=== PATIENT | female | born 1965 | race Caucasian/White ===

== ENCOUNTER → 2020-09-12 14:27 | Outpatient (BNVA) | payer MEDICAID, SELFPAY | PROVIDERS: PCP Internal Medicine; Referring Provider Internal Medicine; Visit Provider Nurse Practitioner Family | DX: Z01.818 Encounter for other preprocedural examination (principal) | CPT/HCPCS: 99203 ==

== ENCOUNTER 2020-11-09 08:34 | Outpatient (REF) | payer MEDICAID, SELFPAY | END 2020-11-09 08:35 | disposition home or self-care (01) | LOC: HO.HOSX 08:34 | PROVIDERS: Visit Provider Orthopaedic Surgery | DX: Z13.89 Encounter for screening for other disorder (principal) ==

== ENCOUNTER 2020-11-12 13:37 | Outpatient (REF) | payer MEDICAID, SELFPAY ==
--- NOTE | 2020-11-12 13:46 | MM_ITS ---
EXAMINATION: MM SCREENING DIGITAL BREAST TOMOSYNTHESIS, BILATERAL CLINICAL INFORMATION: Screening. Asymptomatic. The lifetime risk of breast cancer based on the Tyrer-Cuzick Model is 8%. COMPARISON: Mammography: 06/07/2019, 05/19/2018, 05/06/2017 TECHNIQUE: Digital breast tomosynthesis is performed in both the craniocaudal and mediolateral oblique views along with computer-aided detection (CAD). Synthesized 2D images are generated from the tomosynthesis. FINDINGS: There are scattered areas of fibroglandular density (ACR BI-RADS breast composition Category b). Breast tissue composition borders on heterogeneously dense. Parenchymal pattern is similar to prior studies. Scattered asymmetric parenchymal densities upper left breast are stable to decreased. Neither breast shows interval mass or architectural abnormality or abnormal calcifications. Skin contours are smooth. No significant changes. MM/MM tomosynthesis screening BI IMPRESSION: No significant changes from prior studies. ASSESSMENT: BI-RADS 2: Benign RECOMMENDATION: Routine annual mammography screening. This patient's information was entered into a reminder system with a target due date for their next mammogram.
== END 2020-11-12 13:38 | disposition home or self-care (01) ==
LOC: HO.MAMMO 13:37
PROVIDERS: PCP Internal Medicine; Visit Provider Internal Medicine
DX: Z12.31 Encounter for screening mammogram for malignant neoplasm of breast (principal)
CPT/HCPCS: 77063; 77067

== ENCOUNTER 2020-11-29 07:37 | Day surgery (SDC) | payer MEDICAID, SELFPAY ==
[2020-11-21 16:03] VITALS: BMI 29.2
--- NOTE | 2020-11-27 14:15 | HO.ANESPROP2 ---
Documented by User: Zahra Baeza 11/27/20 14:16 HPI - Anesthesia Eval Consult details Narrative: 55yo F for Colonoscopy PMFSH Past Medical History Medical History Asthma Diabetes mellitus Encounter for screening for malignant neoplasm of colon Gouty arthritis of left great toe HTN (hypertension) Migraine headache Right knee pain Family History Family History Father No problems noted. Mother No problems noted. Surgical History Surgical History No significant past surgical history Social History Social History Are you a primary transitions rn care coordinator to a significant other at home: No Do you presently have visiting nurse or other home services: No Alcohol intake: never Smoking Status: Never smoker Second Hand Smoke Exposure: No Use of substances other than those prescribed or required for medical reasons: No Have you been hit, kicked, punched, or otherwise hurt by someone within the past year? If so, by whom?: No Advance Directives: No Advance Directives Information Provided: No Advance Directives on File: No Recently lost weight without trying: No Meds Allergies Allergy/AdvReac Type Severity Reaction Status Date / Time No Known Allergies Allergy Unverified 11/21/20 16:00 [No Known Allergies*] Home Medications Medication Instructions Recorded Confirmed Type cholecalciferol (vitamin D3) 25 25 mcg PO DAILY 09/12/20 11/21/20 History mcg (1,000 unit) capsule famotidine 20 mg tablet 20 mg PO BID 09/12/20 11/21/20 History losartan 50 mg tablet 50 mg PO DAILY 09/12/20 11/21/20 History metformin 500 mg tablet 500 mg PO BID 09/12/20 11/21/20 History naproxen 375 mg tablet 375 mg PO BID PRN 09/12/20 11/21/20 History simethicone 125 mg capsule 125 mg PO TID-QID PRN 09/12/20 11/21/20 History sumatriptan succinate 50 mg tablet See Rx Instructions PO .COMPLEX PRN 09/12/20 11/21/20 History tramadol 50 mg tablet 50 mg PO Q8H PRN 09/12/20 11/21/20 History Exam Exam Date and Time: November 27, 2020 1415 Height,Weight and Vital Signs: Height 5 ft 2 in Weight 72.575 kg Assessment and Plan Assessment Anesthesia Assessment: Chart Reviewed Documented by User: Jasmine Davis 11/29/20 08:21 [facility] Past Medical History Medical History Asthma Diabetes mellitus Encounter for screening for malignant neoplasm of colon Gouty arthritis of left great toe HTN (hypertension) Migraine headache Right knee pain Family History Family History Father No problems noted. Mother No problems noted. Surgical History Surgical History No significant past surgical history Social History Social History Are you a primary transitions rn care coordinator to a significant other at home: No Do you presently have visiting nurse or other home services: No Alcohol intake: never Smoking Status: Never smoker Second Hand Smoke Exposure: No Use of substances other than those prescribed or required for medical reasons: No Have you been hit, kicked, punched, or otherwise hurt by someone within the past year? If so, by whom?: No Advance Directives: No Advance Directives Information Provided: No Advance Directives on File: No Recently lost weight without trying: No Meds Allergies Allergy/AdvReac Type Severity Reaction Status Date / Time No Known Allergies Allergy Unverified 11/21/20 16:00 [No Known Allergies*] Home Medications Medication Instructions Recorded Confirmed Type cholecalciferol (vitamin D3) 25 25 mcg PO DAILY 09/12/20 11/21/20 History mcg (1,000 unit) capsule famotidine 20 mg tablet 20 mg PO BID 09/12/20 11/21/20 History losartan 50 mg tablet 50 mg PO DAILY 09/12/20 11/21/20 History metformin 500 mg tablet 500 mg PO BID 09/12/20 11/21/20 History naproxen 375 mg tablet 375 mg PO BID PRN 09/12/20 11/21/20 History simethicone 125 mg capsule 125 mg PO TID-QID PRN 09/12/20 11/21/20 History sumatriptan succinate 50 mg tablet See Rx Instructions PO .COMPLEX PRN 09/12/20 11/21/20 History tramadol 50 mg tablet 50 mg PO Q8H PRN 09/12/20 11/21/20 History Exam Airway Mallampati Class: II TM Dist: >3cm Neck ROM: Full Assessment and Plan Assessment Anesthesia Assessment: Anesthesia Plan Discussed and Chart Reviewed Final Anesthetic Review NPO: Yes ASA Class: II Final Preanesthetic Review: No Changes in Pt Med Stat, Meds/Allgs Chart Reviewed, Consent Obtained/Reviewed and Anes Risks/Benef Reviewed Patient Risk: Intermediate Procedure Risk: Low Assessment/Block/Sedation in SS: Assess/Block/Sedation-SS Anesthetic Plan Anesthetic Plan: MAC: Disposition: Standard PACU
[2020-11-29 08:01] VITALS: BP 138/80; PULSE 91; RESP 18; TEMP 36.1; O2SAT 97
--- NOTE | 2020-11-29 08:21 | MHC.SHP ---
Pre-Procedural Eval Section B Chief Complaint: Screening Details of Present Illness: colon cancer screening#1 Relevant Family History (Specify if Yes): No Relevant Social History: None Present Medications: see Short Stay Collaborative assessment Medical History: No relevant PMH (Asthma, Diabetes,Hypertension) History of Previous Operations: No relevant previous surgery Allergies: Allergies Allergy/AdvReac Type Severity Reaction Status Date / Time No Known Allergies Allergy Unverified 11/21/20 16:00 [No Known Allergies*] Review of Systems Sugical H&P ROS: Negative: Constitution, Cardiovascular, Respiratory, Gastrointestinal and Endocrine Exam Surgical H&P Exam: Normal: HEENT, Normal: Heart, Normal: Lungs, Normal: Extremities and Normal: Abdomen Plan Diagnosis/Plan: Unchanged I have reviewed the history and physical and performed a pertinent physical examination on my patient. No changes have occurred unless specified.yes
[2020-11-29 08:25] LABS: Glucose, Whole Blood 149 mg/dL (60-115)
[2020-11-29 09:15] VITALS: BP 92/51; PULSE 88; RESP 16; TEMP 36.1; O2SAT 97
--- NOTE | 2020-11-29 09:15 | PM.PROC ---
Brief Operative Note Date of procedure: 11/29/20 Pre-op diagnosis: Colon Cancer Screening Post-op diagnosis: other (Neg, 1+ internal hemorrhoids.) Procedure: Colonoscopy Anesthesia: MAC (REBA Lugo) Surgeon: Luis Zuluaga Estimated blood loss (mL): 0 Pathology: none sent Condition: stable Disposition: PACU
--- NOTE | 2020-11-29 09:22 | P.HPSUR_ITS ---
Pre-Procedural Eval Section B Chief Complaint: Screening Details of Present Illness: Colon Cancer Screening--hx polyps Relevant Family History (Specify if Yes): No Relevant Social History: None Present Medications: see Short Stay Collaborative assessment Medical History: Significant History (Diabetes) History of Previous Operations: Relevant previous surgery/procedure and date(s) (colonoscopies--hx TAs) Allergies: Allergies Allergy/AdvReac Type Severity Reaction Status Date / Time No Known Allergies Allergy Unverified 11/21/20 16:00 [No Known Allergies*] Review of Systems Sugical H&P ROS: Negative: Constitution, Cardiovascular, Respiratory and G astrointestinal and Yes, Specify: Endocrine (Diabetic) Exam Surgical H&P Exam: Normal: HEENT, Normal: Heart, Normal: Lungs and Normal: Abdomen Plan Diagnosis/Plan: Unchanged I have reviewed the history and physical and performed a pertinent physical examination on my patient. No changes have occurred unless specified.--Yes
[2020-11-29 09:30] VITALS: BP 112/64; PULSE 85; RESP 16; TEMP 36.1; O2SAT 99
--- NOTE | 2020-11-29 09:58 | HO.POSTANES ---
Post Anesthesia Evaluation Post Anesthesia Evaluation Vital Signs: Vital Signs Temp Pulse Resp BP Pulse Ox 11/29/20 09:30 97 F 85 16 112/64 99 11/29/20 09:15 97 F 88 16 92/51 L 97 11/29/20 08:01 97.0 F 91 18 138/80 97 Anesthesia: General (tiva) Mental Status: Awake Pain Control: Satisfactory Nausea/Vomiting: None Hydration: Adequate Anesthesia-Related Issues: No Anes. Related Issues
--- NOTE | 2020-11-29 09:59 | PM.PROC ---
Brief Operative Note Date of procedure: 11/29/20 Pre-op diagnosis: Hx of polyps, screening Post-op diagnosis: other (Polyps, [id number]) Procedure: Colonoscopy CSP and excisional polypectomy with cbf. Anesthesia: MAC (Romeo Lugo CRNA) Surgeon: Emilia Zuluaga Estimated blood loss (mL): 5 Pathology: other (Ascending colon polyp, dim polyp-Hepatic Flexure) Condition: stable Disposition: PACU
--- NOTE | 2020-11-29 11:17 | OP_ITS ---
SURGEON: Emilia Zuluaga MD PREOPERATIVE DIAGNOSIS: Colon cancer screening. POSTOPERATIVE DIAGNOSIS: Normal exam, 1+ internal hemorrhoids. PROCEDURE PERFORMED: Colonoscopy. ESTIMATED BLOOD LOSS: No blood loss. COMPLICATIONS: No complications. ANESTHESIA: Monitored. ANESTHESIOLOGIST: Kevyn Lugo CRNA. ASSISTANTS: No anesthesiology physician assistant. SPECIMENS: No specimens removed. The patient has no listed primary care. BEHAVIORAL HEALTH CONSULTANT: Dr. Zuluaga. CONDITION: Postprocedure, stable. DESCRIPTION OF PROCEDURE: Digital rectal exam revealed no specific lesion. Video colonoscope was introduced without difficulty. It was navigated into the rectosigmoid and sigmoid and up to descending to transverse colon. At this point, gentle extrinsic abdominal pressure was applied to facilitate movement through hepatic flexure, right colon, and into the cecum. Appendiceal orifice was seen. Ileocecal valve was well seen. No mucosal abnormalities were appreciated. Prep was good to excellent. Scope was slowly removed. Good rotational views. No additional lesions were seen. Anorectal verge was clear. There were 1+ internal hemorrhoids in the anal canal. PLAN AND CURRENT RECOMMENDATIONS: Repeat asymptomatic screening in this patient will continue to be at 10 years. GRAFT OR IMPLANTS: No grafts or implants. Emilia Zuluaga MD MEN/MODL / [id number] MTDD
== END 2020-11-29 10:11 | disposition home or self-care (01) ==
PROVIDERS: PCP Internal Medicine; Visit Provider Internal Medicine Gastroenterology
PROC: 0DJD8ZZ Inspection of Lower Intestinal Tract, Via Natural or Artificial Opening Endoscopic (ICD-10-PCS; CPT 45378; principal; 2020-11-29 09:10)
DX: Z12.11 Encounter for screening for malignant neoplasm of colon (principal); Z86.010 Personal history of colon polyps; K64.8 Other hemorrhoids; E11.9 Type 2 diabetes mellitus without complications; J45.909 Unspecified asthma, uncomplicated; Z79.84 Long term (current) use of oral hypoglycemic drugs; Z79.899 Other long term (current) drug therapy
CPT/HCPCS: 45378; 82947

== ENCOUNTER 2020-12-06 08:53 | Outpatient (REF) | payer MEDICAID, SELFPAY ==
--- NOTE | 2020-12-06 13:15 | XR_ITS ---
EXAMINATION: XR KNEE, LEFT XR KNEE, RIGHT XR KNEE STANDING, BILATERAL CLINICAL INFORMATION: Bilateral knee pain. COMPARISON: None TECHNIQUE: AP bilateral knees standing. Two views each knee. FINDINGS: AP BILATERAL KNEE: There is mild reduction in the medial and lateral compartment joint space of both knees without bony erosive changes, loose bodies or joint effusion. LEFT KNEE: Lateral and sunrise views reveal no fracture, bony erosive changes or loose bodies. No abnormal joint effusion. RIGHT KNEE: Mild reduction in the patellofemoral compartment with periarticular spurring. No bony erosive changes or loose bodies seen. XR/XR knee LT 2V IMPRESSION: Mild reduction in medial and lateral compartment joint space on upright view standing likely early degenerative changes. Mild degenerative changes also involving the right knee patellofemoral compartment with periarticular spurring.
--- NOTE | 2020-12-06 13:15 | XR_ITS ---
EXAMINATION: XR KNEE, LEFT XR KNEE, RIGHT XR KNEE STANDING, BILATERAL CLINICAL INFORMATION: Bilateral knee pain. COMPARISON: None TECHNIQUE: AP bilateral knees standing. Two views each knee. FINDINGS: AP BILATERAL KNEE: There is mild reduction in the medial and lateral compartment joint space of both knees without bony erosive changes, loose bodies or joint effusion. LEFT KNEE: Lateral and sunrise views reveal no fracture, bony erosive changes or loose bodies. No abnormal joint effusion. RIGHT KNEE: Mild reduction in the patellofemoral compartment with periarticular spurring. No bony erosive changes or loose bodies seen. XR/XR knee RT 2V IMPRESSION: Mild reduction in medial and lateral compartment joint space on upright view standing likely early degenerative changes. Mild degenerative changes also involving the right knee patellofemoral compartment with periarticular spurring.
--- NOTE | 2020-12-06 13:15 | XR_ITS ---
EXAMINATION: XR KNEE, LEFT XR KNEE, RIGHT XR KNEE STANDING, BILATERAL CLINICAL INFORMATION: Bilateral knee pain. COMPARISON: None TECHNIQUE: AP bilateral knees standing. Two views each knee. FINDINGS: AP BILATERAL KNEE: There is mild reduction in the medial and lateral compartment joint space of both knees without bony erosive changes, loose bodies or joint effusion. LEFT KNEE: Lateral and sunrise views reveal no fracture, bony erosive changes or loose bodies. No abnormal joint effusion. RIGHT KNEE: Mild reduction in the patellofemoral compartment with periarticular spurring. No bony erosive changes or loose bodies seen. XR/XR knee standing BI IMPRESSION: Mild reduction in medial and lateral compartment joint space on upright view standing likely early degenerative changes. Mild degenerative changes also involving the right knee patellofemoral compartment with periarticular spurring.
== END 2020-12-06 08:54 | disposition home or self-care (01) ==
LOC: HO.HOSX 08:53
PROVIDERS: Visit Provider Orthopaedic Surgery
DX: M17.11 Unilateral primary osteoarthritis, right knee (principal); E11.9 Type 2 diabetes mellitus without complications
CPT/HCPCS: 20610; 73560; 73565; 99202

== ENCOUNTER 2021-05-20 07:22 | Emergency (ER) | payer MEDICAID, SELFPAY ==
--- NOTE | ~2021-05-20 | XR_ITS ---
EXAMINATION: XR FOOT, LEFT CLINICAL INFORMATION: Swelling and redness and pain left second and third toes. Evaluate for fracture or osteomyelitis COMPARISON: Previous x-ray July 2019 TECHNIQUE: AP, lateral, and oblique views of the left foot. FINDINGS: Bone alignment is normal. No acute fracture or dislocation is seen. No x-ray evidence of osteomyelitis is. There is a well-corticated ossification inferior to the medial malleolus that is unchanged, likely related to old trauma. Joint spaces are normal. Soft tissues are normal. XR/XR foot LT min 3V IMPRESSION: No acute fracture or x-ray evidence of osteomyelitis.
[2021-05-20 07:53] VITALS: BP 146/76; PULSE 86; RESP 14; TEMP 36.9; O2SAT 97; BMI 25.8
--- NOTE | 2021-05-20 09:31 | ED.EXTPRO ---
HPI - Extremity Problem General Chief complaint: Extremity Problem Stated complaint: left foot pain and swelling Time Seen by Provider: 05/20/21 08:12 Source: patient Mode of arrival: ambulatory Limitations: language barrier ( [place]an speaking only) History of Present Illness HPI Narrative: 55-year-old female who presents emergency department for evaluation of pain and swelling of her left 3rd and 4th toes. The symptoms started on Thursday, 3 days prior to evaluation, while the patient was at work. She states the pain came on suddenly and has been constant since then, the pain is severe, aching sensation which is 10/10 at its worst. Patient denied any injury. She denied any fever, chills, fatigue, nausea, vomiting, chest pain or shortness of breath. Patient states this is her 3rd episode of this type of pain and her last episode occurred approximately 6 months prior. She states that she was seen in the emergency department for both episodes but does not know the diagnosis that she was given or the treatment she was given. She states that she has not had any blood work or x-rays. She does have history of diabetes mellitus. Related Data Home Medications Medication Instructions Recorded Confirmed cholecalciferol (vitamin D3) 25 25 mcg PO DAILY 09/12/20 11/21/20 mcg (1,000 unit) capsule famotidine 20 mg tablet 20 mg PO BID 09/12/20 11/21/20 losartan 50 mg tablet 50 mg PO DAILY 09/12/20 11/21/20 metformin 500 mg tablet 500 mg PO BID 09/12/20 11/21/20 naproxen 375 mg tablet 375 mg PO BID PRN 09/12/20 11/21/20 simethicone 125 mg capsule 125 mg PO TID-QID PRN 09/12/20 11/21/20 sumatriptan succinate 50 mg tablet See Rx Instructions PO .COMPLEX PRN 09/12/20 11/21/20 tramadol 50 mg tablet 50 mg PO Q8H PRN 09/12/20 11/21/20 Previous Rx's Medication Instructions Recorded cephalexin 500 mg PO QID 7 Days #28 cap 05/20/21 colchicine [Colcrys] See Rx Instructions .ROUTE 05/20/21 .COMPLEX #6 tab Allergies Allergy/AdvReac Type Severity Reaction Status Date / Time No Known Allergies Allergy Verified 12/06/20 14:14 [No Known Allergies*] Review of Systems Review of Systems: Yes all other systems are reviewed and are negative [facility] Past Medical History [facility] Narrative: Social history: She denies tobacco, alcohol and drug use. Medical History Asthma Diabetes mellitus Encounter for screening for malignant neoplasm of colon Gouty arthritis of left great toe HTN (hypertension) Migraine headache Right knee pain Surgical History Hx of colonoscopy No significant past surgical history Family History Family History Father No problems noted. Mother No problems noted. 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 Physical Exam Vital Signs: Vital Signs: Last Vital Signs Temp 98.4 F 05/20/21 07:53 Pulse 86 05/20/21 07:53 Resp 14 05/20/21 07:53 BP 146/76 H 05/20/21 07:53 Pulse Ox 97 05/20/21 07:53 Body Mass Index 25.8 Const: General: cooperative and healthy appearing Nutritional Appearance: average body habitus Orientation/consciousness: oriented to person and oriented to place Limitations: no limitations HENMT: Head: Yes normal to inspection, Yes normocephalic and Yes atraumatic Resp: Effort & Inspection: normal respiratory effort Neuro: General: oriented to person and oriented to place Extrem: Other: The patient has erythema of the 2nd toe of the left foot with swelling of this toe, erythema does extend to the 3rd toe and also to the the distal aspect of the 2nd and 3rd metatarsals, patient has excruciating tenderness with palpation over the MTP joints of the 2nd 3rd toe. Psych: Appearance: grossly normal Mental Status: mental status grossly normal Speech and movement: Normal speech and movement present Affect: normal affect Attitude: cooperative Course Course Course Narrative: 55-year-old female who presents emergency department for evaluation of sudden onset of pain to the 2nd and 3rd toes of her left foot x3 days. Her examination did reveal erythema over the 2nd and 3rd toes extending to the proximal 2nd and 3rd metatarsal areas, patient has significant tenderness with palpation over the MTP joints with soft tissue swelling of the 2nd toe. The differential includes was not limited to cellulitis, osteomyelitis and gout. I did order laboratory evaluation and x-rays of the left toes. Patient's pain was treated with ibuprofen 600 mg orally. MDM - Extremity (Nontraumatic) Lab Data Result diagrams: 05/20/21 10:10 05/20/21 10:10 Labs: Lab Results 05/20/21 05/20/21 Range/Units 10:10 10:10 WBC 6.4 (4.8-10.8) X10*3/uL RBC 3.85 L (4.20-5.50) X10*6/uL Hgb 11.8 L (12.0-16.0) g/dl Hct 36.3 L (37-47) % MCV 94.3 (80-98) fL MCH 30.6 (27.0-33.0) pg MCHC 32.5 (31.0-35.0) g/dl RDW 13.5 (11.0-16.0) % Plt Count 288 (160-400) X10*3/uL MPV 9.4 (9.4-12.3) fL Immature Gran % (Auto) 0.3 (0.0-0.4) % Neut % (Auto) 49.7 (45-73) % Lymph % (Auto) 42.7 H (20-40) % [place] % (Auto) 5.6 (2-11) % Eos % (Auto) 1.1 (0-4) % Baso % (Auto) 0.6 (0-2) % Lymph # (Auto) 2.8 (1.2-4.9) X10*3/uL [place] # (Auto) 0.4 (0.1-1.2) X10*3/uL Eos # (Auto) 0.1 (0.0-0.4) X10*3/uL Baso # (Auto) 0.0 (0.0-0.2) X10*3/uL Abs Immat Gran (auto) 0.02 (0.00-0.03) X10*3/uL Absolute Neuts (auto) 3.2 (2.0-8.3) X10*3/uL Absolute Nucleated RBC 0.000 (0.0-0.012) X10*3/uL Nucleated RBC % (auto) 0.0 (0.0-0.2) /100WBC Sodium 139 (135-145) mmol/L Potassium 3.8 (3.3-5.1) mmol/L Chloride 107 (96-108) mmol/L Carbon Dioxide 29 (22-29) mmol/L Anion Gap 7 L (12-20) BUN 17 H (9-16) mg/dL Creatinine 0.76 (0.5-1.4) mg/dL Estim Creat Clear Calc 87.3 Estimated GFR > 60 Random Glucose 155 H (60-115) mg/dL Uric Acid 3.1 (2.4-5.7) mg/dL Calcium 9.0 (8.4-10.2) mg/dL Total Bilirubin 0.6 (0.0-1.0) mg/dL AST 14 (5-31) U/L ALT 13 (0-31) U/L Alkaline Phosphatase 91 (39-117) U/L Total Protein 6.8 (6.5-8.0) g/dL Albumin 3.9 (3.5-5.0) g/dL Discharge Plan Discharge Clinical Impression: Gout Qualifiers: Gout site: toe Gout etiology: unspecified cause Chronicity: acute Laterality: left Qualified Code(s): M10.9 - Gout, unspecified Cellulitis Qualifiers: Site of cellulitis: extremity Site of cellulitis of extremity: toe Laterality: left Qualified Code(s): L03.032 - Cellulitis of left toe Patient Disposition: Home, Self-Care Instructions: Cellulitis (ED), Gout (ED) Additional Instructions: your blood work was normal. Your x-rays were unremarkable. Your symptoms are consistent with gout or cellulitis (infection the toes). The symptoms difficult to tell the difference between these 2 conditions therefore I am treating her for both. Take Keflex (cephalexin) 500 mg pills, 1 pill 4 times a day for 7 days, this is an antibiotic And which treated infection. Take Colcrys (colchicine) 0.6 mg pills, take 2 pills and then 1 hour later take 1 pill. This medication will last for 3 days.You can repeat this medication 3 days if you are still having symptoms. Follow-up with your doctor in 2 days. Please return to the emergency department if your symptoms get worse or if you develop any symptoms that are concerning to you. Prescriptions: New colchicine [Colcrys] 0.6 mg tablet See Rx Instructions .ROUTE .COMPLEX Qty: 6 RF: 0 cephalexin 500 mg capsule 500 mg PO QID 7 Days Qty: 28 RF: 0 No Action simethicone [Gas Relief (simethicone)] 125 mg capsule 125 mg PO TID-QID PRN (Reason: Heartburn) RF: 0 tramadol 50 mg tablet 50 mg PO Q8H PRN (Reason: Pain) RF: 0 famotidine 20 mg tablet 20 mg PO BID RF: 0 metformin 500 mg tablet 500 mg PO BID RF: 0 naproxen 375 mg tablet 375 mg PO BID PRN (Reason: Pain) RF: 0 Hold Instructions: Resume on 12/06/20. post polypectomy sumatriptan succinate [Imitrex] 50 mg tablet See Rx Instructions PO .COMPLEX PRN (Reason: Migraine Headache) RF: 0 losartan 50 mg tablet 50 mg PO DAILY RF: 0 cholecalciferol (vitamin D3) 25 mcg (1,000 unit) capsule 25 mcg PO DAILY RF: 0 Print Language: [place]
[2021-05-20] MEDS: Ibuprofen 600 MG TABLET PO (10:07)
[2021-05-20 10:13] LABS: MANUAL DIFF FLAG NO
[2021-05-20 10:15] LABS: Basophils Percent Auto 0.6 % (0-2); Eosinophils Absolute Auto 0.1 X10*3/uL (0.0-0.4); Eosinophils Percent Auto 1.1 % (0-4); Hematocrit 36.3 % (37-47); Hemoglobin 11.8 g/dl (12.0-16.0); Imm Gran Abs Auto 0.02 X10*3/uL (0.00-0.03); Imm Gran Pct Auto 0.3 % (0.0-0.4); Lymphocytes Absolute Auto 2.8 X10*3/uL (1.2-4.9); Lymphocytes Percent Auto 42.7 % (20-40); Mean Corpuscular HGB Conc 32.5 g/dl (31.0-35.0); Mean Corpuscular Hemoglobin 30.6 pg (27.0-33.0); Mean Corpuscular Volume 94.3 fL (80-98); Mean Platelet Volume 9.4 fL (9.4-12.3); Monocytes Absolute Auto 0.4 X10*3/uL (0.1-1.2); Monocytes Percent Auto 5.6 % (2-11); Neutrophils Absolute Auto 3.2 X10*3/uL (2.0-8.3); Neutrophils Percent Auto 49.7 % (45-73); Platelet Count 288 X10*3/uL (160-400); Red Blood Count 3.85 X10*6/uL (4.20-5.50); Red Cell Distribution Width 13.5 % (11.0-16.0); White Blood Count 6.4 X10*3/uL (4.8-10.8)
[2021-05-20 10:54] LABS: Alanine Aminotransferase 13 U/L (0-31); Albumin Level 3.9 g/dL (3.5-5.0); Alkaline Phosphatase 91 U/L (39-117); Anion Gap 7 (12-20); Aspartate Amino Transferase 14 U/L (5-31); Bilirubin Total 0.6 mg/dL (0.0-1.0); Blood Urea Nitrogen 17 mg/dL (9-16); Carbon Dioxide 29 mmol/L (22-29); Chloride 107 mmol/L (96-108); Creatinine Clr Calc Pharmacy 87.3; Estimated Glomerular Filt Rate > 60; Glucose Random 155 mg/dL (60-115); Potassium 3.8 mmol/L (3.3-5.1); Sodium 139 mmol/L (135-145); Total Protein 6.8 g/dL (6.5-8.0)
[2021-05-20 12:15] LABS: Uric Acid 3.1 mg/dL (2.4-5.7)
== END 2021-05-20 13:16 | disposition home or self-care (01) ==
PROVIDERS: Emergency Provider Emergency Medicine Emergency Medical Services; PCP Internal Medicine
DX: L03.032 Cellulitis of left toe (principal); M10.9 Gout, unspecified; E11.9 Type 2 diabetes mellitus without complications; Z79.84 Long term (current) use of oral hypoglycemic drugs
CPT/HCPCS: 36415; 73630; 80053; 84550; 85025; 99283

== ENCOUNTER 2021-08-15 10:00 | Outpatient (RCR) | payer MEDICAID, SELFPAY | END 2021-08-15 11:10 | disposition home or self-care (01) | LOC: HO.PT 10:00 | PROVIDERS: PCP Internal Medicine; Visit Provider Registered Nurse Community Health | DX: M79.672 Pain in left foot (principal) | CPT/HCPCS: 97110; 97112; 97140; 97161; 97530 ==

== ENCOUNTER 2022-04-16 09:37 | Outpatient (REF) | payer MEDICAID, SELFPAY ==
[2022-04-16 10:36] LABS: COVID-19 Test Negative (Negative)
== END 2022-04-16 09:38 | disposition home or self-care (01) ==
LOC: HO.LAB 09:37
PROVIDERS: Visit Provider Internal Medicine
DX: Z20.822 Contact with and (suspected) exposure to COVID-19 (principal)
CPT/HCPCS: 87635; C9803

== ENCOUNTER → 2022-08-21 12:06 | Outpatient (BNVA) | payer MEDICAID, SELFPAY | PROVIDERS: PCP Internal Medicine; Referring Provider Internal Medicine; Visit Provider Internal Medicine Cardiovascular Disease | DX: R06.02 Shortness of breath (principal) | CPT/HCPCS: 93005; 99202 ==

== ENCOUNTER 2022-09-05 08:52 | Emergency (ER) | payer MEDICAID, SELFPAY ==
--- NOTE | ~2022-09-05 | XR_ITS ---
EXAMINATION: XR CHEST CLINICAL INFORMATION: Cough. COMPARISON: None TECHNIQUE: Frontal view of the chest was obtained. FINDINGS: No significant abnormality is noted involving the heart, lungs, mediastinum, bony thorax or soft tissues. XR/XR chest 1V IMPRESSION: No acute cardiopulmonary process.
[2022-09-05 09:02] VITALS: BP 146/93; PULSE 99; RESP 18; TEMP 36.8; O2SAT 97; BMI 30.2
[2022-09-05 09:30] LABS: COVID-19 Test Negative (Negative); IDNOW Serial# 16C4AD1C
--- NOTE | 2022-09-05 10:22 | ED_ITS ---
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 Patient states that she has been consistently coughing for the last week with mild nasal congestion that does not seem to be getting any better. Patient denies any dizziness, lightheadedness, abdominal pain, nausea, vomiting, fever, chills, blurry vision, double vision, loss of vision, chest pain, difficulty breathing, shortness of breath, back pain, night sweats, pain with urination, increased urinary frequency, increased urinary urgency, blood in her urine or stool, syncope or a near syncopal episode, recent trauma or falls, bowel incontinence, bladder incontinence, bowel retention, bladder retention, or any other complaints at this time. Onset (ago): week(s) (1) Severity: mild Severity scale (1-10): 2 Relieving factors: none Exacerbating factors: none Associated symptoms: cough Treatments prior to arrival: none Related Data Home Medications Medication Instructions Recorded Confirmed cholecalciferol (vitamin D3) 25 25 mcg PO DAILY 09/12/20 08/21/22 mcg (1,000 unit) capsule famotidine 20 mg tablet 20 mg PO BID 09/12/20 08/21/22 losartan 50 mg tablet 50 mg PO DAILY 09/12/20 08/21/22 naproxen 375 mg tablet 375 mg PO BID PRN Pain 09/12/20 08/21/22 simethicone 125 mg capsule (Gas 125 mg PO TID-QID PRN Heartburn 09/12/20 08/21/22 Relief (simethicone)) sumatriptan succinate 50 mg tablet See Rx Instructions PO .COMPLEX 09/12/20 08/21/22 (Imitrex) PRN Migraine Headache tramadol 50 mg tablet 50 mg PO Q8H PRN Pain 09/12/20 08/21/22 albuterol sulfate 90 mcg/actuation 2 puff inhalation Q4H PRN 08/21/22 08/21/22 aerosol inhaler (ProAir HFA) dapagliflozin 5 mg tablet (Farxiga) 5 mg PO QAM 08/21/22 08/21/22 glipizide 10 mg tablet 10 mg PO DAILY 08/21/22 08/21/22 metformin 1,000 mg tablet 1,000 mg PO BID 08/21/22 08/21/22 omeprazole 20 mg capsule,delayed 20 mg PO DAILY 08/21/22 08/21/22 release Previous Rx's Medication Instructions Recorded cephalexin 500 mg capsule 500 mg PO QID 7 days #28 caps 05/20/21 colchicine 0.6 mg tablet (Colcrys) See Rx Instructions .Route 05/20/21 .COMPLEX #6 tabs benzonatate 100 mg capsule 100 mg PO BID PRN cough 7 days #14 09/05/22 caps doxycycline hyclate 100 mg tablet 100 mg PO BID 7 days #14 tabs 09/05/22 prednisone 20 mg tablet 20 mg PO DAILY 12 days #26 tabs 09/05/22 Allergies Allergy/AdvReac Type Severity Reaction Status Date / Time No Known Allergies Allergy Verified 09/05/22 09:02 [No Known Allergies*] Review of Systems Constitutional: Constitutional: Reports no additional constitutional complaints, Denies chills, Denies fever(s) and Denies night sweats Eyes: Eyes: Reports no additional eye complaints, Denies blurry vision, Denies change in vision, Denies diplopia, Denies eye discharge, Denies loss of vision and Denies eye pain ENT: Denies dizziness and Reports sinus pressure Cardiovascular: Cardiovascular: Reports no additional cardiovascular complaints, Denies chest pain, Denies lightheadedness, Denies Loss of Consciousness and Denies dyspnea Respiratory: Respiratory: Reports no additional respiratory complaints, Reports cough and Denies dyspnea Gastrointestinal: Gastrointestinal: Reports no additional gastrointestinal complaints, Denies abdominal pain, Denies melena, Denies hematochezia, Denies change in bowel habits and Denies change in stool character Genitourinary: Genitourinary: Denies hematuria, Denies urinary frequency, Denies dysuria, Denies urinary incontinence, Denies urinary hesitancy and Denies urinary urgency Musculoskeletal: Musculoskeletal: Reports no additional musculoskeletal complaints, Denies numbness and Denies tingling Neurologic: Denies dizziness, Denies loss of vision, Denies numbness and Denies tingling Psychiatric: Psychiatric: Reports no additional psychiatric complaints Endocrine: Endocrine: Reports no additional endocrine complaints Hematologic/Lymphatic: Hematologic/Lymphatic: Reports no additional hematologic/lymphatic complaints Allergic/Immunologic: Allergic/Immunologic: Reports no additional allerg ic/immunologic complaints PMFSH Past Medical History Attestation statement: The following information was validated with the patient. Source: old records reviewed Medical History Asthma Diabetes mellitus Encounter for screening for malignant neoplasm of colon Gouty arthritis of left great toe HTN (hypertension) Migraine headache Right knee pain Surgical History Hx of colonoscopy No significant past surgical history Family History Family History Father No problems noted. Mother No problems noted. 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 Physical Exam ED Vital Signs: Vital Signs - 24 hr 09/05/22 09:02 Temperature 98.2 F Pulse Rate 99 Respiratory Rate 18 Blood Pressure 146/93 H Pulse Oximetry 97 Oxygen Delivery Method Room Air BMI result Body Mass Index 30.2 Const General: cooperative, no acute distress, alert and awake Nutritional Appearance: well nourished Orientation/consciousness: patient oriented x3 Limitations: no limitations [facility] Head: Yes normal to inspection and Yes atraumatic Ears: hearing grossly normal bilaterally and external ears normal General nose exam: Normal external nose present, no nasal discharge noted and no epistaxis Face and sinus: Yes normal facial exam, No abrasion and No laceration Mouth: Normal oral and palatal mucosa present, no drooling and no muffled voice Eyes General: appearance normal, both eyes and all related structures Periorbital: periorbital findings normal Eyelids: Yes eyelids normal Conjunctivae: conjunctivae normal Pupils: Equal, round and reactive pupils present EOM: EOMs intact bilaterally Neck Neck: Yes normal visual inspection, Yes full ROM and Yes no lymphadenopathy Chest Chest palpation & inspection: normal inspection of the chest Resp Effort & Inspection: normal respiratory effort and able to speak in complete sentences Auscultation: clear to auscultation bilaterally Cardio Rate: regular rate Rhythm: regular rhythm GI Inspection: Yes normal to inspection Neuro General: patient oriented x3 and moves all extremities Cranial nerves: Yes Equal, round and reactive pupils present Cognition (Neuro): normal cognition Motor exam (neuro): 5/5 motor strength present throughout Sensory Exam: Normal double simultaneous stimulation for sensation Coordination: [id number]-[id number] test normal Extrem General: Yes normal to inspection, Yes full ROM and Yes capillary refill normal Psych Appearance: grossly normal Mental Status: mental status grossly normal Affect: normal affect Attitude: cooperative Thought process: Normal thought process present Thought content: Normal thought content present Insight: Good insight present (Psych) Medical Decision Making MDM Narrative Medical decision making narrative: Patient is a 57 year old assigned female with a history of diabetes presenting to the emergency department today with a cough. Patient's physical exam was unremarkable. Patient's rapid COVID-19 test was negative. Patient's chest x-ray showed no acute process. I explained my physical exam findings as well as all test results to the patient. I answered all questions asked by the patient. I stressed the importance of the patient taking her medication as prescribed. I stressed the importance of the patient following up with her primary care provider. I stressed the importance of the patient returning to the emergency department immediately if her symptoms were to worsen or if she were to develop any dizziness, shortness of breath, difficulty breathing, chest pain, blurry vision, loss of vision, nausea, vomiting, abdominal pain, fever, chills, back pain, or any other complaints. Patient verbalized agreement and understanding with this treatment plan and discharge. Medical Records Medical records reviewed: Yes I reviewed the patient's medical records. Lab Data Lab results reviewed: Yes I reviewed the patient's lab results. Labs: Lab Results 09/05/22 Range/Units 09:06 COVID-19 (ZAN) Negative (Negative) COVID-19 Clin Com See Note Imaging Data Chest x-ray: Attestation: I personally reviewed and interpreted this imaging study as follows: My impression: No acute process. Radiologist's impression: EXAMINATION: XR CHEST CLINICAL INFORMATION: Cough. COMPARISON: None TECHNIQUE: Frontal view of the chest was obtained. FINDINGS: No significant abnormality is noted involving the heart, lungs, mediastinum, bony thorax or soft tissues. XR/XR chest 1V IMPRESSION: No acute cardiopulmonary process. ? Dictated By: Los Valladares MD Signed By: Electronically signed by Los Valladares MD 09/05/22 0955 Discharge Plan Discharge Clinical Impression: Upper respiratory infection Patient Disposition: Home, Self-Care Instructions: Upper Respiratory Infection (ED) Additional Instructions: Follow up with your primary care provider. Return to the emergency department immediately if your symptoms worsen or if you develop any dizziness, shortness of breath, difficulty breathing, chest pain, blurry vision, loss of vision, n ausea, vomiting, abdominal pain, fever, chills, back pain, or any other complaints. Roxy un seguimiento con rothman proveedor de atenci?n primaria. Regrese al departamento de emergencias de inmediato si dion s?ntomas empeoran o si presenta mareos, falta de aire, dificultad para respirar, dolor de pecho, visi?n borrosa, p?rdida de la visi?n, n?useas, v?mitos, dolor abdominal, fiebre, escalofr?os, dolor de espalda o cualquier otras quejas. Prescriptions: New benzonatate 100 mg capsule 100 mg PO BID PRN (Reason: cough) 7 Days Qty: 14 0RF prednisone 20 mg tablet 20 mg PO DAILY 12 Days Qty: 26 0RF Rx Instructions: Take 3 tablets for 5 days THEN; Take 2 tablets for 4 days THEN; Take 1 tablet for 3 days doxycycline hyclate 100 mg tablet 100 mg PO BID 7 Days Qty: 14 0RF No Action colchicine [Colcrys] 0.6 mg tablet See Rx Instructions .ROUTE .COMPLEX Qty: 6 0RF Rx Instructions: take 2 pills ( 1.2 mg) and 1 hour later take 1 pill ( 0.6 mg ). May repeat in 3 days if still symptomatic. cephalexin 500 mg capsule 500 mg PO QID 7 Days Qty: 28 0RF simethicone [Gas Relief (simethicone)] 125 mg capsule 125 mg PO TID-QID PRN (Reason: Heartburn) tramadol 50 mg tablet 50 mg PO Q8H PRN (Reason: Pain) famotidine 20 mg tablet 20 mg PO BID naproxen 375 mg tablet 375 mg PO BID PRN (Reason: Pain) Hold Instructions: Resume on 12/06/20. post polypectomy sumatriptan succinate [Imitrex] 50 mg tablet See Rx Instructions PO .COMPLEX PRN (Reason: Migraine Headache) Rx Instructions: take 1 tab at onset of headache; if no relief may repeat 1 tab after at least 2 hrs; max = 4 tabs/24 hr PO losartan 50 mg tablet 50 mg PO DAILY cholecalciferol (vitamin D3) 25 mcg (1,000 unit) capsule 25 mcg PO DAILY albuterol sulfate [ProAir HFA] 90 mcg/actuation HFA aerosol inhaler 2 puff inhalation Q4H PRN metformin 1,000 mg tablet 1,000 mg PO BID glipizide 10 mg tablet 10 mg PO DAILY omeprazole 20 mg capsule,delayed release(DR/EC) 20 mg PO DAILY Farxiga 5 mg tablet 5 mg PO QAM Referrals: Brianna Matt MD [Primary Care Provider] - Stand Alone Forms: Work/School Release Interventions: ED Discharge Assessment Last Done: 09/05/22 10:58 Discharge Date/Time: 09/05/22 10:58 Print Language: Hungarian
== END 2022-09-05 10:58 | disposition home or self-care (01) ==
PROVIDERS: Emergency Provider Student in an Organized Health Care Education/Training Program; PCP Internal Medicine
DX: J06.9 Acute upper respiratory infection, unspecified (principal); R05.9 Cough, unspecified; Z20.822 Contact with and (suspected) exposure to COVID-19
CPT/HCPCS: 71045; 87635; 99282; 99283

== ENCOUNTER → 2022-10-23 08:17 | Outpatient (REF) | payer MEDICAID, SELFPAY ==
--- NOTE | 2022-10-23 | CA_ITS ---
Transthoracic Echocardiogram Patient (Last, First, Middle): Nita Quintanilla, Gender: Female Date of : 1965 Age: 57 Procedure Date: 10/23/2022 Procedure Type: Transthoracic Echocardiogram Location: OP Height: 152.4 cm Weight: 72.58 kg BSA: 1.70 m2 Heart Rate: bpm BP: 130 / 78 mmHg Rn Case Manager: TO Referring MD: Willy Lamar MD Rag Sorter And Cutter: Willy Lamar MD Symptoms: R06.02 - Shortness of breath Study Quality: Fair ECG Rhythm: Sinus Conclusions: - 1. Normal LV systolic function with mild LVH with grade 1 diastolic dysfunction 2. Normal cardiac valvular Doppler 3. Normal RV systolic pressure 4. No gross pericardial effusion Findings Left Ventricle Normal left ventricular size and systolic function. There is mildly increased left ventricular wall thickness. The visually estimated ejection fraction is between 55-60%. Spectral Doppler is indicative of an impaired relaxation filling pattern. E/E prime ratio is <8, consistent with normal filling pressures. Evidence suggests grade I (mild) diastolic dysfunction. Right Ventricle Normal right ventricular cavity size and systolic function. Atria Both atria are normal in size. There is no evidence of interatrial shunt. Aortic Valve Normal aortic valve structure and function. There is no aortic valve stenosis. There is no aortic valve regurgitation. Mitral Valve Normal mitral valve structure and function. There is trace mitral valve regurgitation. There is no mitral valve stenosis. Pulmonic Valve The pulmonic valve is likely normal. Tricuspid Valve Normal tricuspid valve structure. There is trace tricuspid valve regurgitation. The right ventricular systolic pressure is normal. The right ventricular systolic pressure is 16 mmHg. Normal right atrial pressure. There is no evidence of pulmonary hypertension. Great Vessels All visible segments of the aorta are normal in size. The pulmonary artery was not well visualized. Venous The inferior vena cava is normal in size and collapses greater than 50% with inspiration. Pericardium/Pleural There is no evidence of pericardial effusion. Prior Study Comparison No prior study available for comparison. Measurements 2D Linear Measurements IVSd: 1.39 0.6-0.9/0.6-1.0 cm LVIDd: 3.42 3.9-5.3/4.2-5.9 cm LVIDd Index: 2.01 2.4-3.2/2.2-3.1 cm/m2 LVIDs: 1.54 2.0-3.6 cm LVPWd: 1.35 0.7-1.1 cm LA Diam: 2.80 2.7-3.8/3.0-4.0 cm LAIDs Index: 1.65 1.5-2.3 cm/m2 LV Mass: 201.49 67-162/88-224 g LV Mass Index: 118.53 43-95/49-115 g/m2 LVOT Diam: 2.00 3.0+(-)1.3 cm 2D Systolic Function EF 4C: 59.90 >55% EF 2C: 60.20 >55% EF BiP: 59.10 >55% Mitral Valve MV Pk E: 0.54 MV PK A: 0.58 MV Decel Time: 191.00 E/A: 0.90 E'Lateral: 7.07 E'Medial: 5.55 E/E' Med: 9.80 E/E' Lat: 7.70 PHT: 56.00 MVA PHT: 3.93 Decel Pasco: 2.85 Aortic Valve AoV Pk Dung: 1.36 AoV Mn Dung: 0.86 AoV VTI: 0.24 AoV Pk Grad: 7.00 Aov Mn Grad: 3.00 SHAKILA Cont.VTI: 2.03 LVOT LVOT Pk Dung: 0.84 LVOT Mn Dung: 0.56 LVOT VTI: 0.16 LVOT Pk Grad: 3.00 LVOT Mn Grad: 1.00 LVOT Diam: 2.00 LVOT Area: 3.14 Diastolic Function MV Pk E: 0.54 MV Pk A: 0.58 E/A: 0.90 E'Medial: 5.55 E/E' Med: 9.80 E' Laterial: 7.07 E/E' Lat: 7.70 Right Ventricle TAPSE (mm): 17.90 TVS' Dung: 10.10 Tricuspid Valve TR Pk Dung: 1.81 TR Pk Grad: 13.00 RA Press: 3.00 RVSP: 16.00 Great Vessels Aorta Sinus of Valsalva: 3.67 2.0-3.[address] [place]: 2.91 1.7-3.4 cm Ao Asc: 3.50 2.1-3.4 cm Updated in Other Vendor System with Status of Final Willy Lamar MD electronically signed on 10/23/2022 12:17:47 PM with status of Final
--- NOTE | 2022-10-23 08:20 | CA_ITS ---
Acquisition Time: 2022-10-23 09:23:23 Total Exercise Time: 00:06:45 Test Indications: Shortness of breath Medications: See H Protocol: CELESTINO Max HR: 173 BPM 104% of Pred: 165 BPM Max BP: 150/072 mmHG Max Work Load: 8.1 METS Exercise stress test with exercise 6 min 45 sec of Celestino protocol, achieving 104% MPHR, 8.1 METs, with mild sob and fatigue, no chest discomfort, with isolated PACs, with normotensive response to exercise, without EKG chagnes meeting criteria for ischemia. Test reviewed with Dr Neal Referred By: Willy Lamar Overread By: BAILEY FELICIANO
== END ==
LOC: HO.CARD 08:17
PROVIDERS: PCP Internal Medicine; Visit Provider Internal Medicine Cardiovascular Disease
DX: R06.02 Shortness of breath (principal)
CPT/HCPCS: 93017; 93306

== ENCOUNTER → 2022-11-19 12:36 | Outpatient (BNVA) | payer MEDICAID, SELFPAY | PROVIDERS: PCP Internal Medicine; Referring Provider Internal Medicine; Visit Provider Nurse Practitioner Family | DX: R07.89 Other chest pain (principal); R06.02 Shortness of breath; I10 Essential (primary) hypertension; E11.9 Type 2 diabetes mellitus without complications | CPT/HCPCS: 99212 ==

== ENCOUNTER 2022-12-12 14:43 | Emergency (ER) | payer MEDICAID, SELFPAY ==
--- NOTE | ~2022-12-12 | US_ITS ---
EXAMINATION: US ABDOMEN LIMITED CLINICAL INFORMATION: Right-sided pain, upper and lower. COMPARISON: None TECHNIQUE: Real-time imaging of the right upper quadrant abdominal viscera. FINDINGS: PANCREAS: Normal. LIVER: Normal. The liver is normal in size. The liver contour is normal. Parenchymal echogenicity is normal. No focal hepatic lesion. There is no intrahepatic biliary duct dilatation seen. GALLBLADDER: Normal. The gallbladder is physiologically distended without evidence of stones, sludge, polyps, wall thickening or pericholecystic fluid. COMMON BILE DUCT: Normal in caliber measuring 0.4 cm in diameter. RIGHT KIDNEY: There is a 1.3 cm cyst of the upper pole the right kidney. No hydronephrosis. No renal calculi or solid parenchymal lesions. The kidney measures 10.5 cm in maximum dimension. FREE FLUID: None. US/US abdomen limited IMPRESSION: No acute findings.
[2022-12-12 14:57] VITALS: BP 133/81; PULSE 112; RESP 18; TEMP 36.2; O2SAT 99; BMI 29.0
--- NOTE | 2022-12-12 14:59 | ED_ITS ---
HPI - Abdominal Pain General Chief Complaint: Abdominal Pain <Ayanna Hankins CNP - Last Filed: 12/12/22 15:06> Stated Complaint: r side pain <Ayanna Hankins CNP - Last Filed: 12/12/22 15:06> Time Seen by Provider: 12/12/22 16:02 <Ayanna Hankins CNP - Last Filed: 12/12/22 15:06> Source: patient <MATTEO Anthony - Last Filed: 12/12/22 21:25> Mode of arrival: ambulatory <MATTEO Anthony Last Filed: 12/12/22 21:25> Limitations: no limitations <MATTEO Anthony Last Filed: 12/12/22 21:25> History of Present Illness HPI narrative: Patient is a 57 year old assigned female at with a history of HTN and DM presenting to the emergency department today with right sided flank pain. Patient states that the pain has been intermittent for the last few days. Patient states that the pain increases with bending over. Patient denies any dizziness, lightheadedness, nausea, vomiting, fever, chills, blurry vision, double vision, loss of vision, chest pain, difficulty breathing, shortness of breath, back pain, night sweats, pain with urination, increased urinary frequency, increased urinary urgency, blood in her urine or stool, syncope or a near syncopal episode, recent trauma or falls, bowel incontinence, bladder inc ontinence, bowel retention, bladder retention, or any other complaints at this time. <MATTEO Anthony - Last Filed: 12/12/22 21:25> MD elicited complaint: abdominal pain and flank pain <MATTEO Anthony Last Filed: 12/12/22 21:25> Pertinent past history: none <MATTEO Anthony Last Filed: 12/12/22 21:25> Onset (ago): day(s) <MATTEO Anthony Last Filed: 12/12/22 21:25> Pain Consistency: intermittent <MATTEO Anthony Last Filed: 12/12/22 21:25> Location: R flank <MATTEO Anthony Last Filed: 12/12/22 21:25> Severity: mild <MATTEO Anthony - Last Filed: 12/12/22 21:25> Pain scale (0-10): 4 <MATTEO Anthony - Last Filed: 12/12/22 21:25> Quality: dull <MATTEO Anthony - Last Filed: 12/12/22 21:25> Radiation: none <MATTEO Anthony - Last Filed: 12/12/22 21:25> Exacerbating factors: nothing <MATTEO Anthony - Last Filed: 12/12/22 21:25> Relieving factors: nothing <MATTEO Anthony - Last Filed: 12/12/22 21:25> Associated symptoms: denies other symptoms <MATTEO Anthony - Last Filed: 12/12/22 21:25> Related Data Home Medications: Home Medications Medication Instructions Recorded Confirmed cholecalciferol (vitamin D3) 25 25 mcg PO DAILY 09/12/20 11/19/22 mcg (1,000 unit) capsule famotidine 20 mg tablet 20 mg PO BID 09/12/20 11/19/22 losartan 50 mg tablet 50 mg PO DAILY 09/12/20 11/19/22 naproxen 375 mg tablet 375 mg PO BID PRN Pain 09/12/20 11/19/22 simethicone 125 mg capsule (Gas 125 mg PO TID-QID PRN Heartburn 09/12/20 11/19/22 Relief (simethicone)) sumatriptan succinate 50 mg tablet See Rx Instructions PO .COMPLEX 09/12/20 11/19/22 (Imitrex) PRN Migraine Headache tramadol 50 mg tablet 50 mg PO Q8H PRN Pain 09/12/20 11/19/22 albuterol sulfate 90 mcg/actuation 2 puff inhalation Q4H PRN 08/21/22 11/19/22 aerosol inhaler (ProAir HFA) dapagliflozin 5 mg tablet (Farxiga) 5 mg PO QAM 08/21/22 11/19/22 glipizide 10 mg tablet 10 mg PO DAILY 08/21/22 11/19/22 metformin 1,000 mg tablet 1,000 mg PO BID 08/21/22 11/19/22 omeprazole 20 mg capsule,delayed 20 mg PO DAILY 08/21/22 11/19/22 release Previous Rx's Medication Instructions Recorded cephalexin 500 mg capsule 500 mg PO QID 7 days #28 caps 05/20/21 colchicine 0.6 mg tablet (Colcrys) See Rx Instructions .Route 05/20/21 .COMPLEX #6 tabs benzonatate 100 mg capsule 100 mg PO BID PRN cough 7 days #14 09/05/22 caps doxycycline hyclate 100 mg tablet 100 mg PO BID 7 days #14 tabs 09/05/22 prednisone 20 mg tablet 20 mg PO DAILY 12 days #26 tabs 09/05/22 cephalexin 500 mg capsule 500 mg PO Q6H 7 days #28 caps 12/12/22 <Ayanna Hankins CNP - Last Filed: 12/12/22 15:06> Allergies/Adverse Reactions: Allergies Allergy/AdvReac Type Severity Reaction Status Date / Time No Known Allergies Allergy Verified 12/12/22 15:03 [No Known Allergies*] <Ayanna Hankins CNP - Last Filed: 12/12/22 15:06> Review of Systems Constitutional: Reports no additional constitutional complaints, Denies chills, Denies fever(s) and Denies night sweats <MATTEO Anthony - Last Filed: 12/12/22 21:25> Eyes: Reports no additional eye complaints, Denies blurry vision, Denies change in vision, Denies diplopia, Denies eye discharge, Denies loss of vision and Denies eye pain <MATTEO Anthony - Last Filed: 12/12/22 21:25> Denies dizziness <MATTEO Anthony - Last Filed: 12/12/22 21:25> Cardiovascular: Reports no additional cardiovascular complaints, Denies chest pain, Denies lightheadedness, Denies Loss of Consciousness and Denies dyspnea <MATTEO Anthony - Last Filed: 12/12/22 21:25> Respiratory: Reports no additional respiratory complaints and Denies dyspnea <MATTEO Anthony - Last Filed: 12/12/22 21:25> Gastrointestinal: Reports no additional gastrointestinal complaints, Reports abdominal pain, Denies melena, Denies hematochezia, Denies change in bowel habits and Denies change in stool character <MATTEO Anthony Last Filed: 12/12/22 21:25> Genitourinary: Denies hematuria, Denies urinary frequency, Denies dysuria, Denies urinary incontinence, Denies urinary hesitancy and Denies urinary urgency <MATTEO Anthony - Last Filed: 12/12/22 21:25> Musculoskeletal: Reports no additional musculoskeletal complaints, Denies numbness and Denies tingling <MATTEO Anthony - Last Filed: 12/12/22 21:25> Denies dizziness, Denies loss of vision, Denies numbness and Denies tin gling <MATTEO Anthony - Last Filed: 12/12/22 21:25> Psychiatric: Reports no additional psychiatric complaints <MATTEO Anthony - Last Filed: 12/12/22 21:25> Endocrine: Reports no additional endocrine complaints <MATTEO Anthony - Last Filed: 12/12/22 21:25> Hematologic/Lymphatic: Reports no additional hematologic/lymphatic complaints <MATTEO Anthony - Last Filed: 12/12/22 21:25> Allergic/Immunologic: Reports no additional allergic/immunologic complaints <MATTEO Anthony - Last Filed: 12/12/22 21:25> PMFSH Past Medical History Attestation statement: The following information was validated with the patient. <MATTEO Anthony - Last Filed: 12/12/22 21:25> Source: old records reviewed and nursing notes reviewed <MATTEO Anthony - Last Filed: 12/12/22 21:25> Medical History: Medical History Asthma Diabetes mellitus Encounter for screening for malignant neoplasm of colon Gouty arthritis of left great toe HTN (hypertension) Migraine headache Right knee pain <Ayanna Hankins CNP - Last Filed: 12/12/22 15:06> Surgical History: Surgical History Hx of colonoscopy No significant past surgical history <Ayanna Hankins CNP - Last Filed: 12/12/22 15:06> Family History Family History: Family History Father No problems noted. Mother No problems noted. 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 <Ayanna Hankins CNP - Last Filed: 12/12/22 15:06> Physical Exam ED Vital Signs: Vital Signs - 24 hr 12/12/22 14:57 12/12/22 16:00 Temperature 97.2 F 97.6 F Pulse Rate 112 H 99 Respiratory Rate 18 16 Blood Pressure 133/81 119/69 Pulse Oximetry 99 98 Oxygen Delivery Method Room Air Room Air BMI result Body Mass Index 29.0 <Ayanna Hankins CNP - Last Filed: 12/12/22 15:06> Vital Signs - 24 hr 12/12/22 14:57 12/12/22 16:00 Temperature 97.2 F 97.6 F Pulse Rate 112 H 99 Respiratory Rate 18 16 Blood Pressure 133/81 119/69 Pulse Oximetry 99 98 Oxygen Delivery Method Room Air Room Air BMI result Body Mass Index 29.0 <MATTEO Anthony - Last Filed: 12/12/22 21:25> Const General: cooperative, no acute distress, alert and awake <MATTEO Anthony - Last Filed: 12/12/22 21:25> Nutritional Appearance: well nourished <MATTEO Anthony - Last Filed: 12/12/22 21:25> Orientation/consciousness: patient oriented x3 <MATTEO Anthony - Last Filed: 12/12/22 21:25> Limitations: no limitations <MATTEO Anthony - Last Filed: 12/12/22 21:25> HENMT Head: Yes normal to inspection and Yes atraumatic <MATTEO Anthony Last Filed: 12/12/22 21:25> Ears: hearing grossly normal bilaterally and external ears normal <MATTEO Anthony Last Filed: 12/12/22 21:25> General nose exam: Normal external nose present, no nasal discharge noted and no epistaxis <MATTEO Anthony - Last Filed: 12/12/22 21:25> Face and sinus: Yes normal facial exam, No abrasion and No laceration <Britta Hanks PA - Last Filed: 12/12/22 21:25> Mouth: Normal oral and palatal mucosa present, no drooling and no muffled voice <Britta Hanks PA - Last Filed: 12/12/22 21:25> Eyes General: appearance normal, both eyes and all related structures <Britta Hanks PA - Last Filed: 12/12/22 21:25> Periorbital: periorbital findings normal <MATTEO Anthony - Last Filed: 12/12/22 21:25> Eyelids: Yes eyelids normal <Britta Hanks PA - Last Filed: 12/12/22 21:25> Conjunctivae: conjunctivae normal <Britta Hanks PA - Last Filed: 12/12/22 21:25> Pupils: Equal, round and reactive pupils present <Britta Hanks PA - Last Filed: 12/12/22 21:25> EOM: EOMs intact bilaterally <Britta Hanks PA - Last Filed: 12/12/22 21:25> Neck Neck: Yes normal visual inspection, Yes full ROM and Yes no lymphadenopathy <Britta Hanks PA - Last Filed: 12/12/22 21:25> Chest Chest palpation & inspection: normal inspection of the chest <Britta Hanks PA - Last Filed: 12/12/22 21:25> Resp Effort & Inspection: normal respiratory effort and able to speak in complete sentences <Birtta Hanks PA - Last Filed: 12/12/22 21:25> Auscultation: clear to auscultation bilaterally <MATTEO Anthony - Last Filed: 12/12/22 21:25> Cardio Rate: regular rate <MATTEO Anthony - Last Filed: 12/12/22 21:25> Rhythm: regular rhythm <MATTEO Anthony - Last Filed: 12/12/22 21:25> GI Inspection: Yes normal to inspection <Britta Hanks PA - Last Filed: 12/12/22 21:25> Palpation (GI): Soft to palpation, not firm, nontender and no guarding <Britta Huynhchary PA - Last Filed: 12/12/22 21:25> General: Yes no CVA tenderness <Britta Hanks PA - Last Filed: 12/12/22 21:25> Back/Spine/Pelvis Back: no CVA tenderness <Britta Hanks PA - Last Filed: 12/12/22 21:25> Neuro General: patient oriented x3 and moves all extremities <Britta Hanks PA - Last Filed: 12/12/22 21:25> Cranial nerves: Yes Equal, round and reactive pupils present <Britta Hanks PA - Last Filed: 12/12/22 21:25> Cognition (Neuro): normal cognition <Britta Huynhchary PA - Last Filed: 12/12/22 21:25> Motor exam (neuro): 5/5 motor strength present throughout <Britta Huynhchary PA - Last Filed: 12/12/22 21:25> Sensory Exam: Normal double simultaneous stimulation for sensation <Britta Huynhchary PA - Last Filed: 12/12/22 21:25> Coordination: [id number] test normal <Britta Huynhchary PA - Last Filed: 12/12/22 21:25> Extrem General: Yes normal to inspection, Yes full ROM and Yes capillary refill normal <Britta Huynhchary PA - Last Filed: 12/12/22 21:25> Psych Appearance: grossly normal <Britta Huynhchary PA - Last Filed: 12/12/22 21:25> Mental Status: mental status grossly normal <Britta Huynhchary PA - Last Filed: 12/12/22 21:25> Affect: normal affect <Britta MATTEO Hanks - Last Filed: 12/12/22 21:25> Attitude: cooperative <MATTEO Anthony - Last Filed: 12/12/22 21:25> Thought process: Normal thought process present <Britta MATTEO Hanks - Last Filed: 12/12/22 21:25> Thought content: Normal thought content present <MATTEO Anthony - Last Filed: 12/12/22 21:25> Insight: Good insight present (Psych) <MATTEO Anthony - Last Filed: 12/12/22 21:25> Course Course Course Narrative: This is an RME: Additional HPI, ROS, PE not included below will be deferred to primary provider. Patient is a 57-year-old female presents emergency department for evaluation of right-sided abdominal/flank pain. Described as a bothering pain, intermitently. At times it is made worse with position changes such as bending forward. Onset of symptoms 2-3 days ago. Denies associated nausea, vomiting, diarrhea, constipation, dysuria, urinary frequency hematuria. Denies history of similar pain in the past. Denies chest, or shortness of breath. RUQ tenderness upon palpation Plan: labs, urinalysis, US <Ayanna Hankins CNP - Last Filed: 12/12/22 15:06> Medical Decision Making Medical Decision Making [facility] Narrative: Patient is a 57 year old assigned female at with a history of HTN and DM presenting to the emergency department today with right sided flank pain. Patient's physical exam was unremarkable. Patient's blood work was unremarkable. Patient's urine showed an acute urinary tract infection. Patient's abdominal US showed no acute process. I explained my physical exam findings as well as all test results to the patient. I answered all questions asked by the patient. I stressed the importance of the patient taking her medication as prescribed. I stressed the importance of the patient following up with her primary care provider. I stressed the importance of the patient returning to the emergency department immediately if her symptoms were to worsen or if she were to develop any dizziness, shortness of breath, difficulty breathing, chest pain, blurry vision, loss of vision, nausea, vomiting, abdominal pain, fever, chills, back pain, or any other complaints. Patient verbalized agreement and understanding with this treatment plan and discharge. <MATTEO Anthony - Last Filed: 12/12/22 21:25> Differential Diagnosis Differential Diagnoses: The differential diagnosis associated with the presentation includes <MATTEO Anthony - Last Filed: 12/12/22 21:25> flank pain, UTI <MATTEO Anthony - Last Filed: 12/12/22 21:25> Lab Data [facility] Lab Attestation statement: I reviewed the patient's lab results. <MATTEO Anthony - Last Filed: 12/12/22 21:25> Result Diagrams: 12/12/22 15:32 12/12/22 15:32 <Ayanna Hankins CNP - Last Filed: 12/12/22 15:06> Labs: Lab Results 12/12/22 12/12/22 12/12/22 Range/Units 15:29 15:32 15:32 WBC 7.8 (4.8-10.8) X10*3/uL RBC 4.28 (4.20-5.50) X10*6/uL Hgb 13.0 (12.0-16.0) g/dl Hct 39.0 (37.0-47.0) % MCV 91.1 (80.0-98.0) fL MCH 30.4 (27.0-33.0) pg MCHC 33.3 (31.0-35.0) g/dl RDW 13.2 (11.0-16.0) % Plt Count 349 (160-400) X10*3/uL MPV 9.5 (9.4-12.3) fL Immature Gran % (Auto) 0.3 (0.0-0.4) % Neut % (Auto) 57.7 (45-73) % Lymph % (Auto) 34.1 (20-40) % Williamson % (Auto) 6.4 (2-11) % Eos % (Auto) 1.0 (0-4) % Baso % (Auto) 0.5 (0-2) % Lymph # (Auto) 2.7 (1.2-4.9) X10*3/uL Williamson # (Auto) 0.5 (0.1-1.2) X10*3/uL Eos # (Auto) 0.1 (0.0-0.4) X10*3/uL Baso # (Auto) 0.0 (0.0-0.2) X10*3/uL Abs Immat Gran (auto) 0.02 (0.00-0.03) X10*3/uL Absolute Neuts (auto) 4.5 (2.0-8.3) x10*3/uL Absolute Nucleated RBC 0.000 (0.0-0.012) X10*3/uL Nucleated RBC % (auto) 0.0 (0.0-0.2) /100WBC Sodium 140 (135-145) mmol/L Potassium 3.6 (3.3-5.1) mmol/L Chloride 105 (96-108) mmol/L Carbon Dioxide 25 (22-29) mmol/L Anion Gap 14 (12-20) BUN 15 (9-16) mg/dL Creatinine 0.89 (0.5-1.4) mg/dL Estim Creat Clear Calc 64.1 Estimated GFR > 60 Random Glucose 245 H (60-115) mg/dL Calcium 9.5 (8.4-10.2) mg/dL Total Bilirubin 0.3 (0.0-1.0) mg/dL AST 16 (5-31) U/L ALT 13 (0-31) U/L Alkaline Phosphatase 96 (39-117) U/L Total Protein 7.5 (6.5-8.0) g/dL Albumin 4.2 (3.5-5.0) g/dL Lipase 18 (8-78) U/L Urine Color Yellow Urine Appearance Turbid Urine pH 5.0 (5.0-9.0) Ur Specific Laurier >= 1.030 H (1.005-1.025) Urine Protein Trace (Neg-Trace) mg/dL Urine Glucose (UA) 500 H (Negative) mg/dL Urine Ketones Trace (Negative) mg/dL Urine Blood Trace H (Negative) Urine Nitrite Negative (Negative) Ur Leukocyte Esterase Moderate (2+) H (Negative) Urine RBC 0-2 (0-2) /HPF Urine WBC >50 H (0-5) /HPF Ur Squamous Epith Cells >20 (0-2) /HPF Urine Bacteria 1+ (None Seen) Hyaline Casts 0-2 (0-2) /LPF <Ayanna Hankins CNP - Last Filed: 12/12/22 15:06> Lab Results 12/12/22 12/12/22 12/12/22 Range/Units 15:29 15:32 15:32 WBC 7.8 (4.8-10.8) X10*3/uL RBC 4.28 (4.20-5.50) X10*6/uL Hgb 13.0 (12.0-16.0) g/dl Hct 39.0 (37.0-47.0) % MCV 91.1 (80.0-98.0) fL MCH 30.4 (27.0-33.0) pg MCHC 33.3 (31.0-35.0) g/dl RDW 13.2 (11.0-16.0) % Plt Count 349 (160-400) X10*3/uL MPV 9.5 (9.4-12.3) fL Immature Gran % (Auto) 0.3 (0.0-0.4) % Neut % (Auto) 57.7 (45-73) % Lymph % (Auto) 34.1 (20-40) % Williamson % (Auto) 6.4 (2-11) % Eos % (Auto) 1.0 (0-4) % Baso % (Auto) 0.5 (0-2) % Lymph # (Auto) 2.7 (1.2-4.9) X10*3/uL Williamson # (Auto) 0.5 (0.1-1.2) X10*3/uL Eos # (Auto) 0.1 (0.0-0.4) X10*3/uL Baso # (Auto) 0.0 (0.0-0.2) X10*3/uL Abs Immat Gran (auto) 0.02 (0.00-0.03) X10*3/uL Absolute Neuts (auto) 4.5 (2.0-8.3) x10*3/uL Absolute Nucleated RBC 0.000 (0.0-0.012) X10*3/uL Nucleated RBC % (auto) 0.0 (0.0-0.2) /100WBC Sodium 140 (135-145) mmol/L Potassium 3.6 (3.3-5.1) mmol/L Chloride 105 (96-108) mmol/L Carbon Dioxide 25 (22-29) mmol/L Anion Gap 14 (12-20) BUN 15 (9-16) mg/dL Creatinine 0.89 (0.5-1.4) mg/dL Estim Creat Clear Calc 64.1 Estimated GFR > 60 Random Glucose 245 H (60-115) mg/dL Calcium 9.5 (8.4-10.2) mg/dL Total Bilirubin 0.3 (0.0-1.0) mg/dL AST 16 (5-31) U/L ALT 13 (0-31) U/L Alkaline Phosphatase 96 (39-117) U/L Total Protein 7.5 (6.5-8.0) g/dL Albumin 4.2 (3.5-5.0) g/dL Lipase 18 (8-78) U/L Urine Color Yellow Urine Appearance Turbid Urine pH 5.0 (5.0-9.0) Ur Specific Laurier >= 1.030 H (1.005-1.025) Urine Protein Trace (Neg-Trace) mg/dL Urine Glucose (UA) 500 H (Negative) mg/dL Urine Ketones Trace (Negative) mg/dL Urine Blood Trace H (Negative) Urine Nitrite Negative (Negative) Ur Leukocyte Esterase Moderate (2+) H (Negative) Urine RBC 0-2 (0-2) /HPF Urine WBC >50 H (0-5) /HPF Ur Squamous Epith Cells >20 (0-2) /HPF Urine Bacteria 1+ (None Seen) Hyaline Casts 0-2 (0-2) /LPF <MATTEO Anthony - Last Filed: 12/12/22 21:25> Radiology Impression Discussion of test interpretation with radiology: I have reviewed the radiologist's reading. <MATTEO Anthony - Last Filed: 12/12/22 21:25> Radiologist Impression: My interpretation is in agreement with the radiologist's impression of this imaging study. EXAMINATION: US ABDOMEN LIMITED CLINICAL INFORMATION: Right-sided pain, upper and lower. COMPARISON: None TECHNIQUE: Real-time imaging of the right upper quadrant abdominal viscera. FINDINGS: PANCREAS: Normal. LIVER: Normal. The liver is normal in size. The liver contour is normal. Parenchymal echogenicity is normal. No focal hepatic lesion. There is no intrahepatic biliary duct dilatation seen. GALLBLADDER: Normal. The gallbladder is physiologically distended without evidence of stones, sludge, polyps, wall thickening or pericholecystic fluid. COMMON BILE DUCT: Normal in caliber measuring 0.4 cm in diameter. RIGHT KIDNEY: There is a 1.3 cm cyst of the upper pole the right kidney. No hydronephrosis. No renal calculi or solid parenchymal lesions. The kidney measures 10.5 cm in maximum dimension. FREE FLUID: None. US/US abdomen limited IMPRESSION: No acute findings. Dictated By: Rafiq Oro MD Signed By: Electronically signed by Rafiq Oro MD 12/12/22 0887 <MATTEO Anthony - Last Filed: 12/12/22 21:25> Medications Administered Discontinued Medications Generic Name Dose Route Start Last Admin Trade Name Freq PRN Reason Stop Dose Admin Ketorolac Tromethamine 15 mg 12/12/22 16:21 12/12/22 16:41 Ketorolac Tromethamine 15 Mg/Ml Vial IM 12/12/22 16:22 15 mg ONCE ONE Administration <Ayanna Hankins CNP - Last Filed: 12/12/22 15:06> Medications Administered Discontinued Medications Generic Name Dose Route Start Last Admin Trade Name Freq PRN Reason Stop Dose Admin Ketorolac Tromethamine 15 mg 12/12/22 16:21 12/12/22 16:41 Ketorolac Tromethamine 15 Mg/Ml Vial IM 12/12/22 16:22 15 mg ONCE ONE Administration <MATTEO Anthony - Last Filed: 12/12/22 21:25> Discharge Plan Discharge Clinical Impression: Urinary tract infection <Ayanna Hankins CNP - Last Filed: 12/12/22 15:06> Patient Disposition: Home, Self-Care <Ayanna Hankins CNP - Last Filed: 12/12/22 15:06> Additional Instructions: Follow up with your primary care provider. Return to the emergency department immediately if your symptoms worsen or if you develop any dizziness, shortness of breath, difficulty breathing, chest pain, blurry vision, loss of vision, nausea, vomiting, abdominal pain, fever, chills, back pain, or any other complaints. Roxy un seguimiento con rothman proveedor de atenci?n primaria. Regrese a la rosangela de emergencias de inmediato si dion s?ntomas empeoran o si presenta mareos, dificultad para respirar, dolor de pecho, visi?n borrosa, p?rdida de la visi?n, n?useas, v?mitos, dolor abdominal, fiebre, escalofr?os, dolor de espalda o cualquier otras quejas. <Ayanna Hankins, [facility] - Last Filed: 12/12/22 15:06> Prescriptions: New cephalexin 500 mg capsule 500 mg PO Q6H 7 Days Qty: 28 0RF No Action colchicine [Colcrys] 0.6 mg tablet See Rx Instructions .ROUTE .COMPLEX Qty: 6 0RF Rx Instructions: take 2 pills ( 1.2 mg) and 1 hour later take 1 pill ( 0.6 mg ). May repeat in 3 days if still symptomatic. cephalexin 500 mg capsule 500 mg PO QID 7 Days Qty: 28 0RF benzonatate 100 mg capsule 100 mg PO BID PRN (Reason: cough) 7 Days Qty: 14 0RF prednisone 20 mg tablet 20 mg PO DAILY 12 Days Qty: 26 0RF Rx Instructions: Take 3 tablets for 5 days THEN; Take 2 tablets for 4 days THEN; Take 1 tablet for 3 days doxycycline hyclate 100 mg tablet 100 mg PO BID 7 Days Qty: 14 0RF simethicone [Gas Relief (simethicone)] 125 mg capsule 125 mg PO TID-QID PRN (Reason: Heartburn) tramadol 50 mg tablet 50 mg PO Q8H PRN (Reason: Pain) famotidine 20 mg tablet 20 mg PO BID naproxen 375 mg tablet 375 mg PO BID PRN (Reason: Pain) Hold Instructions: Resume on 12/06/20. post polypectomy sumatriptan succinate [Imitrex] 50 mg tablet See Rx Instructions PO .COMPLEX PRN (Reason: Migraine Headache) Rx Instructions: take 1 tab at onset of headache; if no relief may repeat 1 tab after at least 2 hrs; max = 4 tabs/24 hr PO losartan 50 mg tablet 50 mg PO DAILY cholecalciferol (vitamin D3) 25 mcg (1,000 unit) capsule 25 mcg PO DAILY albuterol sulfate [ProAir HFA] 90 mcg/actuation HFA aerosol inhaler 2 puff inhalation Q4H PRN metformin 1,000 mg tablet 1,000 mg PO BID glipizide 10 mg tablet 10 mg PO DAILY omeprazole 20 mg capsule,delayed release(DR/EC) 20 mg PO DAILY Farxiga 5 mg tablet 5 mg PO QAM <Ayanna Hankins CNP - Last Filed: 12/12/22 15:06> Referrals: Brianna Matt MD [Primary Care Provider] - <Ayanna Hankins CNP - Last Filed: 12/12/22 15:06> Stand Alone Forms: Work/School Release <Ayanna Hankins CNP - Last Filed: 12/12/22 15:06> Interventions: ED Discharge Assessment Last Done: 12/12/22 17:09 <Ayanna Hankins CNP - Last Filed: 12/12/22 15:06> Discharge Date/Time: 12/12/22 17:09 <Ayanna Hankins CNP - Last Filed: 12/12/22 15:06> Print Language: Hungarian <Ayanna Hankins CNP - Last Filed: 12/12/22 15:06>
[2022-12-12 15:36] LABS: MANUAL DIFF FLAG NO
[2022-12-12 15:44] LABS: Appearance Urine Turbid; Color Urine Yellow; Glucose Urine UA 500 mg/dL (Negative); Leukocyte Esterase Urine Moderate (2+) (Negative); Nitrite Urine Negative (Negative); Specific Gravity - Urine >= 1.030 (1.005-1.025); UMIC TRIGGER UACC YES; Urine Blood Trace (Negative); Urine Ketones Trace mg/dL (Negative); Urine Protein Trace mg/dL (Neg-Trace)
[2022-12-12 15:47] LABS: Bacteria Urine 1+ (None Seen); Hyaline Casts Urine 0-2 /LPF (0-2); RBC Urine 0-2 /HPF (0-2); Squamous Epithelial Cell Urine >20 /HPF (0-2); UACC Culture Trigger YES; WBC Urine >50 /HPF (0-5)
[2022-12-12 15:50] LABS: Basophils Percent Auto 0.5 % (0-2); Eosinophils Absolute Auto 0.1 X10*3/uL (0.0-0.4); Imm Gran Abs Auto 0.02 X10*3/uL (0.00-0.03); Imm Gran Pct Auto 0.3 % (0.0-0.4); Lymphocytes Absolute Auto 2.7 X10*3/uL (1.2-4.9); Lymphocytes Percent Auto 34.1 % (20-40); Mean Corpuscular HGB Conc 33.3 g/dl (31.0-35.0); Mean Corpuscular Hemoglobin 30.4 pg (27.0-33.0); Mean Corpuscular Volume 91.1 fL (80.0-98.0); Mean Platelet Volume 9.5 fL (9.4-12.3); Monocytes Absolute Auto 0.5 X10*3/uL (0.1-1.2); Monocytes Percent Auto 6.4 % (2-11); Neutrophils Absolute Auto 4.5 x10*3/uL (2.0-8.3); Neutrophils Percent Auto 57.7 % (45-73); Platelet Count 349 X10*3/uL (160-400); Red Blood Count 4.28 X10*6/uL (4.20-5.50); Red Cell Distribution Width 13.2 % (11.0-16.0); White Blood Count 7.8 X10*3/uL (4.8-10.8)
[2022-12-12 15:56] LABS: Alanine Aminotransferase 13 U/L (0-31); Albumin Level 4.2 g/dL (3.5-5.0); Alkaline Phosphatase 96 U/L (39-117); Anion Gap 14 (12-20); Aspartate Amino Transferase 16 U/L (5-31); Bilirubin Total 0.3 mg/dL (0.0-1.0); Blood Urea Nitrogen 15 mg/dL (9-16); Calcium 9.5 mg/dL (8.4-10.2); Carbon Dioxide 25 mmol/L (22-29); Chloride 105 mmol/L (96-108); Creatinine Clr Calc Pharmacy 64.1; Estimated Glomerular Filt Rate > 60; Glucose Random 245 mg/dL (60-115); Lipase 18 U/L (8-78); Potassium 3.6 mmol/L (3.3-5.1); Sodium 140 mmol/L (135-145); Total Protein 7.5 g/dL (6.5-8.0)
[2022-12-12 16:00] VITALS: BP 119/69; PULSE 99; RESP 16; TEMP 36.4; O2SAT 98
[2022-12-12] MEDS: Ketorolac Tromethamine 15 MG/ML VIAL IM (16:41)
== END 2022-12-12 17:09 | disposition home or self-care (01) ==
PROVIDERS: Nurse Practitioner Family; Emergency Provider Emergency Medicine; PCP Internal Medicine
DX: N39.0 Urinary tract infection, site not specified (principal); R10.31 Right lower quadrant pain; R10.11 Right upper quadrant pain; I10 Essential (primary) hypertension; E11.9 Type 2 diabetes mellitus without complications
CPT/HCPCS: 36415; 76705; 80053; 81001; 83690; 85025; 87086; 87147; 96372; 99283; 99284; J1885

== ENCOUNTER → 2023-01-01 10:51 | Outpatient (REF) | payer MEDICAID, SELFPAY ==
--- NOTE | 2023-01-01 11:15 | CA_ITS ---
Acquisition Time: 2023-01-01 11:16:51 Total Exercise Time: 00:08:30 Test Indications: CP, SOB Medications: SEE H Protocol: CELESTINO Max HR: 162 BPM 98% of Pred: 165 BPM Max BP: 158/084 mmHG Max Work Load: 10.1 METS Exercise stress test with exercise 8 min 30 sec of Celestino protocol, achieving 98% MPHR, denies shortness of breath or chest discomfort, with isolated PAC, one PVC, with normotensive response to exercise, without EKG changes meeting criteria for ischemia. Echo images obtained by tech at rest and immediately post peak exercise. Definity contrast used. Test reviewed with Dr Lamar Referred By: Thuy Gan Overread By: THUY GAN
== END ==
LOC: HO.CARD 10:51
PROVIDERS: PCP Internal Medicine; Visit Provider Nurse Practitioner Family
DX: R07.89 Other chest pain (principal); R06.02 Shortness of breath
CPT/HCPCS: 93350; Q9957

== ENCOUNTER 2023-01-29 08:12 | Outpatient (REF) | payer MEDICAID, SELFPAY ==
--- NOTE | ~2023-01-29 | CT_ITS ---
EXAMINATION: CT ABDOMEN AND PELVIS WITH CONTRAST CLINICAL INFORMATION: Right lower quadrant pain. COMPARISON: Abdominal ultrasound 12/12/2022. TECHNIQUE: Multidetector volumetric images were obtained from the superior aspect of the liver through the pubic symphysis following administration 85 mL of Omnipaque 350 intravenous contrast. Sagittal and coronal reformatted images were obtained on the technologist's workstation. Oral contrast: Yes This CT examination was performed using dose optimization techniques as appropriate, variously including the following: *Automated exposure control *Adjustment of mA and/or kV according to patient size (this includes techniques or standardized protocols for targeted exams where dose is matched to indication/reason for exam; i.e. extremities or head) *Use of iterative reconstruction technique DLP: 360 mGy-cm FINDINGS: LUNG BASES: The visualized lung bases are unremarkable. LIVER, GALLBLADDER, AND BILIARY TREE: The liver is normal in size, shape, and attenuation. No focal hepatic lesion or biliary ductal dilatation is present. The gallbladder is unremarkable with no evidence of radiopaque gallstones, gallbladder wall thickening, or obvious pericholecystic inflammatory changes. PANCREAS: No discrete pancreatic mass. No ductal dilatation or focal parenchymal atrophy. SPLEEN: Normal. ADRENAL GLANDS: No adrenal mass. KIDNEYS AND URETERS: Small simple cysts in the upper right and lower left kidney. No imaging follow-up is recommended. No nephrolithiasis or hydroureteronephrosis. BLADDER: Unremarkable. GASTROINTESTINAL TRACT: Small bowel is normal in caliber. The cecum and appendix are in the right upper quadrant. The appendix is normal in caliber measuring 6 mm in diameter. There is no inflammatory stranding around the appendix. ABDOMINAL WALL: No significant hernia is appreciated. LYMPH NODES: No enlarged lymph nodes. VASCULAR: No aortic aneurysm. Minimal atherosclerotic disease. PELVIC VISCERA: The uterus and adnexa are unremarkable. OSSEOUS STRUCTURES: No suspicious osseous lesions. CT/CT abdomen pelvis w IV con IMPRESSION: The appendix is top normal in caliber measuring 6 mm in diameter without inflammatory stranding. The appendix is located in the right upper quadrant so likely would not account for the reported right lower quadrant abdominal pain. No CT findings to correlate with right lower quadrant abdominal pain. Fleischner guidelines were followed.
[2023-01-29] MEDS: Barium Sulfate Oral (Mocha) 450 ML ORAL.SUSP 900 ML PO (10:49)
[2023-01-29] MEDS: iohexoL 350 MG/ML 100 ML INFUS..BTL 85 ML IV (10:49)
[2023-01-30 09:03] LABS: Creatinine POC 0.5 mg/dL (0.5-1.4); GFR POC > 60
== END 2023-01-29 08:13 | disposition home or self-care (01) ==
LOC: HO.CT 08:12
PROVIDERS: Visit Provider Family Medicine
DX: R10.31 Right lower quadrant pain (principal)
CPT/HCPCS: 74177; 82565; Q9967

== ENCOUNTER 2023-04-04 16:05 | Emergency (ER) | payer MEDICAID, SELFPAY ==
--- NOTE | ~2023-04-04 | XR_ITS ---
EXAMINATION: XR HAND, RIGHT CLINICAL INFORMATION: Pain COMPARISON: None available. TECHNIQUE: PA, lateral, and oblique views of the right hand. FINDINGS: Mild degenerative changes are seen at the DIP joints as well as at the first MCP joint. Some minimal degenerative changes are seen at the base of the thumb at the NURSING HOME joint. There is a large accessory ossicle or possibly dystrophic area of calcification/ossification present just medial to the second NURSING HOME joint. No acute fractures or bony destruction. XR/XR hand RT min 3V IMPRESSION: Mild degenerative changes as described above. No acute fracture or bony destruction.
[2023-04-04 16:10] VITALS: BP 141/76; PULSE 120; RESP 18; TEMP 36.4; O2SAT 98; BMI 31.2
--- NOTE | 2023-04-04 16:12 | ED.GENADULT ---
HPI - General Adult General Chief complaint: Extremity Problem Stated complaint: Right hand swollen Time Seen by Provider: 04/04/23 16:28 Source: patient Mode of arrival: ambulatory Limitations: no limitations History of Present Illness HPI narrative: 57-year-old female with history of hypertension, ecw-lunctnn-tcpxnract diabetes, unsfp-wqmm-wuksyogs here with complaints of waking with right hand pain and swelling. Patient denies any known injury or trauma. Patient denies any fevers, numbness, tingling, weakness of the extremity. Related Data Home Medications Medication Instructions Recorded Confirmed cholecalciferol (vitamin D3) 25 25 mcg PO DAILY 09/12/20 11/19/22 mcg (1,000 unit) capsule famotidine 20 mg tablet 20 mg PO BID 09/12/20 11/19/22 losartan 50 mg tablet 50 mg PO DAILY 09/12/20 11/19/22 naproxen 375 mg tablet 375 mg PO BID PRN Pain 09/12/20 11/19/22 simethicone 125 mg capsule (Gas 125 mg PO TID-QID PRN Heartburn 09/12/20 11/19/22 Relief (simethicone)) sumatriptan succinate 50 mg tablet See Rx Instructions PO .COMPLEX 09/12/20 11/19/22 (Imitrex) PRN Migraine Headache tramadol 50 mg tablet 50 mg PO Q8H PRN Pain 09/12/20 11/19/22 albuterol sulfate 90 mcg/actuation 2 puff inhalation Q4H PRN 08/21/22 11/19/22 aerosol inhaler (ProAir HFA) dapagliflozin 5 mg tablet (Farxiga) 5 mg PO QAM 08/21/22 11/19/22 glipizide 10 mg tablet 10 mg PO DAILY 08/21/22 11/19/22 metformin 1,000 mg tablet 1,000 mg PO BID 08/21/22 11/19/22 omeprazole 20 mg capsule,delayed 20 mg PO DAILY 08/21/22 11/19/22 release Previous Rx's Medication Instructions Recorded cephalexin 500 mg capsule 500 mg PO QID 7 days #28 caps 05/20/21 colchicine 0.6 mg tablet (Colcrys) See Rx Instructions .Route 05/20/21 .COMPLEX #6 tabs benzonatate 100 mg capsule 100 mg PO BID PRN cough 7 days #14 09/05/22 caps doxycycline hyclate 100 mg tablet 100 mg PO BID 7 days #14 tabs 09/05/22 prednisone 20 mg tablet 20 mg PO DAILY 12 days #26 tabs 09/05/22 cephalexin 500 mg capsule 500 mg PO Q6H 7 days #28 caps 12/12/22 cephalexin 500 mg capsule 500 mg PO TID #21 caps 04/04/23 doxycycline monohydrate 100 mg 100 mg PO BID #14 caps 04/04/23 capsule Allergies Allergy/AdvReac Type Severity Reaction Status Date / Time No Known Allergies Allergy Verified 04/04/23 16:13 [No Known Allergies*] Review of Systems Review of Systems: Yes all other systems are reviewed and are negative Constitutional: Constitutional: Reports no additional constitutional complaints, Denies body ache(s), Denies chills, Denies fever(s), Denies headache(s) and Denies weakness Eyes: Eyes: Reports no additional eye complaints and Denies change in vision ENT: Reports system reviewed and no additional complaints, except as documented, Denies dizziness, Denies headache(s), Denies nasal congestion, Denies nasal discharge and Denies neck pain Cardiovascular: Cardiovascular: Reports no additional cardiovascular complaints, Denies chest pain, Denies leg edema and Denies dyspnea Respiratory: Respiratory: Reports no additional respiratory complaints, Denies cough and Denies dyspnea Gastrointestinal: Gastrointestinal: Reports no additional gastrointestinal complaints, Denies abdominal pain, Denies diarrhea, Denies nausea and Denies vomiting Genitourinary: Genitourinary: Reports no additional female genitourinary complaints and Denies urinary incontinence Musculoskeletal: Musculoskeletal: Reports no additional musculoskeletal complaints, Denies back pain, Reports arthralgias, Reports joint swelling, Reports limited range of motion, Denies neck pain, Denies numbness and Denies tingling Integumentary/Breasts: Skin/Breast: Reports system reviewed and no additional complaints, except as docu, Reports swelling, Reports erythema and Denies rash Neurologic: Reports system reviewed and no additional complaints, except as documented, Denies dizziness, Denies headache(s), Denies numbness, Denies tingling and Denies weakness PMFSH Past Medical History Attestation statement: The following information was validated with the patient. Source: old records reviewed and nursing notes reviewed Medical History Asthma Diabetes mellitus Encounter for screening for malignant neoplasm of colon Gouty arthritis of left great toe HTN (hypertension) Migraine headache Right knee pain Surgical History Hx of colonoscopy No significant past surgical history Family History Family History Father No problems noted. Mother No problems noted. 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 Physical Exam ED Vital Signs: Vital Signs - 24 hr 04/04/23 16:10 04/04/23 17:07 Temperature 97.5 F Pulse Rate 120 H 110 H Respiratory Rate 18 18 Blood Pressure 141/76 H 135/89 Pulse Oximetry 98 97 Oxygen Delivery Method Room Air Room Air BMI result Body Mass Index 31.2 Const General: cooperative, healthy appearing, comfortable and no acute distress Orientation/consciousness: patient oriented x3 Limitations: no limitations HENMT Head: Yes normal to inspection Ears: hearing grossly normal bilaterally Eyes General: appearance normal, both eyes and all related structures Pupils: Equal, round and reactive pupils present Neck Neck: Yes normal visual inspection Chest Chest palpation & inspection: normal inspection of the chest Resp Effort & Inspection: normal respiratory effort Cardio Peripheral pulses: Peripheral pulses 2+ throughout Neuro General: patient oriented x3 Cranial nerves: Yes Equal, round and reactive pupils present Cognition (Neuro): normal cognition Gait exam (Neuro): Normal gait present Extrem Other: There is slight streaking up the forearm. There is warmth on palpation. There is pain with flexion of 2nd and 3rd digits although patient is able to flex and extend passively and actively. Normal distal sensation Course Course Course Narrative: RME- 57 year old female presents with right hand pain since yesterday. Denies any specific injury. On exam there is significant edema to the right 2nd and 3rd MCP joints. X-ray ordered Medical Decision Making Medical Decision Making MDM Narrative: [age] year old female spfxe-[id number]-[id number] here with waking with right hand swelling, redness and pain with no known injury or trauma. Patient was some mild warmth on exam with swelling and streaking up the arm. Likely mild cellulitis. Low concern for tenosynovitis, necrotizing fasciitis, DVT, septic arthritis X-ray with no bony abnormality Patient nontoxic appearing, afebrile Will discharge home with antibiotics with recommendations for wound check in 48 hours. Patient should return for any worsening signs or symptoms Differential Diagnosis Differential Diagnoses: The differential diagnosis associated with the presentation includes see above Independent Interpretation I performed an independent interpretation of an: Plain X-Ray Interpretation: I independently reviewed the x-ray and agree with radiologist's report Radiology Impression Discussion of test interpretation with radiology: I have reviewed the radiologist's reading. Radiologist Impression: [address] [address] XRay Report Signed Patient: Nita Quintanilla MR#: [id number] : 1965 Acct:[id number] Age/Sex: 57 / F ADM Date: 04/04/23 Loc: .ED Attending Dr: Ordering Physician: Rayo Rios Date of Service: 04/04/23 Procedure(s): XR hand RT min 3V Accession Number(s): [id number] cc: Rayo Rios ~ EXAMINATION: XR HAND, RIGHT CLINICAL INFORMATION: Pain? COMPARISON: None available.? TECHNIQUE: PA, lateral, and oblique views of the right hand. FINDINGS: Mild degenerative changes are seen at the DIP joints as well as at the first MCP joint. Some minimal degenerative changes are seen at the base of the thumb at the NURSING HOME joint. There is a large accessory ossicle or possibly dystrophic area of calcification/ossification present just medial to the second NURSING HOME joint. No acute fractures or bony destruction. XR/XR hand RT min 3V IMPRESSION: Mild degenerative changes as described above. No acute fracture or bony destruction. ? Discharge Plan Discharge Clinical Impression: Cellulitis Patient Disposition: Home, Self-Care Instructions: Cellulitis (DC), Warm Compress or Soak (ED) Additional Instructions: Elevar la extremidad. [facility] Motrin o Tylenol para el dolor seg?n sea necesario. Descansa la mano en casa. Regreso el a las 11:00 para revisi?n de herida Elevate the extremity. Take Motrin or Tylenol for pain as needed. Rest the hand at home. Return Thursday at 11:00 for wound check Prescriptions: New cephalexin 500 mg capsule 500 mg PO TID Qty: 21 0RF doxycycline monohydrate 100 mg capsule 100 mg PO BID Qty: 14 0RF No Action colchicine [Colcrys] 0.6 mg tablet See Rx Instructions .ROUTE .COMPLEX Qty: 6 0RF Rx Instructions: take 2 pills ( 1.2 mg) and 1 hour later take 1 pill ( 0.6 mg ). May repeat in 3 days if still symptomatic. cephalexin 500 mg capsule 500 mg PO QID 7 Days Qty: 28 0RF benzonatate 100 mg capsule 100 mg PO BID PRN (Reason: cough) 7 Days Qty: 14 0RF prednisone 20 mg tablet 20 mg PO DAILY 12 Days Qty: 26 0RF Rx Instructions: Take 3 tablets for 5 days THEN; Take 2 tablets for 4 days THEN; Take 1 tablet for 3 days doxycycline hyclate 100 mg tablet 100 mg PO BID 7 Days Qty: 14 0RF cephalexin 500 mg capsule 500 mg PO Q6H 7 Days Qty: 28 0RF simethicone [Gas Relief (simethicone)] 125 mg capsule 125 mg PO TID-QID PRN (Reason: Heartburn) tramadol 50 mg tablet 50 mg PO Q8H PRN (Reason: Pain) famotidine 20 mg tablet 20 mg PO BID naproxen 375 mg tablet 375 mg PO BID PRN (Reason: Pain) Hold Instructions: Resume on 12/06/20. post polypectomy sumatriptan succinate [Imitrex] 50 mg tablet See Rx Instructions PO .COMPLEX PRN (Reason: Migraine Headache) Rx Instructions: take 1 tab at onset of headache; if no relief may repeat 1 tab after at least 2 hrs; max = 4 tabs/24 hr PO losartan 50 mg tablet 50 mg PO DAILY cholecalciferol (vitamin D3) 25 mcg (1,000 unit) capsule 25 mcg PO DAILY albuterol sulfate [ProAir HFA] 90 mcg/actuation HFA aerosol inhaler 2 puff inhalation Q4H PRN metformin 1,000 mg tablet 1,000 mg PO BID glipizide 10 mg tablet 10 mg PO DAILY omeprazole 20 mg capsule,delayed release(DR/EC) 20 mg PO DAILY Farxiga 5 mg tablet 5 mg PO QAM Referrals: [facility] [Primary Care Provider] - 1 week Stand Alone Forms: Work/School Release Interventions: ED Discharge Assessment Last Done: 04/04/23 17:11 Discharge Date/Time: 04/04/23 17:13 Print Language: Chinese
--- NOTE | 2023-04-04 17:06 | PC.NURSE ---
Patient presents for pain and swelling to the right hand. Area noted to be red and swollen on examination. Patient is otherwise well appearing.
[2023-04-04 17:07] VITALS: BP 135/89; PULSE 110; RESP 18; O2SAT 97
== END 2023-04-04 17:13 | disposition home or self-care (01) ==
PROVIDERS: Emergency Provider Emergency Medicine
DX: L03.113 Cellulitis of right upper limb (principal); M79.641 Pain in right hand; I10 Essential (primary) hypertension; E11.9 Type 2 diabetes mellitus without complications; Z79.899 Other long term (current) drug therapy; Z79.84 Long term (current) use of oral hypoglycemic drugs
CPT/HCPCS: 73130; 99283; 99284

== ENCOUNTER 2023-04-09 10:41 | Emergency (ER) | payer MEDICAID, SELFPAY ==
--- NOTE | ~2023-04-09 | XR_ITS ---
EXAMINATION: XR HAND, RIGHT CLINICAL INFORMATION: Index finger MCP pain and swelling COMPARISON: 04/04/2023, 5 days ago TECHNIQUE: PA, lateral, and oblique views of the right hand. FINDINGS: Again seen are some bulky calcifications adjacent to the second metacarpal phalangeal joint. 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 End could be related to calcific tendinitis or calcific capsulitis. Joint spaces are well maintained. No fractures or dislocations. XR/XR hand RT min 3V IMPRESSION: Bulky calcifications adjacent to the second metacarpophalangeal joint as described above probably secondary to calcific tendinitis or calcific capsulitis related to HADD. This case was reviewed with Dr. Minh Webster musculoskeletal radiologist.
[2023-04-09 10:44] VITALS: BP 128/87; PULSE 101; RESP 20; TEMP 37.2; O2SAT 96; BMI 36.6
--- NOTE | 2023-04-09 11:24 | ED_ITS ---
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 Patient denies exposure to cats, denies any insect bites, denies any traumatic injury, denies any associated fever or chills, denies any history of gout, denies any skin breaks to include abrasions/lacerations. Related Data Home Medications Medication Instructions Recorded Confirmed cholecalciferol (vitamin D3) 25 25 mcg PO DAILY 09/12/20 11/19/22 mcg (1,000 unit) capsule famotidine 20 mg tablet 20 mg PO BID 09/12/20 11/19/22 losartan 50 mg tablet 50 mg PO DAILY 09/12/20 11/19/22 naproxen 375 mg tablet 375 mg PO BID PRN Pain 09/12/20 11/19/22 simethicone 125 mg capsule (Gas 125 mg PO TID-QID PRN Heartburn 09/12/20 11/19/22 Relief (simethicone)) sumatriptan succinate 50 mg tablet See Rx Instructions PO .COMPLEX 09/12/20 11/19/22 (Imitrex) PRN Migraine Headache tramadol 50 mg tablet 50 mg PO Q8H PRN Pain 09/12/20 11/19/22 albuterol sulfate 90 mcg/actuation 2 puff inhalation Q4H PRN 08/21/22 11/19/22 aerosol inhaler (ProAir HFA) dapagliflozin 5 mg tablet (Farxiga) 5 mg PO QAM 08/21/22 11/19/22 glipizide 10 mg tablet 10 mg PO DAILY 08/21/22 11/19/22 metformin 1,000 mg tablet 1,000 mg PO BID 08/21/22 11/19/22 omeprazole 20 mg capsule,delayed 20 mg PO DAILY 08/21/22 11/19/22 release Previous Rx's Medication Instructions Recorded cephalexin 500 mg capsule 500 mg PO QID 7 days #28 caps 05/20/21 colchicine 0.6 mg tablet (Colcrys) See Rx Instructions .Route 05/20/21 .COMPLEX #6 tabs benzonatate 100 mg capsule 100 mg PO BID PRN cough 7 days #14 09/05/22 caps doxycycline hyclate 100 mg tablet 100 mg PO BID 7 days #14 tabs 09/05/22 prednisone 20 mg tablet 20 mg PO DAILY 12 days #26 tabs 09/05/22 cephalexin 500 mg capsule 500 mg PO Q6H 7 days #28 caps 12/12/22 cephalexin 500 mg capsule 500 mg PO TID #21 caps 04/04/23 doxycycline monohydrate 100 mg 100 mg PO BID #14 caps 04/04/23 capsule ketorolac 10 mg tablet 10 mg PO Q6H PRN pain 5 days #20 04/09/23 tabs Allergies Allergy/AdvReac Type Severity Reaction Status Date / Time No Known Allergies Allergy Verified 04/04/23 16:13 [No Known Allergies*] Review of Systems Review of Systems: Pertinent positives and negatives as stated in [facility] Past Medical History Source: nursing notes reviewed Medical History Asthma Diabetes mellitus Encounter for screening for malignant neoplasm of colon Gouty arthritis of left great toe HTN (hypertension) Migraine headache Right knee pain Surgical History Hx of colonoscopy No significant past surgical history Family History Family History Father No problems noted. Mother No problems noted. 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 GENERAL: Well developed, well nourished, in no acute distress. HEAD: Normocephalic/atraumatic EYES: PERRLA, EOMI EARS: Ext canals without abnormality NOSE: Nares patent bilateral OROPHARYNX: no oral lesions noted, posterior pharynx clear NECK: Supple, no adenopathy LUNGS: Normal breath sounds. No adventitious sounds or accessory muscle use. SpO2<96> CARDIOVASCULAR: Regular rate and rhythm without noted murmurs ABDOMEN: Soft, non-tender, non-distended with bowel sounds. MUSCULOSKELETAL: No tenderness, deformities, or effusions noted on gross inspection. EXTREMITIES: No cyanosis, clubbing or edema. RIGHT HAND: Obvious swelling over the index finger MCP, exquisitely tender no appreciable erythema to the area mild proximal extension and moderate own are extension to the right middle MCP. Range of motion significantly affected on flexion or extension of those fingers but otherwise patient has no pain SKIN: Inspection of the skin reveals no rashes NEUROLOGIC: Alert and oriented x 4. Strength and sensation to light touch were grossly intact x 4. Medications Administered Discontinued Medications Generic Name Dose Route Start Last Admin Trade Name Freq PRN Reason Stop Dose Admin Acetaminophen 975 mg 04/09/23 11:30 04/09/23 11:46 Acetaminophen 325 Mg Tablet PO 04/09/23 11:31 975 mg ONCE ONE Administration Ketorolac Tromethamine 15 mg 04/09/23 11:30 04/09/23 11:46 Ketorolac Tromethamine 15 Mg/Ml Vial IM 04/09/23 11:31 15 mg ONCE ONE Administration Medical Decision Making Medical Decision Making MDM Narrative: 57-year-old female with history and clinical presentation given the chronicity of the problem most consistent with a gout/pseudogout, doubt cellulitis as patient is been on dual antibiotics for several days, there is no surrounding erythema, onset most consistent with a gout etiology, there is also the possibility of arthritis. Will obtain x-rays, instruct patient to stop the antibiotics, and start on Toradol. I did review prior renal function studies in November. On review of all investigations, my interpretation is in agreement with radiology's impression of the imaging studies. MIK radiologist also reviewed the imaging studies and this appears to be a calcium associated pain and swelling in patient will be treated with NSAIDs, she is aware of this and is discharged home in stable condition with instructions to follow-up with primary care provider. Differential Diagnosis Please see the discussion above Radiology Impression Radiologist Impression: My interpretation is in agreement with radiology's impression Discharge Plan Discharge Clinical Impression: Painful swelling of joint Patient Disposition: Home, Self-Care Instructions: Calcific Tendinitis (ED), Arthralgia (ED) Additional Instructions: 1. Reanudar todos los medicamentos caseros seg?n lo prescrito. 2. Le holguin recetado antiinflamatorios, Toradol (ketorolaco), debe continuar us?ndolo para ayudar a resolver rothman dolor e hinchaz?n. 3. Suspenda todos los dem?s ibuprofeno, Naprosyn, Motrin, Aleve. 4. Deber? realizar un seguimiento con rothman proveedor de atenci?n primaria en los pr?ximos 1 o 2 d?as. 5. Le recomiendo que use diclofenaco t?tita de venta nando, p?anabela al farmac?utico que le muestre d?nde se encuentra. Regrese a la rosangela de emergencias si los s?ntomas empeoran. 1. Resume all home medications as prescribed. 2. You have been prescribed anti-inflammatories, Toradol (ketorolac), you should continue to use this to help resolve your pain and swelling. 3. Stop all other ibuprofen, Naprosyn, Motrin, Aleve. 4. You will need to follow-up with your primary care provider next 1-2 days. 5. I do recommend that you use [id number]-[id number] topical diclofenac, ask the pharmacist to show you where it is located. Return to the ER for any worsening symptoms. Prescriptions: New ketorolac 10 mg tablet 10 mg PO Q6H PRN (Reason: pain) 5 Days Qty: 20 0RF Rx Instructions: Patient received Toradol in the emergency room. Please instruct patient to stop all other NSAIDs. No Action colchicine [Colcrys] 0.6 mg tablet See Rx Instructions .ROUTE .COMPLEX Qty: 6 0RF Rx Instructions: take 2 pills ( 1.2 mg) and 1 hour later take 1 pill ( 0.6 mg ). May repeat in 3 days if still symptomatic. cephalexin 500 mg capsule 500 mg PO QID 7 Days Qty: 28 0RF benzonatate 100 mg capsule 100 mg PO BID PRN (Reason: cough) 7 Days Qty: 14 0RF prednisone 20 mg tablet 20 mg PO DAILY 12 Days Qty: 26 0RF Rx Instructions: Take 3 tablets for 5 days THEN; Take 2 tablets for 4 days THEN; Take 1 tablet for 3 days doxycycline hyclate 100 mg tablet 100 mg PO BID 7 Days Qty: 14 0RF cephalexin 500 mg capsule 500 mg PO Q6H 7 Days Qty: 28 0RF cephalexin 500 mg capsule 500 mg PO TID Qty: 21 0RF doxycycline monohydrate 100 mg capsule 100 mg PO BID Qty: 14 0RF simethicone [Gas Relief (simethicone)] 125 mg capsule 125 mg PO TID-QID PRN (Reason: Heartburn) tramadol 50 mg tablet 50 mg PO Q8H PRN (Reason: Pain) famotidine 20 mg tablet 20 mg PO BID naproxen 375 mg tablet 375 mg PO BID PRN (Reason: Pain) Hold Instructions: Resume on 12/06/20. post polypectomy sumatriptan succinate [Imitrex] 50 mg tablet See Rx Instructions PO .COMPLEX PRN (Reason: Migraine Headache) Rx Instructions: take 1 tab at onset of headache; if no relief may repeat 1 tab after at least 2 hrs; max = 4 tabs/24 hr PO losartan 50 mg tablet 50 mg PO DAILY cholecalciferol (vitamin D3) 25 mcg (1,000 unit) capsule 25 mcg PO DAILY albuterol sulfate [ProAir HFA] 90 mcg/actuation HFA aerosol inhaler 2 puff inhalation Q4H PRN metformin 1,000 mg tablet 1,000 mg PO BID glipizide 10 mg tablet 10 mg PO DAILY omeprazole 20 mg capsule,delayed release(DR/EC) 20 mg PO DAILY Farxiga 5 mg tablet 5 mg PO QAM Referrals: [facility] [Primary Care Provider] - Stand Alone Forms: Work/School Release Print Language: Gabonese
[2023-04-09] MEDS: Ketorolac Tromethamine 15 MG/ML VIAL IM (11:46)
[2023-04-09] MEDS: Acetaminophen 325 MG TABLET 975 MG PO (11:46)
== END 2023-04-09 12:39 | disposition home or self-care (01) ==
PROVIDERS: Emergency Provider Student in an Organized Health Care Education/Training Program
DX: M25.841 Other specified joint disorders, right hand (principal); M79.641 Pain in right hand; E11.9 Type 2 diabetes mellitus without complications; Z79.84 Long term (current) use of oral hypoglycemic drugs; Z79.899 Other long term (current) drug therapy
CPT/HCPCS: 73130; 96372; 99283; 99284; J1885

== ENCOUNTER 2023-04-24 13:11 | Outpatient (REF) | payer MEDICAID, SELFPAY ==
--- NOTE | ~2023-04-24 | XR_ITS ---
EXAMINATION: XR HAND, RIGHT CLINICAL INFORMATION: Inflammatory arthritis COMPARISON: Right hand x-rays April 09, 2023 TECHNIQUE: PA, lateral, and oblique views of the right hand. FINDINGS: Visualized portions of the distal radius and ulna demonstrate no fracture. Carpal rows are maintained. No carpal bone fracture. Mild degenerative changes of the first carpal metacarpal joint. No metacarpal or phalangeal fracture. Soft tissue calcifications are again noted adjacent to the second MCP joint, however, these calcifications appear less prominent on today's examination. There are mild degenerative changes of the first MCP joint and scattered IP joints. No focal soft tissue swelling. No radiopaque foreign body. XR/XR hand RT min 3V IMPRESSION: 1. Mild degenerative changes of the right hand. No fracture. 2. Soft tissue calcifications are again noted adjacent to the second MCP joint, however, these calcifications appear less prominent on today's examination. Clinical correlation recommended.
== END 2023-04-24 13:12 | disposition home or self-care (01) ==
LOC: HO.HHCX 13:11
PROVIDERS: Visit Provider Internal Medicine
DX: M19.041 Primary osteoarthritis, right hand (principal); M65.9 Synovitis and tenosynovitis, unspecified
CPT/HCPCS: 73130

== ENCOUNTER → 2023-05-18 09:15 | Outpatient (BNVA) | payer MEDICAID, SELFPAY | PROVIDERS: PCP Internal Medicine; Referring Provider Internal Medicine; Visit Provider Internal Medicine Cardiovascular Disease | DX: I10 Essential (primary) hypertension (principal); E11.9 Type 2 diabetes mellitus without complications; Z79.899 Other long term (current) drug therapy | CPT/HCPCS: 99212 ==

== ENCOUNTER → 2023-05-27 13:46 | Outpatient (BNVA) | payer MEDICAID, SELFPAY | PROVIDERS: Visit Provider Nurse Practitioner Family | DX: R10.31 Right lower quadrant pain (principal) | CPT/HCPCS: 99212 ==

== ENCOUNTER 2023-06-04 08:44 | Outpatient (REF) | payer MEDICAID, SELFPAY ==
--- NOTE | ~2023-06-04 | MM_ITS ---
EXAMINATION: MM SCREENING DIGITAL BREAST TOMOSYNTHESIS, BILATERAL CLINICAL INFORMATION: Screening. Asymptomatic. The lifetime risk of breast cancer based on the Tyrer-Cuzick Model is 7.0%. COMPARISON: Mammography: This study is compared with prior exams dating back to 2018. TECHNIQUE: Digital breast tomosynthesis is performed in both the craniocaudal and mediolateral oblique views along with computer-aided detection (CAD). Synthesized 2D images are generated from the tomosynthesis. FINDINGS: The breasts are heterogeneously dense, which may obscure small masses (ACR BI-RADS breast composition Category c). There are no significant masses, abnormal calcifications, or other abnormalities. MM/MM tomosynthesis screening BI IMPRESSION: No mammographic evidence of malignancy. ASSESSMENT: BI-RADS BI-RADS 1 - Negative RECOMMENDATION: Routine annual mammography screening. 1 year F/U This examination should not preclude the clinical evaluation of a suspicious palpable abnormality. This patient's information was entered into a reminder system with a target due date for their next mammogram.
== END 2023-06-04 08:45 | disposition home or self-care (01) ==
LOC: HO.MAMMO 08:44
PROVIDERS: Visit Provider Internal Medicine
DX: Z12.31 Encounter for screening mammogram for malignant neoplasm of breast (principal)
CPT/HCPCS: 77063; 77067

== ENCOUNTER → 2023-06-04 09:15 | Outpatient (BNV) | payer MEDICAID, SELFPAY | PROVIDERS: Visit Provider Radiology Diagnostic Radiology | DX: Z12.31 Encounter for screening mammogram for malignant neoplasm of breast (principal) | CPT/HCPCS: 77063; 77067 ==

== ENCOUNTER 2023-06-20 13:07 | Outpatient (REF) | payer MEDICAID, SELFPAY ==
--- NOTE | ~2023-06-20 | MR_ITS ---
EXAMINATION: MR HAND WITHOUT CONTRAST, RIGHT CLINICAL INFORMATION: Inflammatory arthritis. COMPARISON: Radiographs 04/24/2023. TECHNIQUE: MRI without contrast is performed on the right hand. FINDINGS: There is intermediate signal and mild edema along the ulnar collateral ligament at the 2nd MCP joint corresponding with the area of faint calcification on the radiographs likely representing calcific capsulitis. This could be the sequela of a remote injury. There is a partial tear of the radial collateral ligament at its insertion onto the 2nd metacarpal head. Collateral ligaments appear otherwise intact. No joint effusions or active erosions. No fracture. Flexor and extensor tendons appear intact. Mild degenerative changes including small dorsal osteophytes of the 2nd and 3rd DIP joints. 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 MR/MR hand RT wo con IMPRESSION: 1. Probable calcific capsulitis of the 2nd MCP joint with a partial tear of the radial collateral ligament at its insertion onto the metacarpal head. 2. Mild degenerative changes as described.
== END 2023-06-20 13:08 | disposition home or self-care (01) ==
LOC: HO.MRI 13:07
PROVIDERS: Visit Provider Internal Medicine
DX: M19.90 Unspecified osteoarthritis, unspecified site (principal); M65.9 Synovitis and tenosynovitis, unspecified
CPT/HCPCS: 73218

== ENCOUNTER 2023-07-24 12:18 | Outpatient (AMB) | payer MEDICAID, SELFPAY ==
[2023-07-24 12:51] VITALS: BP 136/74; PULSE 91; TEMP 36.3; O2SAT 97; BMI 29.6
--- NOTE | 2023-07-24 12:51 | MHC.OFFVIS ---
Intake Vital Signs 07/24/23 12:51 Height 5 ft 2 in Weight 161 lb 13.109 oz BMI 29.6 BP 136/74 Blood Pressure Location Rt brachial Position Sitting Pulse 91 Pulse Source Pulse Oximeter Temp 97.3 F Temp Source Skin Pulse Oximetry (%) 97 Intake Visit Reasons: Inflammatory Arthritis Intake Note: New pt presents today for consult. C/o bl hand pain. Pain started in March Stock Controller Required: Yes Stock Controller Name: Dahlia Berry Information Interpreted: clinical only Accompanied by: Self / Same As Patient Allergies No Known Allergies [No Known Allergies*] Allergy (Verified 07/24/23 13:02) Medication List - Last Reconciled 07/24/23 by Mackenzie Goss MD albuterol sulfate 90 mcg/actuation (ProAir HFA) 2 puffs inhalation Q4H PRN cholecalciferol (vitamin D3) 25 mcg PO DAILY dapagliflozin propanediol (Farxiga) 5 mg PO QAM dicyclomine 10 mg PO BID PRN famotidine 20 mg PO BID losartan 50 mg PO DAILY metformin 1,000 mg PO BID omeprazole 20 mg PO DAILY simethicone 125 mg PO Q8H PRN sumatriptan succinate (Imitrex) take 1 tab at onset of headache; if no relief may repeat 1 tab after at least 2 hrs; max = 4 tabs/24 hr PO HPI HPI Comments History of Present Illness Details This is a 58-year-old female who presents for evaluation of right hand pain. The condition started about 4 months ago with pain and significant swelling and stiffness of her right index. She went to the emergency room. She was prescribed antibiotics without relief. She also is having pain in her left thumb. Patient denies any trauma. 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 She denies any other swollen or tender joints. She is unaware of any family history of autoimmune rheumatic disease. [facility] Medical History Asthma Diabetes mellitus Encounter for screening for malignant neoplasm of colon Gouty arthritis of left great toe HTN (hypertension) Migraine headache Right knee pain Surgical History Hx of colonoscopy Family History Father No problems noted. Mother No problems noted. 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 Review of Systems Musc Reports arthralgias, Reports joint swelling, Reports limited range of motion and Reports stiffness Physical Exam Vital Signs: Last Vital Signs Temp 97.3 F 07/24/23 12:51 Pulse 91 07/24/23 12:51 BP 136/74 07/24/23 12:51 Pulse Ox 97 07/24/23 12:51 BMI result Body Mass Index 29.6 Const General: cooperative, healthy appearing and comfortable Nutritional Appearance: overweight Orientation/consciousness: patient oriented x3 Limitations: no limitations HEENT Head: Yes normocephalic and Yes atraumatic Mouth: moist mucous membranes Resp Effort & Inspection: normal respiratory effort and able to speak in complete sentences Neuro General: patient oriented x3 Extrem Other: Swelling of right 2nd MCP as well as mild swelling of the right index. Significant tenderness to palpation right 2nd MCP, PIP and the IP. Left 1st MCP tenderness and mild swelling Normal range of motion of both shoulders Normal range of motion of both knees without crepitus or pain Results Reviewed Results Reviewed: MR/MR hand RT wo con IMPRESSION: 1. Probable calcific capsulitis of the 2nd MCP joint with a partial tear of the radial collateral ligament at its insertion onto the metacarpal head. 2. Mild degenerative changes as described. XR/XR hand RT min 3V IMPRESSION: Bulky calcifications adjacent to the second metacarpophalangeal joint as described above probably secondary to calcific tendinitis or calcific capsulitis related to HADD. Labs 03/2023 MARTHA IFA negative CCP negative Uric acid 2.6 Assessment & Plan Assessment & Plan (1) Hydroxyapatite deposition disease of hand: Code(s): M11.049 - Hydroxyapatite deposition disease, unspecified hand Qualifiers: Laterality: right Qualified Code(s): M11.041 - Hydroxyapatite deposition disease, right hand Plan: This is a 58-year-old female who presents for evaluation of right 2nd MCP pain and swelling for the last 3 months. Serology showed a negative MARTHA, negative CCP. Clinical picture rather consistent with crystalline arthropathy likely hydroxy appetite deposition disease. Will order labs to rule out secondary causes of CPPD. Check x-ray of other hand Start colchicine 1 tab twice daily for relief, advised patient to cut down to 1 tab daily if she develops diarrhea. Follow-up in 4 weeks. Will discuss steroid injection Plan I spent 48 minutes reviewing patient's chart, evaluating patient, ordering diagnostic workup, counseling patient and documenting in the chart Orders: Orders PTHI Today M11.20 - Other chondrocalcinosis, unspecified site Phosphorus Today M1.20 - Other chondrocalcinosis, unspecified site Magnesium Today .20 - Other chondrocalcinosis, unspecified site Complete Blood Count Auto Diff Today .20 - Other chondrocalcinosis, unspecified site Comprehensive Met. Panel Today .20 - Other chondrocalcinosis, unspecified site C Reactive Protein Today M1.20 - Other chondrocalcinosis, unspecified site Erythrocyte Sedimentation Rate Today .20 - Other chondrocalcinosis, unspecified site Rheumatoid Factor Today .20 - Other chondrocalcinosis, unspecified site Ferritin Today .20 - Other chondrocalcinosis, unspecified site IRON PROFILE Today .20 - Other chondrocalcinosis, unspecified site Transferrin Today .20 - Other chondrocalcinosis, unspecified site XR hand wrist LT Today .20 - Other chondrocalcinosis, unspecified site TSH reflex Free T4 Today M11.20 - Other chondrocalcinosis, unspecified site Medications: New colchicine (gout) 0.6 mg PO BID 60 tabs 1RF Coding Level of Care Code New Pt Level 4 (88678) Diagnoses Hydroxyapatite deposition disease of hand M11.041 Laterality: right
== END 2023-07-24 13:34 | disposition home or self-care (01) ==
PROVIDERS: PCP Internal Medicine; Referring Provider Internal Medicine; Visit Provider Student in an Organized Health Care Education/Training Program
DX: M11.0 Hydroxyapatite deposition disease (principal)
CPT/HCPCS: 99204

== ENCOUNTER → 2023-07-24 12:18 | Outpatient (BNVA) | payer MEDICAID, SELFPAY | PROVIDERS: Visit Provider Student in an Organized Health Care Education/Training Program | DX: M11.0 Hydroxyapatite deposition disease (principal) | CPT/HCPCS: 99202 ==

== ENCOUNTER 2023-07-30 09:12 | Outpatient (REF) | payer MEDICAID, SELFPAY ==
--- NOTE | ~2023-07-30 | XR_ITS ---
EXAMINATION: XR WRIST, LEFT XR HAND, LEFT CLINICAL INFORMATION: Chondrocalcinosis. COMPARISON: No similar priors. TECHNIQUE: PA, lateral, and oblique views of the left left wrist and left hand. FINDINGS: No acute fractures or subluxation. Moderate to severe joint space narrowing in the first carpometacarpal joint with mild subchondral sclerosis and bony productive changes. Small well-corticated osseous fragments adjacent to the second and third distal interphalangeal joints, favored to represent osteophytes. Small calcific/ossific fragment adjacent to the first proximal interphalangeal joint that could represent an osteophyte or minimal chondrocalcinosis. XR/XR hand wrist LT IMPRESSION: 1. No acute fractures or subluxation. 2. Moderate to severe degenerative osteoarthritis of the first carpometacarpal joint. 3. Mild degenerative osteoarthritis of the second and third distal interphalangeal joints. 4. Small osteophyte versus chondrocalcinosis adjacent to the first proximal interphalangeal joint.
[2023-07-30 09:23] LABS: MANUAL DIFF FLAG NO
[2023-07-30 09:46] LABS: Basophils Percent Auto 0.5 % (0-2); Eosinophils Absolute Auto 0.1 X10*3/uL (0.0-0.4); Eosinophils Percent Auto 1.7 % (0-4); Hematocrit 37.9 % (37.0-47.0); Hemoglobin 12.7 g/dl (12.0-16.0); Imm Gran Abs Auto 0.02 X10*3/uL (0.00-0.03); Imm Gran Pct Auto 0.3 % (0.0-0.4); Lymphocytes Absolute Auto 2.8 X10*3/uL (1.2-4.9); Lymphocytes Percent Auto 49.1 % (20-40); Mean Corpuscular HGB Conc 33.5 g/dl (31.0-35.0); Mean Corpuscular Hemoglobin 30.8 pg (27.0-33.0); Mean Platelet Volume 9.5 fL (9.4-12.3); Monocytes Absolute Auto 0.4 X10*3/uL (0.1-1.2); Monocytes Percent Auto 6.1 % (2-11); Neutrophils Absolute Auto 2.4 x10*3/uL (2.0-8.3); Neutrophils Percent Auto 42.3 % (45-73); Platelet Count 330 X10*3/uL (160-400); Red Blood Count 4.12 X10*6/uL (4.20-5.50); Red Cell Distribution Width 13.2 % (11.0-16.0); White Blood Count 5.8 X10*3/uL (4.8-10.8)
[2023-07-30 10:23] LABS: Rheumatoid Factor < 13.0 IU/mL (<15.0)
[2023-07-30 10:35] LABS: Alanine Aminotransferase 13 U/L (0-31); Alkaline Phosphatase 99 U/L (39-117); Anion Gap 12 (12-20); Aspartate Amino Transferase 15 U/L (5-31); Bilirubin Total 0.4 mg/dL (0.0-1.0); Blood Urea Nitrogen 14 mg/dL (9-16); C Reactive Protein 0.98 mg/dL (< or = 0.50); Calcium 9.2 mg/dL (8.4-10.2); Carbon Dioxide 24 mmol/L (22-29); Chloride 109 mmol/L (96-108); Estimated Glomerular Filt Rate > 60; Glucose Random 212 mg/dL (60-115); Iron 73 mcg/dL (30-160); Magnesium 1.6 mg/dL (1.6-2.6); Percent Iron Saturation 26 % (15-50); Phosphorus 3.8 mg/dL (2.7-4.5); Potassium 3.9 mmol/L (3.3-5.1); Sodium 141 mmol/L (135-145); Total Iron Binding Capacity 279 mcg/dL (228-428); Total Protein 7.2 g/dL (6.5-8.0); Unsaturated Iron Binding 206 ug/dL
[2023-07-30 10:52] LABS: Ferritin 69 ng/mL (10-250); TSH reflex Free T4 2.55 uIU/mL (0.32-4.0)
[2023-07-30 11:04] LABS: Erythrocyte Sedimentation Rate 23 MM/HR (0-20)
[2023-07-31 15:54] LABS: Calcium (PTHI) 8.9 mg/dL (8.6-10.4); PTHI 45 pg/mL (16-77)
[2023-08-03 09:59] LABS: Transferrin 255 mg/dL (188-341)
== END 2023-07-30 09:13 | disposition home or self-care (01) ==
LOC: HO.LAB 09:12
PROVIDERS: PCP Internal Medicine; Visit Provider Student in an Organized Health Care Education/Training Program
DX: M11.20 Other chondrocalcinosis, unspecified site (principal)
CPT/HCPCS: 36415; 73110; 73130; 80053; 82728; 83540; 83735; 83970; 84100; 84443; 84466; 85025; 85652; 86140; 86431

== ENCOUNTER 2023-08-12 09:42 | Emergency (ER) | payer MEDICAID, SELFPAY ==
[2023-08-12 09:48] VITALS: BP 150/87; PULSE 94; RESP 16; TEMP 36.6; O2SAT 97; BMI 29.2
--- NOTE | 2023-08-12 11:38 | ED_ITS ---
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 She denies any tooth pain. She states the pain came on gradually and has gotten worse. Pain with eating anything. Lesions are located on the roof of her mouth only. No lip or gum lesions. no rash on the body. no fevers, no history of shingles. Onset (ago): day(s) (2) Duration: constant Severity scale (1-10): 8 Relieving factors: nothing Exacerbating factors: chewing Related Data Home Medications Medication Instructions Recorded Confirmed cholecalciferol (vitamin D3) 25 25 mcg PO DAILY 09/12/20 07/24/23 mcg (1,000 unit) capsule famotidine 20 mg tablet 20 mg PO BID 09/12/20 07/24/23 losartan 50 mg tablet 50 mg PO DAILY 09/12/20 07/24/23 sumatriptan succinate 50 mg tablet See Rx Instructions PO .COMPLEX 09/12/20 07/24/23 (Imitrex) PRN Migraine Headache albuterol sulfate 90 mcg/actuation 2 puff inhalation Q4H PRN 08/21/22 07/24/23 aerosol inhaler (ProAir HFA) dapagliflozin propanediol 5 mg 5 mg PO QAM 08/21/22 07/24/23 tablet (Farxiga) metformin 1,000 mg tablet 1,000 mg PO BID 08/21/22 07/24/23 omeprazole 20 mg capsule,delayed 20 mg PO DAILY 08/21/22 07/24/23 release simethicone 125 mg chewable tablet 125 mg PO Q8H PRN gas 07/24/23 07/24/23 Previous Rx's Medication Instructions Recorded dicyclomine 10 mg capsule 10 mg PO BID PRN abdominal 05/27/23 discomfort #90 caps colchicine (gout) 0.6 mg tablet 0.6 mg PO BID #60 tabs 07/24/23 acyclovir 400 mg tablet 400 mg PO TID 1 week #21 tabs 08/12/23 lidocaine HCl 2 % mucosal solution 5 ml mucous membrane QID PRN mouth 08/12/23 pain #100 mL Allergies Allergy/AdvReac Type Severity Reaction Status Date / Time No Known Allergies Allergy Verified 08/12/23 09:48 [No Known Allergies*] Review of Systems Review of Systems: Yes all other systems are reviewed and are negative COUNTS INCLUDE 234 BEDS AT THE [facility] Past Medical History Medical History Asthma Diabetes mellitus Encounter for screening for malignant neoplasm of colon Gouty arthritis of left great toe HTN (hypertension) Migraine headache Right knee pain Surgical History Hx of colonoscopy Family History Family History Father No problems noted. Mother No problems noted. 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 Oriented X3. No acute distress. HEENT: normal external inspection. multiple dental fillings. hard palate with vesicles in a linear pattern and a cluster about 1cm round toward the lingual side of teeth 9 and 10. no associated gingival swelling or tenderness associated with any teeth. normal inspection of the buccal mucosa, tonsils and uvula. CVS: Normal heart rate and rhythm. Pulses normal. Respiratory: No respiratory distress. Skin: Skin warm and dry. Normal skin color. Normal skin turgor. No rashes. Extremities: normal inspection x4. right index finger with swelling and tenderness of the DIP without associated erythema or warmth. pain with flexion of DIP. Neuro: Oriented X 3. No motor deficit. No sensory deficit. Medications Administered Discontinued Medications Generic Name Dose Route Start Last Admin Trade Name Merrill PRN Reason Stop Dose Admin Ibuprofen 600 mg 08/12/23 11:25 08/12/23 11:56 Ibuprofen 600 Mg Tablet PO 08/12/23 11:26 Not Given ONCE ONE Lidocaine HCl 15 ml 08/12/23 11:25 08/12/23 11:56 Lidocaine Hcl Viscous 2 % 15 Ml Solution MUCOUS MEM 08/12/23 11:26 15 ml ONCE ONE Administration Medical Decision Making Medical Decision Making MDM Narrative: 58 yo female presenting with painful, burning lesions on the hard palate x2 days. no other lesions in the mouth, nothing on the hands, feet or skin. no viral symptoms. exam most c/w HSV infection. will treat w/ acyclovir. case d/w Dr. Lovell. clinical staff anesthesiologist used to discuss dx, tx and return precautions. stable for d/c home Differential Diagnosis Differential Diagnoses: The differential diagnosis associated with the presentation includes HSV gingivostomatitis, hand foot and mouth disease, apthous ulcers External Record Review External record reviewed: Outpatient record and Prior outpatient labs Prescription Management I considered prescription management with: Pain Medication and Antiviral Chronic Conditions Patient?s care impacted by: Diabetes Critical Care Time Critical Care Time Critical Care Time: No Discharge Plan Discharge Clinical Impression: Gingivostomatitis Patient Disposition: Home, Self-Care Instructions: Gingivostomatitis (ED) Additional Instructions: take the prescribed antiviral medication for possible viral infection in the mouth use the prescribed numbing solution on the area up to 4 times per day take motrin and tylenol as needed for pain you can use warm salt water gargles as well to help with pain and discomfort If you develop new or worsening symptoms call 911 or come back to the ER for further evaluation. colten el medicamento antiviral recetado para demetrio posible infecci?n viral en la boca use la soluci?n anest?juliet prescrita en el ?aiyana hasta 4 veces al d?a tome motrin y tylenol seg?n sea necesario para el dolor Tambi?n puedes hacer g?rgaras con agua tibia y shanae para ayudar con el dolor y el malestar. Si desarrolla s?ntomas nuevos o que empeoran, llame al 911 o regrese a la rosangela de emergencias para demetrio evaluaci?n adicional. Prescriptions: New acyclovir 400 mg tablet 400 mg PO TID 7 Days Qty: 21 0RF lidocaine HCl 2 % solution 5 ml mucous membrane QID PRN (Reason: mouth pain) Qty: 100 0RF No Action famotidine 20 mg tablet 20 mg PO BID sumatriptan succinate [Imitrex] 50 mg tablet See Rx Instructions PO .COMPLEX PRN (Reason: Migraine Headache) Rx Instructions: take 1 tab at onset of headache; if no relief may repeat 1 tab after at least 2 hrs; max = 4 tabs/24 hr PO losartan 50 mg tablet 50 mg PO DAILY cholecalciferol (vitamin D3) 25 mcg (1,000 unit) capsule 25 mcg PO DAILY albuterol sulfate [ProAir HFA] 90 mcg/actuation HFA aerosol inhaler 2 puff inhalation Q4H PRN metformin 1,000 mg tablet 1,000 mg PO BID omeprazole 20 mg capsule,delayed release(DR/EC) 20 mg PO DAILY Farxiga 5 mg tablet 5 mg PO QAM simethicone 125 mg tablet,chewable 125 mg PO Q8H PRN (Reason: gas) colchicine (gout) 0.6 mg tablet 0.6 mg PO BID Qty: 60 1RF dicyclomine 10 mg capsule 10 mg PO BID PRN (Reason: abdominal discomfort) Qty: 90 2RF Referrals: Brianna Matt MD [Primary Care Provider] - Stand Alone Forms: Work/School Release Interventions: ED Discharge Assessment Last Done: 08/12/23 12:15 Discharge Date/Time: 08/12/23 12:20 Print Language: Citizen Of [place]
[2023-08-12] MEDS: Lidocaine HCl Viscous 2 % 15 ML SOLUTION MUCOUS MEM (11:56)
== END 2023-08-12 12:20 | disposition home or self-care (01) ==
PROVIDERS: Emergency Provider Emergency Medicine; PCP Internal Medicine
DX: K05.10 Chronic gingivitis, plaque induced (principal); I10 Essential (primary) hypertension; Z79.899 Other long term (current) drug therapy
CPT/HCPCS: 99283; 99284

== ENCOUNTER 2023-08-25 08:35 | Outpatient (AMB) | payer MEDICAID, SELFPAY ==
--- NOTE | 2023-08-25 08:43 | MHC.OFFVIS ---
Intake Vital Signs 08/25/23 08:44 Height 5 ft 3 in Weight 156 lb 8.451 oz BMI 27.7 BP 108/63 Blood Pressure Location Lt brachial Position Sitting Pulse 96 Intake Visit Reasons: 3 month fu Intake Note: Nita presents in office visit today in follow up of abdominal pain. CC: Patient reports she continues to have RLQ abdominal pain. Denies other GI symptoms or concerns today. 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 No tenderness. Hypoactive bowel sounds given the suspicion for mild constipation. However patient does report that she moves her bowels every day and she feels like she empties them completely. Patient also reports having right hand swelling. Denies having diarrhea. Most likely pain related to gas trapping. Low FODMAP diet discussed with her. Will send script for dicyclomine. However patient was instructed to call the office if she will be come more constipated. Patient was also encouraged to increase fluid intake and activity to promote better bowel motility. Will check vitamin-D, B12 and folate levels. CRP will be checked due to patient right hand swelling. I will see patient in 3 months, sooner on as needed basis. Patient is agreeable to this plan and verbalizes understanding of instructions. She was given the opportunity to ask questions and all questions answered. ? TODAY'S VISIT Patient is here today for follow-up and to discuss lab results. Patient continues with her right lower quadrant discomfort. Patient's blood work did not reveal any acute processes. Patient continues to have pain intermittent not really related to food. Patient reports that she moves her bowels few times a day and it is soft. Denies having loose stools. Patient feels like she empties her bowels completely. Denies any dyspepsia, dysphagia or odynophagia. Patient tried dicyclomine, however reports that it was not helpful so she stopped. Patient reports occasional abdominal bloating. Patient does drink lots of milk. Uses also milk or cream in her coffee. Patient denies any fever or chills. Denies any nausea or vomiting. Denies melena, hematochezia, unintentional weight loss or ribbon like stools. [facility] Medical History Right knee pain Diabetes mellitus Gouty arthritis of left great toe HTN (hypertension) Migraine headache Asthma Encounter for screening for malignant neoplasm of colon Surgical History Hx of colonoscopy Family History Father No problems noted. Mother No problems noted. 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 Review of Systems Const Denies weight gain and Denies weight loss ENT Reports no additional complaints, Denies dysphagia and Denies odynophagia Card Reports no additional complaints Resp Reports no additional complaints GI Reports abdominal pain (RLQ), Denies belching, Denies melena, Denies bloating, Denies change in bowel habits, Denies dysphagia, Denies excessive flatus, Denies dyspepsia, Denies heartburn, Denies diarrhea, Denies loose stools, Denies nausea, Denies odynophagia and Denies vomiting Reports no additional complaints Musc Reports no additional complaints Neuro Reports no additional complaints Psych Reports no additional complaints Endo Reports no additional complaints Physical Exam Vital Signs: Last Vital Signs Pulse 96 08/25/23 08:44 BP 108/63 08/25/23 08:44 BMI result Body Mass Index 27.7 Const General: healthy appearing, no acute distress and well developed Nutritional Appearance: well nourished Orientation/consciousness: patient oriented x3 HEENT Head: Yes normal to inspection, Yes normocephalic and Yes atraumatic Face and sinus: Yes normal facial exam Mouth: Normal oral and palatal mucosa present Throat: Yes posterior oropharynx normal, Yes tonsils normal and Yes uvula midline Eyes General: appearance normal, both eyes and all related structures Neck Neck: Yes normal visual inspection, Yes full ROM and Yes trachea midline Thyroid: Thyroid normal Resp Effort & Inspection: normal respiratory effort, able to speak in complete sentences, no tracheal deviation and symmetric chest movement Auscultation: clear to auscultation bilaterally Cardio Rate: regular rate Heart sounds: S1 normal heart sound present and S2 normal heart sound present GI Inspection: Yes normal to inspection and No distended Palpation (GI): Soft to palpation, not firm, nontender and No hepatosplenomegaly present Auscultation: Hyperactive bowel sounds present General: Yes no CVA tenderness Back/Spine/Pelvis Back: no CVA tenderness Skin General skin exam: elasticity normal, turgor normal and dry skin Neuro General: patient oriented x3 Psych Appearance: grossly normal Mental Status: mental status grossly normal Speech and movement: Normal speech and movement present Assessment & Plan Assessment & Plan (1) Abdominal pain: Code(s): R10.9 - Unspecified abdominal pain Qualifiers: Abdominal location: right lower quadrant Qualified Code(s): R10.31 - Right lower quadrant pain (2) Postprandial abdominal bloating: Code(s): R14.0 - Abdominal distension (gaseous) Plan Negative physical exam for any tenderness. As mentioned last visit patient had CT scan back in January that showed no acute processes. No true reason for right lower quadrant pain. Patient's appendix and cecum is in the right upper quadrant. Gallbladder was normal number the stent and. Normal size CBD. Pain not related to meals. Patient reports pain there occasionally depending on how she moves. Patient however had hyperactive bowel sounds move likely her symptoms could be related to gas. Low FODMAP diet discussed with patient. Patient was encouraged to drink lactose-free milk. List of food recommended as well as list of food to avoid given to patient. I will see her in 3 months, sooner on as needed basis. Patient is agreeable to this plan and verbalizes understanding of instructions. He was given the opportunity to ask questions and all questions answered. Thank you for allowing me to participate in her care Coding Level of Care Code Est Pt Level 3 (98635) Diagnoses Right lower quadrant abdominal pain R10.31 Abdominal location: right lower quadrant Postprandial abdominal bloating R14.0 Time Spent (min) 25 Comment 15 minutes spent with patient and additional 10 minutes spent reviewing her records
[2023-08-25 08:44] VITALS: BP 108/63; PULSE 96; BMI 27.7
== END 2023-08-25 09:23 | disposition home or self-care (01) ==
PROVIDERS: Visit Provider Nurse Practitioner Family
DX: R10.31 Right lower quadrant pain (principal); R14.0 Abdominal distension (gaseous)
CPT/HCPCS: 99213

== ENCOUNTER → 2023-08-25 08:35 | Outpatient (BNVA) | payer MEDICAID, SELFPAY | PROVIDERS: Visit Provider Nurse Practitioner Family | DX: R10.31 Right lower quadrant pain (principal); R14.0 Abdominal distension (gaseous) | CPT/HCPCS: 99212 ==

== ENCOUNTER 2023-08-28 09:37 | Outpatient (AMB) | payer MEDICAID, SELFPAY ==
--- NOTE | 2023-08-27 10:53 | A.OFFVIS_ITS ---
Intake Intake Visit Reasons: CPPD Allergies No Known Allergies [No Known Allergies*] Allergy (Verified 08/25/23 08:48) PFSH Medical History Right knee pain Diabetes mellitus Gouty arthritis of left great toe HTN (hypertension) Migraine headache Asthma Encounter for screening for malignant neoplasm of colon Surgical History Hx of colonoscopy Family History Father No problems noted. Mother No problems noted. 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
[2023-08-28 10:12] VITALS: BP 138/66; PULSE 80; TEMP 36.7; O2SAT 97; BMI 27.7
--- NOTE | 2023-08-28 10:12 | MHC.OFFVIS ---
Intake Vital Signs 08/28/23 10:12 Height 5 ft 3 in Weight 156 lb 4.924 oz BMI 27.7 BP 138/66 Blood Pressure Location Rt brachial Position Sitting Pulse 80 Pulse Source Pulse Oximeter Temp 98.1 F Temp Source Skin Pulse Oximetry (%) 97 Intake Visit Reasons: CPPD Intake Note: Pt seen today for follow up and test results. She is upset because of her hand pain and she is unable to work. She was prescribed colchicine 1 tab twice daily for relief, Colchicine d/c by external office reported as pt no longer taking.. She is requesting a refill on tramadol Supply Chain Assistant Required: Yes Accompanied by: Self / Same As Patient Allergies No Known Allergies [No Known Allergies*] Allergy (Verified 08/28/23 10:14) Medication List - Last Reconciled 08/28/23 by Mackenzie Goss MD acyclovir 400 mg PO TID 1 week albuterol sulfate 90 mcg/actuation (ProAir HFA) 2 puffs inhalation Q4H PRN cholecalciferol (vitamin D3) 25 mcg PO DAILY dicyclomine 10 mg PO BID PRN famotidine 20 mg PO BID losartan 50 mg PO DAILY metformin 1,000 mg PO BID omeprazole 20 mg PO DAILY simethicone 125 mg PO Q8H PRN sumatriptan succinate (Imitrex) take 1 tab at onset of headache; if no relief may repeat 1 tab after at least 2 hrs; max = 4 tabs/24 hr PO tramadol 50 mg PO Q6H PRN HPI HPI Comments History of Present Illness Details Patient returns for follow-up. She took colchicine for some time but does not recall for how long. She believes she took it for 1 week. She continues to have significant right index pain swelling and stiffness. 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 The condition started about 4 months ago with pain and significant swelling and stiffness of her right index. She went to the emergency room. She was prescribed antibiotics without relief. She also is having pain in her left thumb. Patient denies any trauma. 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 She denies any other swollen or tender joints. She is unaware of any family history of autoimmune rheumatic disease. [facility] Medical History Right knee pain Diabetes mellitus Gouty arthritis of left great toe HTN (hypertension) Migraine headache Asthma Encounter for screening for malignant neoplasm of colon Surgical History Hx of colonoscopy Family History Father No problems noted. Mother No problems noted. 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 Review of Systems Musc Reports arthralgias, Reports joint swelling, Reports limited range of motion and Reports stiffness Physical Exam Vital Signs: Last Vital Signs Temp 98.1 F 08/28/23 10:12 Pulse 80 08/28/23 10:12 BP 138/66 08/28/23 10:12 Pulse Ox 97 08/28/23 10:12 BMI result Body Mass Index 27.7 Const General: cooperative, healthy appearing and comfortable Nutritional Appearance: overweight Orientation/consciousness: patient oriented x3 Limitations: no limitations HEENT Head: Yes normocephalic and Yes atraumatic Resp Effort & Inspection: normal respiratory effort and able to speak in complete sentences Neuro General: patient oriented x3 Extrem Other: Swelling of right 2nd MCP as well as mild swelling of the right index. Significant tenderness to palpation right 2nd MCP, PIP and DIP. Normal range of motion of both shoulders Normal range of motion of both knees without crepitus or pain Office Procedures Joint Injection/Drain Joint Injection/Drain Details: Right 2nd MCP Prep: site was prepped using sterile technique and ethochloride spray was applied Injected: 10 mg of, Kenalog and other (0.1 mL of 1% lidocaine) Approach Used: other Procedure: The patient tolerated the procedure well Coding Details: The area over the dorso-radial aspect of the right 2nd MCP was prepped with ChloraPrep, ethyl chloride spray was applied then using a 27 gauge needle 10 mg of Kenalog mixed with 0.1 mL of 1% lidocaine was injected into the right 2nd MCP joint space. The patient tolerated the procedure well - Small Joint Procedure code (CPT) selection complete Results Reviewed Results Reviewed: MR/MR hand RT wo con IMPRESSION: 1. Probable calcific capsulitis of the 2nd MCP joint with a partial tear of the radial collateral ligament at its insertion onto the metacarpal head. 2. Mild degenerative changes as described. XR/XR hand RT min 3V IMPRESSION: Bulky calcifications adjacent to the second metacarpophalangeal joint as described above probably secondary to calcific tendinitis or calcific capsulitis related to HADD. Labs 03/2023 MARTHA IFA negative CCP negative Uric acid 2.6 Assessment & Plan Assessment & Plan (1) Hydroxyapatite deposition disease of hand: Code(s): M11.049 - Hydroxyapatite deposition disease, unspecified hand Qualifiers: Laterality: right Qualified Code(s): M11.041 - Hydroxyapatite deposition disease, right hand Plan: This is a 58-year-old female who presents for evaluation of right 2nd MCP pain and swelling for the last 4 months. Comprehensive serology is negative. Clinical picture rather consistent with crystalline arthropathy likely hydroxy appetite deposition disease. Testing for secondary causes of CPPD arthritis was negative. Colchicine therapeutic trial was ineffective. With patient's consent the right 2nd MCP was injected with Kenalog in the office today. Advised patient that her blood sugar can increase and she should get home and check her blood sugar multiple times call the office or go to the emergency room if her blood sugar is above 250 Patient right 2nd MCP and right index are quite swollen and painful, she will not be able to perform her job duties at least for 2 weeks. Letter to employer provided. Advised patient to call the office if she does not get any relief in 2 weeks and will consider referral to a hand surgeon Plan I spent 28 minutes reviewing patient's chart, evaluating patient, counseling patient and documenting in the chart Orders: Orders AMB Joint Injection/Aspiration Today M11.049 - Hydroxyapatite deposition disease, unspecified hand Coding Level of Care Code Est Pt Level 4 (71383) Diagnoses Hydroxyapatite deposition disease of right hand M11.041 Laterality: right CPT Codes Coding - - Small joint: - Small Joint ([id number])
== END 2023-08-28 10:49 | disposition home or self-care (01) ==
PROVIDERS: PCP Internal Medicine; Visit Provider Student in an Organized Health Care Education/Training Program
DX: M11.0 Hydroxyapatite deposition disease (principal)
CPT/HCPCS: 20600; 99214

== ENCOUNTER → 2023-08-28 09:37 | Outpatient (BNVA) | payer MEDICAID, SELFPAY | PROVIDERS: PCP Internal Medicine; Visit Provider Student in an Organized Health Care Education/Training Program | DX: M11.0 Hydroxyapatite deposition disease (principal) | CPT/HCPCS: 20600; 99212 ==

== ENCOUNTER 2023-09-15 11:27 | Emergency (ER) | payer MEDICAID, SELFPAY ==
[2023-09-15 11:41] VITALS: BP 143/92; PULSE 97; RESP 20; TEMP 36.3; O2SAT 99; BMI 31.2
--- NOTE | 2023-09-15 11:46 | ED_ITS ---
HPI - General Adult General Chief complaint: Skin/Abscess/Foreign Body Stated complaint: Bleeding cut/sore in mouth? 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 She denies biting her tongue or any other known trauma. She does report that she grinds her teeth at night at times. Denies any discharge or drainage from the area. Denies any fevers. Denies any other symptoms. MD complaint: tongue pain Onset (ago): day(s) Location: mouth Severity: moderate Quality: burning Pain Consistency: constant Relieving factors: none Exacerbating factors: eating Associated symptoms: denies other symptoms Treatments prior to arrival: none Related Data Home Medications Medication Instructions Recorded Confirmed cholecalciferol (vitamin D3) 25 25 mcg PO DAILY 09/12/20 07/24/23 mcg (1,000 unit) capsule famotidine 20 mg tablet 20 mg PO BID 09/12/20 07/24/23 losartan 50 mg tablet 50 mg PO DAILY 09/12/20 07/24/23 sumatriptan succinate 50 mg tablet See Rx Instructions PO .COMPLEX 09/12/20 07/24/23 (Imitrex) PRN Migraine Headache albuterol sulfate 90 mcg/actuation 2 puff inhalation Q4H PRN 08/21/22 07/24/23 aerosol inhaler (ProAir HFA) metformin 1,000 mg tablet 1,000 mg PO BID 08/21/22 07/24/23 omeprazole 20 mg capsule,delayed 20 mg PO DAILY 08/21/22 07/24/23 release simethicone 125 mg chewable tablet 125 mg PO Q8H PRN gas 07/24/23 07/24/23 tramadol 50 mg tablet 50 mg PO Q6H PRN severe pain 08/28/23 Previous Rx's Medication Instructions Recorded dicyclomine 10 mg capsule 10 mg PO BID PRN abdominal 05/27/23 discomfort #90 caps acyclovir 400 mg tablet 400 mg PO TID 1 week #21 tabs 08/12/23 lidocaine HCl 2 % mucosal solution 1 appl mucous membrane TID PRN 09/15/23 (Lidocaine Viscous) mouth pain #100 mL Allergies Allergy/AdvReac Type Severity Reaction Status Date / Time No Known Allergies Allergy Verified 08/28/23 10:14 [No Known Allergies*] Review of Systems Review of Systems: As per HPI. Yes all other systems are reviewed and are negative Constitutional: Constitutional: Reports as per HPI [facility] Past Medical History Medical History Right knee pain Diabetes mellitus Gouty arthritis of left great toe HTN (hypertension) Migraine headache Asthma Encounter for screening for malignant neoplasm of colon Surgical History Hx of colonoscopy Family History Family History Father No problems noted. Mother No problems noted. 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 Blood pressure mildly elevated. Heart rate normal. Respiratory rate normal. Temperature normal. Oxygen saturation normal. Const General: cooperative, healthy appearing and no acute distress Orientation/consciousness: oriented to person, oriented to place, oriented to time and patient oriented x3 Limitations: no limitations HENMT Head: Yes normocephalic and Yes atraumatic Ears: external ears normal General nose exam: Normal external nose present Face and sinus: Yes face symmetric Mouth: Normal oral and palatal mucosa present, lip normal, oropharynx normal, moist mucous membranes and tongue abnormal (mild erythema to left lateral posterior tongue approx 1cm, no dng/discharge) not geographic, not lacerated, not ecchymotic, not ulcerated and without plaques Teeth and gingiva: dentition normal Throat: Yes posterior oropharynx normal, Yes uvula midline and No uvular edema Eyes Pupils: Equal, round and reactive pupils present Neck Neck: Yes normal visual inspection and Yes supple Resp Effort & Inspection: normal respiratory effort and able to speak in complete sentences Auscultation: clear to auscultation bilaterally Cardio Rate: regular rate Rhythm: regular rhythm Heart sounds: S1 normal heart sound present and S2 normal heart sound present Skin General skin exam: elasticity normal and turgor normal Neuro General: oriented to person, oriented to place, oriented to time, patient oriented x3, moves all extremities, no focal motor deficits and CN's II-XI intact bilaterally Cranial nerves: Yes Equal, round and reactive pupils present Cognition (Neuro): normal cognition Extrem General: Yes full ROM Psych Mental Status: mental status grossly normal Affect: normal affect Thought process: Normal thought process present Course Course Course Narrative: Rapid medical exam in triage pending full history physical, full evaluation and dispo from provider in the ER Patient complains of mouth sores x1 day and feeling unwell Medical Decision Making Medical Decision Making MDM Narrative: Patient is a 58-year-old female presenting to the emergency department with complaint of pain to left side of tongue which began yesterday. On exam patient is awake, A+Ox3, VS WNL, afebrile, normal neurological exam without focal deficits, physical exam findings as above. Given reported symptoms and physical exam findings, initial differential includes trauma, aphthous ulcer, HSV. No lesions, no evidence of oral candidiasis, leukoplakia. Will prescribe topical lidocaine p.r.n. Discussed with patient that symptoms should resolve on their own in a few days. Return precautions discussed at bedside. Instructed patient to follow-up with primary care provider. Patient verbalized understanding of an d agreement with plan. Differential Diagnosis Differential Diagnoses: The differential diagnosis associated with the presentation includes As per MDM. External Record Review External record reviewed: Inpatient record, Office record and Outpatient record Prescription Management I considered prescription management with: Pain Medication Discharge Plan Discharge Clinical Impression: Tongue pain Patient Disposition: Home, Self-Care Additional Instructions: Hoy lo evaluaron en el departamento de emergencias por dolor en el lado brian de la lengua. Es probable que esto se deba a que muerde accidentalmente el ?aiyana o a que rechina los dientes mientras duerme. El ?aiyana deber?a sanar por s? ratna en unos d?as. Le recetan un anest?sico t?tita que puede utilizar seg?n lo prescrito. Regrese al departamento de emergencias si experimenta un empeoramiento del dolor, hinchaz?n, drenaje o secreci?n, fiebre de 100.4 F o m?s, o cualquier otro s?ntoma preocupante. Roxy un seguimiento con rothman proveedor de atenci?n primaria. Prescriptions: New lidocaine HCl [Lidocaine Viscous] 2 % solution 1 appl mucous membrane TID PRN (Reason: mouth pain) Qty: 100 0RF Rx Instructions: Do not use more than 3 days. No Action acyclovir 400 mg tablet 400 mg PO TID 7 Days Qty: 21 0RF famotidine 20 mg tablet 20 mg PO BID sumatriptan succinate [Imitrex] 50 mg tablet See Rx Instructions PO .COMPLEX PRN (Reason: Migraine Headache) Rx Instructions: take 1 tab at onset of headache; if no relief may repeat 1 tab after at least 2 hrs; max = 4 tabs/24 hr PO losartan 50 mg tablet 50 mg PO DAILY cholecalciferol (vitamin D3) 25 mcg (1,000 unit) capsule 25 mcg PO DAILY albuterol sulfate [ProAir HFA] 90 mcg/actuation HFA aerosol inhaler 2 puff inhalation Q4H PRN metformin 1,000 mg tablet 1,000 mg PO BID omeprazole 20 mg capsule,delayed release(DR/EC) 20 mg PO DAILY tramadol 50 mg tablet 50 mg PO Q6H PRN (Reason: severe pain) simethicone 125 mg tablet,chewable 125 mg PO Q8H PRN (Reason: gas) dicyclomine 10 mg capsule 10 mg PO BID PRN (Reason: abdominal discomfort) Qty: 90 2RF Stand Alone Forms: Work/School Release Print Language: Argentine
== END 2023-09-15 14:38 | disposition home or self-care (01) ==
PROVIDERS: Emergency Provider Emergency Medicine; PCP Internal Medicine
DX: K14.6 Glossodynia (principal); E11.9 Type 2 diabetes mellitus without complications; I10 Essential (primary) hypertension; Z79.899 Other long term (current) drug therapy
CPT/HCPCS: 99282; 99283

== ENCOUNTER 2023-09-24 08:38 | Outpatient (REF) | payer MEDICAID, SELFPAY ==
[2023-09-24 11:31] LABS: Anion Gap 12 (12-20); Blood Urea Nitrogen 16 mg/dL (9-16); Calcium 9.9 mg/dL (8.4-10.2); Carbon Dioxide 28 mmol/L (22-29); Chloride 105 mmol/L (96-108); Cholesterol 151 mg/dL (<200); Estimated Glomerular Filt Rate > 60; Glucose Random 173 mg/dL (60-115); HDL Cholesterol 42 mg/dL (>40); LDL Cholesterol Calculated 92 mg/dL (<100); Potassium 4.3 mmol/L (3.3-5.1); Sodium 141 mmol/L (135-145); Triglycerides 85 mg/dL (<150)
[2023-09-24 12:31] LABS: Creatinine Urine 286.17 mg/dL; Microalbum/Creatinine Ratio Ur 6.6 ug/mg cr (<30)
== END 2023-09-24 08:39 | disposition home or self-care (01) ==
LOC: HO.HHCL 08:38
PROVIDERS: Visit Provider Internal Medicine
DX: E11.9 Type 2 diabetes mellitus without complications (principal)
CPT/HCPCS: 36415; 80048; 80061; 82043; 82570

== ENCOUNTER 2023-09-26 12:50 | Emergency (ER) | payer MEDICAID, SELFPAY ==
[2023-09-26 13:08] VITALS: BP 132/78; PULSE 89; RESP 18; TEMP 36.2; O2SAT 99; BMI 28.3
--- NOTE | 2023-09-26 13:09 | ED_ITS ---
HPI - General Adult General Chief complaint: General Medical Stated complaint: pain in mouth Time Seen by Provider: 09/26/23 13:12 Source: patient Mode of arrival: ambulatory Limitations: no limitations History of Present Illness HPI narrative: 58-year-old female presents with sensation that she has a bump on her tongue and slight sore throat this has been going on for 2 weeks states that she is very uncomfortable. She thinks she might have a little pocket of pus back there however she is not visualized anything. Patient very nervous about this. Denies fevers, chills, chest pain, shortness of breath, changes in voice, difficulty swallowing, nausea, vomiting, abdominal pain. No recent dental work Related Data Home Medications Medication Instructions Recorded Confirmed cholecalciferol (vitamin D3) 25 25 mcg PO DAILY 09/12/20 07/24/23 mcg (1,000 unit) capsule famotidine 20 mg tablet 20 mg PO BID 09/12/20 07/24/23 losartan 50 mg tablet 50 mg PO DAILY 09/12/20 07/24/23 sumatriptan succinate 50 mg tablet See Rx Instructions PO .COMPLEX 09/12/20 07/24/23 (Imitrex) PRN Migraine Headache albuterol sulfate 90 mcg/actuation 2 puff inhalation Q4H PRN 08/21/22 07/24/23 aerosol inhaler (ProAir HFA) metformin 1,000 mg tablet 1,000 mg PO BID 08/21/22 07/24/23 omeprazole 20 mg capsule,delayed 20 mg PO DAILY 08/21/22 07/24/23 release simethicone 125 mg chewable tablet 125 mg PO Q8H PRN gas 07/24/23 07/24/23 tramadol 50 mg tablet 50 mg PO Q6H PRN severe pain 08/28/23 Previous Rx's Medication Instructions Recorded dicyclomine 10 mg capsule 10 mg PO BID PRN abdominal 05/27/23 discomfort #90 caps acyclovir 400 mg tablet 400 mg PO TID 1 week #21 tabs 08/12/23 lidocaine HCl 2 % mucosal solution 1 appl mucous membrane TID PRN 09/15/23 (Lidocaine Viscous) mouth pain #100 mL Magic Mouthwash 5 ml PO TID #240 mL 09/26/23 Diphen/Lido/Antacid 1:1:1 240 mL suspension Allergies Allergy/AdvReac Type Severity Reaction Status Date / Time No Known Allergies Allergy Verified 09/26/23 13:07 [No Known Allergies*] Review of Systems Review of Systems: Constitutional : No Weight loss, No Fever, No Chills, No Fatigue, No Malaise ENT/Mouth : No sore throat, No Rhinorrhea Eyes: No Eye Pain, No Swelling, No Redness Cardiovascular : No Chest Pain, No SOB, No Dyspnea on Exertion, No Orthopnea, No Edema, No Palpitations Respiratory : No Cough, No Sputum, No Wheezing Gastrointestinal : No Nausea, No Vomiting, No Diarrhea, No Constipation, No abdominal Pain, No Hematochezia, No Melena Genitourinary : No Dysuria, No Urinary Frequency, No Hematuria, Musculoskeletal : No joint pain, No Myalgias, No Joint Swelling Skin : No Skin Lesions, No rash Neuro : No Weakness, No Numbness, No Dizziness, No Headache Psych : No Anxiety/Panic, No Depression All other systems reviewed and are negative Yes all other systems are reviewed and are negative [facility] Past Medical History Attestation statement: The following information was validated with the patient. Source: old records reviewed and nursing notes reviewed Medical History Right knee pain Diabetes mellitus Gouty arthritis of left great toe HTN (hypertension) Migraine headache Asthma Encounter for screening for malignant neoplasm of colon Surgical History Hx of colonoscopy Family History Family History Father No problems noted. Mother No problems noted. 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 Oriented X3.? No acute distress.? Head: Normocephalic, atraumatic, no step-offs or deformities Eyes: Pupils equal, round and reactive to light.? ENT: Pharynx normal.? Uvula midline. Normal tongue, no abscesses. No retropharyngeal, peritonsillar abscess,. No signs of threat to airway. Speaking in full sentences controlling secretions well Neck: Normal inspection.? Neck supple.? Neck, cervical, submental submandibular lymphadenopathy. CVS: Normal heart rate and rhythm.? Pulses normal.? Respiratory: No respiratory distress.? Breath sounds normal.? Skin: Skin warm and dry.? Normal skin color.? Normal skin turgor.? Extremities: No lower extremity edema.? No calf ttp. 5/5 strength to bilateral upper and lower extremities Neuro: Oriented X 3.? No motor deficit.? No sensory deficit. CN 2-12 intact Course Course Course Narrative: Patient complains of left-sided mouth pain on left side for over 2 weeks There is painful bump on the tongue This rapid medical exam in triage bending full evaluation by ER provider for history physical, review of results and disposition Medical Decision Making Medical Decision Making [facility] Narrative: 1320 The 62-year-old female presents with sore throat and tongue pain x2 weeks Physical exam benign This is likely a apthous ulcer versus viral illness. Unlikely peritonsillar retropharyngeal abscess, no signs of lesions lumps or masses. No signs of airway compromise. No signs of epiglottitis. Plan will give viscous lidocaine. Should follow up with dentist. Educated patient on diagnosis and treatment plan, answered all question, patient verbalizes understanding. At this time patient will be discharged home, advised to return with new or worsening symptoms. Educated on worrisome signs and symptoms and when to return. At this time I feel comfortable discharge home. Differential Diagnosis Differential Diagnoses: The differential diagnosis associated with the presentation includes This is likely a apthous ulcer versus viral illness. Unlikely peritonsillar retropharyngeal abscess, no signs of lesions lumps or masses. No signs of airway compromise. No signs of epiglottitis. Admission/Observation Consideration of admission/observation: Escalation of care including admission/observation considered unlikely Prescription Management I considered prescription management with: Other (magic mouth wash ) Critical Care Time Critical Care Time Critical Care Time: No Discharge Plan Discharge Clinical Impression: Tongue pain, Sore throat Patient Disposition: Home, Self-Care Additional Instructions: Take your medications as prescribed. If you were prescribed antibiotics today, it is important that you take your medication to their entirety, do not skip any doses, do not finish them early. Follow-up with your primary care provider this week. Return to the emergency department with new or worsening symptoms. Such as fevers, chills, chest pain, shortness of breath, nausea, vomiting, dizziness, headache, vision changes, lethargy In case of emergency call 911 Prescriptions: New Magic Mouthwash Diphen/Lido/Antacid 1:1:1 240 mL suspension 5 ml PO TID Qty: 240 0RF Rx Instructions: Lidocaine Viscous 2 % 80mL; diphenhydramine 12.5 mg/5 mL 80mL; aluminum-mag hydrox-simeth [id number]/5mL 80mL Swish and spit, do not swallow No Action acyclovir 400 mg tablet 400 mg PO TID 7 Days Qty: 21 0RF lidocaine HCl [Lidocaine Viscous] 2 % solution 1 appl mucous membrane TID PRN (Reason: mouth pain) Qty: 100 0RF Rx Instructions: Do not use more than 3 days. famotidine 20 mg tablet 20 mg PO BID sumatriptan succinate [Imitrex] 50 mg tablet See Rx Instructions PO .COMPLEX PRN (Reason: Migraine Headache) Rx Instructions: take 1 tab at onset of headache; if no relief may repeat 1 tab after at least 2 hrs; max = 4 tabs/24 hr PO losartan 50 mg tablet 50 mg PO DAILY cholecalciferol (vitamin D3) 25 mcg (1,000 unit) capsule 25 mcg PO DAILY albuterol sulfate [ProAir HFA] 90 mcg/actuation HFA aerosol inhaler 2 puff inhalation Q4H PRN metformin 1,000 mg tablet 1,000 mg PO BID omeprazole 20 mg capsule,delayed release(DR/EC) 20 mg PO DAILY tramadol 50 mg tablet 50 mg PO Q6H PRN (Reason: severe pain) simethicone 125 mg tablet,chewable 125 mg PO Q8H PRN (Reason: gas) dicyclomine 10 mg capsule 10 mg PO BID PRN (Reason: abdominal discomfort) Qty: 90 2RF Referrals: Matilda Domínguez MD [Physician] - 1 day Stand Alone Forms: Work/School Release
[2023-09-26] MEDS: Lidocaine HCl Viscous 2 % 15 ML SOLUTION MUCOUS MEM (13:24)
--- NOTE | 2023-09-26 13:33 | PC.NURSE ---
this designer writer and provider at bedside to assess inside pt mouth, no abscess noted, Lido given, d/c placed
[2023-09-26 13:39] LABS: IDNOW Serial# 08D9AD1C; Strep A Nucleic Acid Negative (Negative)
== END 2023-09-26 13:34 | disposition home or self-care (01) ==
LOC: HO.ED 13:22
PROVIDERS: Physician Assistant; Emergency Provider Emergency Medicine; PCP Internal Medicine
DX: J02.9 Acute pharyngitis, unspecified (principal); K14.6 Glossodynia; I10 Essential (primary) hypertension; E11.9 Type 2 diabetes mellitus without complications
CPT/HCPCS: 87651; 99283

== ENCOUNTER 2023-10-23 15:43 | Emergency (ER) | payer MEDICAID, SELFPAY ==
[2023-10-23 15:51] VITALS: BP 113/61; PULSE 116; RESP 18; TEMP 37.1; O2SAT 100; BMI 29.3
--- NOTE | 2023-10-23 15:52 | ED.DENTAL ---
HPI - Dental/Oral General Chief complaint: Dental/Oral Stated complaint: tooth pain Time Seen by Provider: 10/23/23 17:45 Source: patient, RN notes reviewed and old records reviewed Mode of arrival: ambulatory History of Present Illness HPI Narrative: 58-year-old female with a past history of diabetes, arthritis, HTN, asthma, migraines, presenting to the ED complaining of burning pain to tongue x1 month. Patient admits she has been seen and treated in our ED multiple times for similar symptoms, given mouth washes with some relief. Denies known injury, SOB, difficulty or inability to swallow, fever/chills, lesions Related Data Home Medications Medication Instructions Recorded Confirmed cholecalciferol (vitamin D3) 25 25 mcg PO DAILY 09/12/20 07/24/23 mcg (1,000 unit) capsule famotidine 20 mg tablet 20 mg PO BID 09/12/20 07/24/23 losartan 50 mg tablet 50 mg PO DAILY 09/12/20 07/24/23 sumatriptan succinate 50 mg tablet See Rx Instructions PO .COMPLEX 09/12/20 07/24/23 (Imitrex) PRN Migraine Headache albuterol sulfate 90 mcg/actuation 2 puff inhalation Q4H PRN 08/21/22 07/24/23 aerosol inhaler (ProAir HFA) metformin 1,000 mg tablet 1,000 mg PO BID 08/21/22 07/24/23 omeprazole 20 mg capsule,delayed 20 mg PO DAILY 08/21/22 07/24/23 release simethicone 125 mg chewable tablet 125 mg PO Q8H PRN gas 07/24/23 07/24/23 tramadol 50 mg tablet 50 mg PO Q6H PRN severe pain 08/28/23 Previous Rx's Medication Instructions Recorded dicyclomine 10 mg capsule 10 mg PO BID PRN abdominal 05/27/23 discomfort #90 caps acyclovir 400 mg tablet 400 mg PO TID 1 week #21 tabs 08/12/23 lidocaine HCl 2 % mucosal solution 1 appl mucous membrane TID PRN 09/15/23 (Lidocaine Viscous) mouth pain #100 mL Magic Mouthwash 5 ml PO TID #240 mL 09/26/23 Diphen/Lido/Antacid 1:1:1 240 mL suspension lidocaine HCl 2 % mucosal solution 1 appl mucous membrane TID PRN 10/23/23 (Lidocaine Viscous) pain #100 mL Allergies Allergy/AdvReac Type Severity Reaction Status Date / Time No Known Allergies Allergy Verified 10/23/23 15:57 [No Known Allergies*] Review of Systems Review of Systems: Constitutional: No Fever, No Chills ENT/Mouth: +tongue pain, No Ear Pain, No Nasal Congestion, No Hoarseness, No sore throat, No Rhinorrhea, No Swallowing Difficulty Cardiovascular: No Chest Pain, No SOB Respiratory: No Cough, No Sputum, No Wheezing Gastrointestinal: No Nausea, No Vomiting, No Abdominal pain Musculoskeletal: No joint pain, No Myalgias, No Joint Swelling Skin: No Skin Lesions, No rash Neuro: No Weakness Yes all other systems are reviewed and are negative Constitutional: Constitutional: Reports as per [facility] Past Medical History Attestation statement: The following information was validated with the patient. Source: old records reviewed Medical History Right knee pain Diabetes mellitus Gouty arthritis of left great toe HTN (hypertension) Migraine headache Asthma Encounter for screening for malignant neoplasm of colon Surgical History Hx of colonoscopy Family History Family History Father No problems noted. Mother No problems noted. 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 Talking in complete sentences, no respiratory distress, no drooling. Handling secretions. Mild tenderness to palpation of tongue. Head: Yes normal to inspection and Yes atraumatic Ears: hearing grossly normal bilaterally and external ears normal General nose exam: Normal external nose present Face and sinus: Yes normal facial exam Mouth: tongue normal, no drooling, no muffled voice, tongue abnormal, no trismus and No restricted motion Throat: Yes posterior oropharynx normal, Yes tonsils normal, Yes uvula midline, No peritonsillar mass, No uvula laterally displaced and No uvular edema Eyes: General: appearance normal, both eyes and all related structures EOM: EOMs intact bilaterally Neck: Neck: Yes normal visual inspection, Yes full ROM, Yes no lymphadenopathy and Yes no meningeal signs Resp: Effort & Inspection: normal respiratory effort, no grunting, not labored, no respiratory distress and no stridor Cardio: Rate: regular rate Skin: Rashes: no rashes Wounds: no wounds Neuro: General: patient oriented x3, tone normal and no meningeal signs Cranial nerves: Yes CN's II-XII intact bilaterally Gait exam (Neuro): Normal gait present Extrem: General: Yes normal to inspection Course Course Course Narrative: This is an RME: Additional HPI, ROS, PE not included below will be deferred to primary provider. Patient is a 58-year-old female who is department for evaluation oral pain, describes a severe burn a sensation beneath her tongue, pain to the tongue. She states she has been seen here in the past with similar symptoms. She is noted to be tachycardic; 120, afebrile. Attempted to palpate sublingual region she is unable to tolerate light palpation due to pain, does not appear edematous, firm or indurated. Plan: Labs -labs reassuring Results discussed with patient including worrisome signs and symptoms and strict return precautions, and when to return to the emergency department. They verbalized understanding and feel safe for discharge at this time. Medical Decision Making Medical Decision Making MDM Narrative: 58-year-old female with a past history of diabetes, arthritis, HTN, asthma, migraines, presenting to the ED complaining of burning pain to tongue x1 month. On exam initially tachycardic likely from pain, anxious, fidgety, physical exam as above with unremarkable exam other than some mild tongue tenderness. No appreciable abnormality/lesions or swelling. Handling secretions, talking complete sentences. No evidence of BUTTER PRINTER/retropharyngeal abscess, strep pharyngitis. Lower suspicion for HSV/STI, abscess, cellulitis, Kavon's angina or candidiasis Plan: Discussed lidocaine, ENT follow-up Please refer to course for remaining clinical decision making, interpretation of labs/imaging results, and discussions with consultants and/or family members. Results discussed with patient including worrisome signs and symptoms and strict return precautions, and when to return to the emergency department. They verbalized understanding and feel safe for discharge at this time. Differential Diagnosis Differential Diagnoses: The differential diagnosis associated with the presentation includes As above Lab Data MDM Lab Attestation statement: I reviewed the patient's lab results. 10/23/23 16:16 10/23/23 16:16 Labs: Lab Results 10/23/23 Range/Units 16:16 WBC 7.1 (4.8-10.8) X10*3/uL RBC 4.08 L (4.20-5.50) X10*6/uL Hgb 12.8 (12.0-16.0) g/dl Hct 38.0 (37.0-47.0) % MCV 93.1 (80.0-98.0) fL MCH 31.4 (27.0-33.0) pg MCHC 33.7 (31.0-35.0) g/dl RDW 13.2 (11.0-16.0) % Plt Count 331 (160-400) X10*3/uL MPV 9.3 L (9.4-12.3) fL Immature Gran % (Auto) 0.1 (0.0-0.4) % Neut % (Auto) 48.1 (45-73) % Lymph % (Auto) 45.3 H (20-40) % Hoke % (Auto) 4.8 (2-11) % Eos % (Auto) 1.1 (0-4) % Baso % (Auto) 0.6 (0-2) % Lymph # (Auto) 3.2 (1.2-4.9) X10*3/uL Hoke # (Auto) 0.3 (0.1-1.2) X10*3/uL Eos # (Auto) 0.1 (0.0-0.4) X10*3/uL Baso # (Auto) 0.0 (0.0-0.2) X10*3/uL Abs Immat Gran (auto) 0.01 (0.00-0.03) X10*3/uL Absolute Neuts (auto) 3.4 (2.0-8.3) x10*3/uL Absolute Nucleated RBC 0.000 (0.0-0.012) X10*3/uL Nucleated RBC % (auto) 0.0 (0.0-0.2) /100WBC Sodium 143 (135-145) mmol/L Potassium 3.5 (3.3-5.1) mmol/L Chloride 109 H (96-108) mmol/L Carbon Dioxide 25 (22-29) mmol/L Anion Gap 13 (12-20) BUN 13 (9-16) mg/dL Creatinine 0.83 (0.5-1.4) mg/dL Estim Creat Clear Calc 65.1 Estimated GFR > 60 Random Glucose 182 H (60-115) mg/dL Calcium 9.5 (8.4-10.2) mg/dL Magnesium 1.8 (1.6-2.6) mg/dL Total Bilirubin 0.6 (0.0-1.0) mg/dL AST 15 (5-31) U/L ALT 12 (0-31) U/L Alkaline Phosphatase 75 (39-117) U/L Total Protein 7.4 (6.5-8.0) g/dL Albumin 4.2 (3.5-5.0) g/dL Vitamin B12 394 (200-900) pg/mL Folate 11.1 (> or = 4.0) ng/mL External Record Review External record reviewed: Inpatient record, Office record, Outpatient record, Prior outpatient labs, Prior outpatient radiology, Primary care record and Outside ED record Tests considered The following testing was considered but not selected: As above Prescription Management I considered prescription management with: Pain Medication and Antibiotic Discharge Plan Discharge Clinical Impression: Painful tongue Patient Disposition: Home, Self-Care Additional Instructions: You need to follow-up with any ENT specialist Use viscous lidocaine as needed to numb your tongue If area begins look infected, is read you develop lesions, swelling/redness, difficulty or inability to swallow return to the ED Es necesario realizar un seguimiento con cualquier otorrinolaring?logo. Use lidoca?na viscosa seg?n sea necesario para adormecer la lengua. Si el ?aiyana comienza a verse infectada, se jarod que desarrolla lesiones, hinchaz?n/enrojecimiento, dificultad o incapacidad para tragar, regrese al servicio de urgencias. Prescriptions: New lidocaine HCl [Lidocaine Viscous] 2 % solution 1 appl mucous membrane TID PRN (Reason: pain) Qty: 100 0RF No Action acyclovir 400 mg tablet 400 mg PO TID 7 Days Qty: 21 0RF lidocaine HCl [Lidocaine Viscous] 2 % solution 1 appl mucous membrane TID PRN (Reason: mouth pain) Qty: 100 0RF Rx Instructions: Do not use more than 3 days. Magic Mouthwash Diphen/Lido/Antacid 1:1:1 240 mL suspension 5 ml PO TID Qty: 240 0RF Rx Instructions: Lidocaine Viscous 2 % 80mL; diphenhydramine 12.5 mg/5 mL 80mL; aluminum-mag hydrox-simeth [id number]/5mL 80mL Swish and spit, do not swallow famotidine 20 mg tablet 20 mg PO BID sumatriptan succinate [Imitrex] 50 mg tablet See Rx Instructions PO .COMPLEX PRN (Reason: Migraine Headache) Rx Instructions: take 1 tab at onset of headache; if no relief may repeat 1 tab after at least 2 hrs; max = 4 tabs/24 hr PO losartan 50 mg tablet 50 mg PO DAILY cholecalciferol (vitamin D3) 25 mcg (1,000 unit) capsule 25 mcg PO DAILY albuterol sulfate [ProAir HFA] 90 mcg/actuation HFA aerosol inhaler 2 puff inhalation Q4H PRN metformin 1,000 mg tablet 1,000 mg PO BID omeprazole 20 mg capsule,delayed release(DR/EC) 20 mg PO DAILY tramadol 50 mg tablet 50 mg PO Q6H PRN (Reason: severe pain) simethicone 125 mg tablet,chewable 125 mg PO Q8H PRN (Reason: gas) dicyclomine 10 mg capsule 10 mg PO BID PRN (Reason: abdominal discomfort) Qty: 90 2RF Referrals: Carmen Savage, DNP, HOSPITAL UNIT CLERK [Nurse Practitioner] - Erika Cruz PA [Physician Tester [employer]] - Domo Devi MD [Physician] - Gifty Max PA-C [Physician Tester [employer]] - Rell Calvo [Physician] - 3 days Print Language: Yoruba
--- NOTE | 2023-10-23 15:59 | ECG_ITS ---
Test Reason : TACHYCARDIA Blood Pressure : / mmHG Vent. Rate : 110 BPM Atrial Rate : 110 BPM P-R Int : 144 ms QRS Dur : 074 ms QT Int : 316 ms P-R-T Axes : 058 068 028 degrees QTc Int : 427 ms Sinus tachycardia T wave abnormality, consider inferior ischemia Abnormal ECG When compared with ECG of 11-APR-2015 09:58, No significant change was found Referred By: Ayanna Hankins Electronically Signed By:ALVARADO HARRIS MD
[2023-10-23 16:27] LABS: MANUAL DIFF FLAG NO
[2023-10-23 16:33] LABS: Basophils Percent Auto 0.6 % (0-2); Eosinophils Absolute Auto 0.1 X10*3/uL (0.0-0.4); Eosinophils Percent Auto 1.1 % (0-4); Hemoglobin 12.8 g/dl (12.0-16.0); Imm Gran Abs Auto 0.01 X10*3/uL (0.00-0.03); Imm Gran Pct Auto 0.1 % (0.0-0.4); Lymphocytes Absolute Auto 3.2 X10*3/uL (1.2-4.9); Lymphocytes Percent Auto 45.3 % (20-40); Mean Corpuscular HGB Conc 33.7 g/dl (31.0-35.0); Mean Corpuscular Hemoglobin 31.4 pg (27.0-33.0); Mean Corpuscular Volume 93.1 fL (80.0-98.0); Mean Platelet Volume 9.3 fL (9.4-12.3); Monocytes Absolute Auto 0.3 X10*3/uL (0.1-1.2); Monocytes Percent Auto 4.8 % (2-11); Neutrophils Absolute Auto 3.4 x10*3/uL (2.0-8.3); Neutrophils Percent Auto 48.1 % (45-73); Platelet Count 331 X10*3/uL (160-400); Red Blood Count 4.08 X10*6/uL (4.20-5.50); Red Cell Distribution Width 13.2 % (11.0-16.0); White Blood Count 7.1 X10*3/uL (4.8-10.8)
[2023-10-23 16:51] LABS: Alanine Aminotransferase 12 U/L (0-31); Albumin Level 4.2 g/dL (3.5-5.0); Alkaline Phosphatase 75 U/L (39-117); Anion Gap 13 (12-20); Aspartate Amino Transferase 15 U/L (5-31); Bilirubin Total 0.6 mg/dL (0.0-1.0); Blood Urea Nitrogen 13 mg/dL (9-16); Calcium 9.5 mg/dL (8.4-10.2); Carbon Dioxide 25 mmol/L (22-29); Chloride 109 mmol/L (96-108); Creatinine Clr Calc Pharmacy 65.1; Estimated Glomerular Filt Rate > 60; Glucose Random 182 mg/dL (60-115); Magnesium 1.8 mg/dL (1.6-2.6); Potassium 3.5 mmol/L (3.3-5.1); Sodium 143 mmol/L (135-145); Total Protein 7.4 g/dL (6.5-8.0)
[2023-10-23 17:27] LABS: Folate 11.1 ng/mL (> or = 4.0); Vitamin B12 394 pg/mL (200-900)
[2023-10-23 18:03] VITALS: BP 143/79; PULSE 100; RESP 18; TEMP 37; O2SAT 99
[2023-10-23] MEDS: Lidocaine HCl Viscous 2 % 15 ML SOLUTION 5 ML MUCOUS MEM (18:12)
--- NOTE | 2023-10-23 18:19 | PC.NURSE ---
did not assess dental as problem was not in the teeth but in the mouth are per PA
== END 2023-10-23 18:21 | disposition home or self-care (01) ==
PROVIDERS: Nurse Practitioner Family; Emergency Provider Emergency Medicine; PCP Internal Medicine
DX: K14.6 Glossodynia (principal); K08.89 Other specified disorders of teeth and supporting structures; R00.0 Tachycardia, unspecified; Z79.899 Other long term (current) drug therapy
CPT/HCPCS: 36415; 80053; 82607; 82746; 83735; 85025; 93005; 99283; 99284

== ENCOUNTER → 2023-10-23 15:59 | Outpatient (BNV) | payer MEDICAID, SELFPAY | PROVIDERS: Emergency Provider Emergency Medicine; PCP Internal Medicine; Visit Provider Internal Medicine Cardiovascular Disease | DX: R00.0 Tachycardia, unspecified (principal); R94.31 Abnormal electrocardiogram [ECG] [EKG] | CPT/HCPCS: 93010 ==

== ENCOUNTER 2023-11-25 10:00 | Outpatient (RCR) | payer MEDICAID, SELFPAY ==
--- NOTE | 2023-11-03 13:33 | MHC.OT.EP ---
[address] [phone] Occupational Therapy Plan of Care Patient Name: Nita Mujica Date of Evaluation: 11/03/23 Diagnosis: Right index finger pain Pain Location: Right index PIP and PP 5-10 Pain Score: 5 Pain Scale Used: Numeric (0 - 10) Aggravating Factors: Bending and using right index Alleviating Factors: Assessment: Pt is a 58 yo female with worsening right index finger pain ,stiffness and limited use due to OA. 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 Frequency and Duration: The patient will be seen 2 x wk x 6 wks Short Term Goals: Indep with thermal modalities for pain Indep with HEP Right MCPj flex to 60 deg Right PIPj flex to> 75 deg Use of right index finger with FDT and 9 Hole peg test to [facility] Goals: Right index finger 1.5 cm to DPC Right hand pediatric ophthalmologist > 20 lb Right tip pinch to > 5 lb Use of right index finger with functional activities ie buttons, tying shoe, grasping steering wheel, folding clothes Treatment Plan: Therapeutic Exercise Therapeutic Activity Home Exercise Program Patient Education ADL Training Paraffin MHP Soft Tissue Mobilization Electronically Signed By: Mana Zamora OT CHT CLT Please Sign and return to therapist. Thank you once again for your referral.
== END 2024-02-04 14:24 | disposition home or self-care (01) ==
LOC: HO.OT 10:00
PROVIDERS: PCP Internal Medicine; Visit Provider Internal Medicine
DX: M65.9 Synovitis and tenosynovitis, unspecified (principal)
CPT/HCPCS: 97110; 97166

== ENCOUNTER 2023-12-09 11:07 | Outpatient (REF) | payer MEDICAID, SELFPAY ==
[2023-12-09 13:48] LABS: Basophils Percent Auto 0.7 % (0-2); Eosinophils Absolute Auto 0.1 X10*3/uL (0.0-0.4); Eosinophils Percent Auto 1.6 % (0-4); Hematocrit 39.4 % (37.0-47.0); Imm Gran Abs Auto 0.01 X10*3/uL (0.00-0.03); Imm Gran Pct Auto 0.2 % (0.0-0.4); Lymphocytes Absolute Auto 2.6 X10*3/uL (1.2-4.9); MANUAL DIFF FLAG NO; Mean Corpuscular Hemoglobin 31.6 pg (27.0-33.0); Mean Corpuscular Volume 95.6 fL (80.0-98.0); Monocytes Absolute Auto 0.4 X10*3/uL (0.1-1.2); Monocytes Percent Auto 6.9 % (2-11); Neutrophils Absolute Auto 2.3 x10*3/uL (2.0-8.3); Neutrophils Percent Auto 42.6 % (45-73); Platelet Count 332 X10*3/uL (160-400); Red Blood Count 4.12 X10*6/uL (4.20-5.50); Red Cell Distribution Width 13.1 % (11.0-16.0); White Blood Count 5.5 X10*3/uL (4.8-10.8)
[2023-12-09 14:04] LABS: Alanine Aminotransferase 13 U/L (0-31); Albumin Level 4.3 g/dL (3.5-5.0); Alkaline Phosphatase 88 U/L (39-117); Anion Gap 13 (12-20); Aspartate Amino Transferase 15 U/L (5-31); Bilirubin Total 0.5 mg/dL (0.0-1.0); Blood Urea Nitrogen 13 mg/dL (9-16); Calcium 9.9 mg/dL (8.4-10.2); Carbon Dioxide 27 mmol/L (22-29); Chloride 105 mmol/L (96-108); Estimated Glomerular Filt Rate > 60; Glucose Random 164 mg/dL (60-115); Potassium 4.6 mmol/L (3.3-5.1); Sodium 140 mmol/L (135-145); Total Protein 7.7 g/dL (6.5-8.0)
== END 2023-12-09 11:08 | disposition home or self-care (01) ==
LOC: HO.HHCL 11:07
PROVIDERS: Visit Provider Internal Medicine
DX: R05.9 Cough, unspecified (principal)
CPT/HCPCS: 36415; 80053; 85025

== ENCOUNTER 2023-12-19 14:42 | Emergency (ER) | payer MEDICAID, SELFPAY ==
--- NOTE | ~2023-12-19 | CT_ITS ---
EXAMINATION: CT ABDOMEN AND PELVIS WITHOUT CONTRAST CLINICAL INFORMATION: Lower abdominal pain COMPARISON: CT abdomen and pelvis 01/29/2023 TECHNIQUE: Multidetector volumetric imaging was performed from the superior aspect of the liver through the pubic symphysis. Sagittal and coronal reformatted images were obtained on the technologist's workstation. This CT examination was performed using dose optimization techniques as appropriate, variously including the following: *Automated exposure control *Adjustment of mA and/or kV according to patient size (this includes techniques or standardized protocols for targeted exams where dose is matched to indication/reason for exam; i.e. extremities or head) *Use of iterative reconstruction technique DLP: 363 mGy-cm FINDINGS: LUNG BASES: The visualized lung bases are unremarkable. LIVER, GALLBLADDER, AND BILIARY TREE: The liver is normal in size, shape, and attenuation. No focal hepatic lesion or biliary ductal dilatation is present. The gallbladder is unremarkable with no evidence of radiopaque gallstones, gallbladder wall thickening, or obvious pericholecystic inflammatory changes. PANCREAS: Unremarkable. SPLEEN: Unremarkable. ADRENAL GLANDS: Unremarkable. KIDNEYS AND URETERS: The kidneys are normal in size, shape, and attenuation. No hydronephrosis, hydroureter, or calculi seen. No perinephric stranding. BLADDER: Unremarkable. GASTROINTESTINAL TRACT: There is scattered stool seen throughout the colon without distention. Ileocecal junction the small bowel loops are normal caliber. Appendix is not seen with certainty. No inflammatory process seen. ABDOMINAL WALL: No significant hernia is appreciated. LYMPH NODES: Normal. VASCULAR: Unremarkable. PELVIC VISCERA: The uterus is anteverted. There is no free fluid or free air. No abnormal pelvic lymph nodes. OSSEOUS STRUCTURES: No aggressive lytic or sclerotic process seen. There is mild ventral spondylosis dorsal spine. CT/CT abdomen pelvis wo IV con IMPRESSION: 1. No acute intra-abdominal process seen. 2. Mild constipation. Fleischner guidelines were followed.
[2023-12-19 14:47] VITALS: BP 124/66; PULSE 106; RESP 16; TEMP 36.7; O2SAT 98; BMI 29.2
--- NOTE | 2023-12-19 14:48 | ED.GENADULT ---
HPI - General Adult General Chief complaint: Abdominal Pain Stated complaint: abd pain Time Seen by Provider: 12/19/23 18:14 Source: patient and prick stitcher Mode of arrival: ambulatory Limitations: language barrier History of Present Illness HPI narrative: Patient is a 58 year old assigned female at with a history of DM and HTN presenting to the emergency department today with abdominal pain and left upper back pain. Patient states that she has had lower abdominal pain for months and intermittent left upper back pain with movement. Patient denies any dizziness, lightheadedness, nausea, vomiting, fever, chills, blurry vision, double vision, loss of vision, chest pain, difficulty breathing, shortness of breath,night sweats, pain with urination, increased urinary frequency, increased urinary urgency, blood in her urine or stool, syncope or a near syncopal episode, recent trauma or falls, bowel incontinence, bladder incontinence, bowel retention, bladder retention, or any other complaints at this time. Onset (ago): month(s) Location: abdomen Severity: mild Severity scale (1-10): 4 Pain Consistency: intermittent Relieving factors: none Exacerbating factors: none Associated symptoms: denies other symptoms Treatments prior to arrival: none Related Data Home Medications Medication Instructions Recorded Confirmed cholecalciferol (vitamin D3) 25 25 mcg PO DAILY 09/12/20 07/24/23 mcg (1,000 unit) capsule famotidine 20 mg tablet 20 mg PO BID 09/12/20 07/24/23 losartan 50 mg tablet 50 mg PO DAILY 09/12/20 07/24/23 sumatriptan succinate 50 mg tablet See Rx Instructions PO .COMPLEX 09/12/20 07/24/23 (Imitrex) PRN Migraine Headache albuterol sulfate 90 mcg/actuation 2 puff inhalation Q4H PRN 08/21/22 07/24/23 aerosol inhaler (ProAir HFA) metformin 1,000 mg tablet 1,000 mg PO BID 08/21/22 07/24/23 omeprazole 20 mg capsule,delayed 20 mg PO DAILY 08/21/22 07/24/23 release simethicone 125 mg chewable tablet 125 mg PO Q8H PRN gas 07/24/23 07/24/23 tramadol 50 mg tablet 50 mg PO Q6H PRN severe pain 08/28/23 Previous Rx's Medication Instructions Recorded dicyclomine 10 mg capsule 10 mg PO BID PRN abdominal 05/27/23 discomfort #90 caps acyclovir 400 mg tablet 400 mg PO TID 1 week #21 tabs 08/12/23 lidocaine HCl 2 % mucosal solution 1 appl mucous membrane TID PRN 09/15/23 (Lidocaine Viscous) mouth pain #100 mL Magic Mouthwash 5 ml PO TID #240 mL 09/26/23 Diphen/Lido/Antacid 1:1:1 240 mL suspension lidocaine HCl 2 % mucosal solution 1 appl mucous membrane TID PRN 10/23/23 (Lidocaine Viscous) pain #100 mL cyclobenzaprine 5 mg tablet 5 mg PO TID PRN muscle spasm 7 12/19/23 days #21 tabs magnesium citrate 37.5 ml PO BID PRN constipation 12/19/23 #296 mL Allergies Allergy/AdvReac Type Severity Reaction Status Date / Time No Known Allergies Allergy Verified 12/19/23 14:47 [No Known Allergies*] Review of Systems Constitutional: Constitutional: Reports no additional constitutional complaints, Denies chills, Denies fever(s) and Denies night sweats Eyes: Eyes: Reports no additional eye complaints, Denies blurry vision, Denies change in vision, Denies diplopia, Denies eye discharge, Denies loss of vision and Denies eye pain ENT: Denies dizziness Cardiovascular: Cardiovascular: Reports no additional cardiovascular complaints, Denies chest pain, Denies lightheadedness, Denies Loss of Consciousness and Denies dyspnea Respiratory: Respiratory: Reports no additional respiratory complaints and Denies dyspnea Gastrointestinal: Gastrointestinal: Reports no additional gastrointestinal complaints, Reports abdominal pain, Denies melena, Denies hematochezia, Denies change in bowel habits and Denies change in stool character Genitourinary: Genitourinary: Denies hematuria, Denies urinary frequency, Denies dysuria, Denies urinary incontinence, Denies urinary hesitancy and Denies urinary urgency Musculoskeletal: Musculoskeletal: Reports no additional musculoskeletal complaints, Denies numbness and Denies tingling Comments: left upper back pain Neurologic: Denies dizziness, Denies loss of vision, Denies numbness and Denies tingling Psychiatric: Psychiatric: Reports no additional psychiatric complaints Endocrine: Endocrine: Reports no additional endocrine complaints Hematologic/Lymphatic: Hematologic/Lymphatic: Reports no additional hematologic/lymphatic complaints Allergic/Immunologic: Allergic/Immunologic: Reports no additional allergic/immunologic complaints [facility] Past Medical History Attestation statement: The following information was validated with the patient. Source: old records reviewed and nursing notes reviewed Medical History Chest discomfort SOB (shortness of breath) Right knee pain Encounter for screening for malignant neoplasm of colon Diabetes mellitus Gouty arthritis of left great toe HTN (hypertension) Migraine headache Asthma Surgical History Hx of colonoscopy Family History Family History Father No problems noted. Mother No problems noted. 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 Physical Exam ED Vital Signs: Vital Signs - 24 hr 12/19/23 14:47 12/19/23 16:46 12/19/23 18:57 Temperature 98.0 F 97.3 F 98.4 F Pulse Rate 106 H 86 91 Respiratory Rate 16 16 16 Blood Pressure 124/66 148/72 H 143/90 H Pulse Oximetry 98 98 98 Oxygen Delivery Method Room Air Room Air Room Air BMI result Body Mass Index 29.2 Const General: cooperative, no acute distress, alert and awake Nutritional Appearance: well nourished Orientation/consciousness: patient oriented x3 Limitations: no limitations HENMT Head: Yes normal to inspection and Yes atraumatic Ears: hearing grossly normal bilaterally and external ears normal General nose exam: Normal external nose present, no nasal discharge noted and no epistaxis Face and sinus: Yes normal facial exam, No abrasion and No laceration Mouth: Normal oral and palatal mucosa present, no drooling and no muffled voice Eyes General: appearance normal, both eyes and all related structures Periorbital: periorbital findings normal Eyelids: Yes eyelids normal Conjunctivae: conjunctivae normal Pupils: Equal, round and reactive pupils present EOM: EOMs intact bilaterally Neck Neck: Yes normal visual inspection, Yes full ROM and Yes no lymphadenopathy Chest Chest palpation & inspection: normal inspection of the chest Resp Effort & Inspection: normal respiratory effort and able to speak in complete sentences GI Inspection: Yes normal to inspection Palpation (GI): Soft to palpation, not firm, nontender, no guarding and not rigid General: Yes no CVA tenderness Back/Spine/Pelvis Back: no CVA tenderness Cervical Spine: normal cervical lordosis and cervical ROM normal Thoracic/Lumbar Spine: thoracic and lumbar spine normal to inspection and thoraco-lumbar ROM normal Pelvis: no pain with anterior-posterior compression Neuro General: patient oriented x3 and moves all extremities Cranial nerves: Yes Equal, round and reactive pupils present Cognition (Neuro): normal cognition Motor exam (neuro): 5/5 motor strength present throughout Sensory Exam: Normal double simultaneous stimulation for sensation Coordination: [id number] test normal Extrem General: Yes normal to inspection, Yes full ROM and Yes capillary refill normal Psych Appearance: grossly normal Mental Status: mental status grossly normal Affect: normal affect Attitude: cooperative Thought process: Normal thought process present Thought content: Normal thought content present Insight: Good insight present (Psych) Course Course Course Narrative: RME:?58 yo female hx of DM, HTN, CPPD here w/ lower abdominal pain x3 days. Abd located to b/l suprapubic region. Passing BM regularly. Has never had this pain before. States she has all reproductive organs. Denies fever, chills, N/V, dysuria, hematuria, vaginal bleeding, flank pain, constipation, diarrhea, hematochezia, melena. No known sick contacts. PE: ttp of suprapubic region. no rebound/ guarding. normoactive bs x4. labs, UA, ct ordered Full HPI, ROS and PE to be performed by the primary ED provider. Medications Administered Discontinued Medications Generic Name Dose Route Start Last Admin Trade Name Freq PRN Reason Stop Dose Admin Cyclobenzaprine HCl 5 mg 12/19/23 18:27 12/19/23 18:54 Cyclobenzaprine Hcl 5 Mg Tablet PO 12/19/23 18:28 5 mg ONCE ONE Administration Medical Decision Making Medical Decision Making [facility] Narrative: Patient is a 58 year old assigned female at with a history of HTN and DM presenting to the emergency department today with abdominal pain and left upper back pain with movement. Patient's physical exam was unremarkable. Patient's blood work was unremarkable. Patient's urine showed no acute process. Patient's EKG was unremarkable. Patient's abdomen/pelvis CT showed constipation. I explained my physical exam findings as well as all test results to the patient. I answered all questions asked by the patient. I stressed the importance of the patient taking her medication as prescribed. I stressed the importance of the patient following up with her primary care provider. I stressed the importance of the patient returning to the emergency department immediately if her symptoms were to worsen or if she were to develop any dizziness, shortness of breath, difficulty breathing, chest pain, blurry vision, loss of vision, nausea, vomiting, abdominal pain, fever, chills, back pain, or any other complaints. Patient verbalized agreement and understanding with this treatment plan and discharge. Differential Diagnosis Differential Diagnoses: The differential diagnosis associated with the presentation includes Abdominal pain Constipation Left upper back pain Admission/Observation Consideration of admission/observation: Escalation of care including admission/observation considered Patient would have been admitted to the hospital had her work up had any findings where hospital admission was appropriate and her clinical presentation warranted hospital admission. Lab Data [facility] Lab Attestation statement: I reviewed the patient's lab results. My interpretation of these results are in the [facility] Rationale portion of this note. 12/19/23 15:02 12/19/23 15:02 Labs: Lab Results 12/19/23 Range/Units 15:02 WBC 6.5 (4.8-10.8) X10*3/uL RBC 4.02 L (4.20-5.50) X10*6/uL Hgb 13.1 (12.0-16.0) g/dl Hct 38.2 (37.0-47.0) % MCV 95.0 (80.0-98.0) fL MCH 32.6 (27.0-33.0) pg MCHC 34.3 (31.0-35.0) g/dl RDW 12.8 (11.0-16.0) % Plt Count 307 (160-400) X10*3/uL MPV 9.5 (9.4-12.3) fL Immature Gran % (Auto) 0.5 H (0.0-0.4) % Neut % (Auto) 56.1 (45-73) % Lymph % (Auto) 35.4 (20-40) % Nolan % (Auto) 6.0 (2-11) % Eos % (Auto) 1.4 (0-4) % Baso % (Auto) 0.6 (0-2) % Lymph # (Auto) 2.3 (1.2-4.9) X10*3/uL Nolan # (Auto) 0.4 (0.1-1.2) X10*3/uL Eos # (Auto) 0.1 (0.0-0.4) X10*3/uL Baso # (Auto) 0.0 (0.0-0.2) X10*3/uL Abs Immat Gran (auto) 0.03 (0.00-0.03) X10*3/uL Absolute Neuts (auto) 3.6 (2.0-8.3) x10*3/uL Absolute Nucleated RBC 0.000 (0.0-0.012) X10*3/uL Nucleated RBC % (auto) 0.0 (0.0-0.2) /100WBC Sodium 141 (135-145) mmol/L Potassium 4.0 (3.3-5.1) mmol/L Chloride 106 (96-108) mmol/L Carbon Dioxide 26 (22-29) mmol/L Anion Gap 13 (12-20) BUN 15 (9-16) mg/dL Creatinine 0.85 (0.5-1.4) mg/dL Estim Creat Clear Calc 63.4 Estimated GFR > 60 Random Glucose 147 H (60-115) mg/dL Calcium 9.6 (8.4-10.2) mg/dL Magnesium 1.8 (1.6-2.6) mg/dL Total Bilirubin 0.4 (0.0-1.0) mg/dL AST 13 (5-31) U/L ALT 11 (0-31) U/L Alkaline Phosphatase 92 (39-117) U/L Total Protein 7.3 (6.5-8.0) g/dL Albumin 4.1 (3.5-5.0) g/dL Lipase 20 (8-78) U/L Urine Color Yellow Urine Appearance Clear Urine pH 6.0 (5.0-9.0) Ur Specific [place] 1.020 (1.005-1.025) Urine Protein Negative (Neg-Trace) mg/dL Urine Glucose (UA) Negative (Negative) mg/dL Urine Ketones Negative (Negative) mg/dL Urine Blood Negative (Negative) Urine Nitrite Negative (Negative) Ur Leukocyte Esterase Small (1+) H (Negative) Urine RBC 0-2 (0-2) /HPF Urine WBC 0-5 (0-5) /HPF Ur Squamous Epith Cells 3-5 (0-2) /HPF Urine Bacteria None Seen (None Seen) Hyaline Casts 0-2 (0-2) /LPF Independent Interpretation I performed an independent interpretation of an: CT Scan Interpretation: My interpretation is in agreement with the radiologist's impression of this imaging study. EXAMINATION: CT ABDOMEN AND PELVIS WITHOUT CONTRAST CLINICAL INFORMATION: Lower abdominal pain COMPARISON: CT abdomen and pelvis 01/29/2023 TECHNIQUE: Multidetector volumetric imaging was performed from the superior aspect of the liver through the pubic symphysis. Sagittal and coronal reformatted images were obtained on the technologist's workstation. This CT examination was performed using dose optimization techniques as appropriate, variously including the following: *Automated exposure control *Adjustment of mA and/or kV according to patient size (this includes techniques or standardized protocols for targeted exams where dose is matched to indication/reason for exam; i.e. extremities or head) *Use of iterative reconstruction technique DLP: 363 mGy-cm FINDINGS: LUNG BASES: The visualized lung bases are unremarkable. LIVER, GALLBLADDER, AND BILIARY TREE: The liver is normal in size, shape, and attenuation. No focal hepatic lesion or biliary ductal dilatation is present. The gallbladder is unremarkable with no evidence of radiopaque gallstones, gallbladder wall thickening, or obvious pericholecystic inflammatory changes. PANCREAS: Unremarkable. SPLEEN: Unremarkable. ADRENAL GLANDS: Unremarkable. KIDNEYS AND URETERS: The kidneys are normal in size, shape, and attenuation. No hydronephrosis, hydroureter, or calculi seen. No perinephric stranding. BLADDER: Unremarkable. GASTROINTESTINAL TRACT: There is scattered stool seen throughout the colon without distention. Ileocecal junction the small bowel loops are normal caliber. Appendix is not seen with certainty. No inflammatory process seen. ABDOMINAL WALL: No significant hernia is appreciated. LYMPH NODES: Normal. VASCULAR: Unremarkable. PELVIC VISCERA: The uterus is anteverted. There is no free fluid or free air. No abnormal pelvic lymph nodes. OSSEOUS STRUCTURES: No aggressive lytic or sclerotic process seen. There is mild ventral spondylosis dorsal spine. CT/CT abdomen pelvis wo IV con IMPRESSION: 1. No acute intra-abdominal process seen. 2. Mild constipation. Fleischner guidelines were followed. Dictated By: Matthew Davidson MD Signed By: Electronically signed by Matthew Davidson MD 12/19/23 1536 Radiology Impression Discussion of test interpretation with radiology: I have reviewed the radiologist's reading. Chronic Conditions Patient?s care impacted by: Diabetes Discharge Plan Discharge Clinical Impression: Constipation, Back pain Patient Disposition: Home, Self-Care Instructions: Constipation (DC), Back Pain (ED) Additional Instructions: Follow up with your primary care provider. Return to the emergency department immediately if your symptoms worsen or if you develop any dizziness, shortness of breath, difficulty breathing, chest pain, blurry vision, loss of vision, nausea, vomiting, abdominal pain, fever, chills, back pain, or any other complaints. Roxy un seguimiento con rothman proveedor de atenci?n primaria. Regrese al departamento de emergencias inmediatamente si dion s?ntomas empeoran o si presenta mareos, dificultad para respirar, dificultad para respirar, dolor en el pecho, visi?n borrosa, p?rdida de la visi?n, n?useas, v?mitos, dolor abdominal, fiebre, escalofr?os, dolor de espalda o cualquier otras quejas. Prescriptions: New cyclobenzaprine 5 mg tablet 5 mg PO TID PRN (Reason: muscle spasm) 7 Days Qty: 21 0RF magnesium citrate Solution 37.5 ml PO BID PRN (Reason: constipation) Qty: 296 0RF No Action acyclovir 400 mg tablet 400 mg PO TID 7 Days Qty: 21 0RF lidocaine HCl [Lidocaine Viscous] 2 % solution 1 appl mucous membrane TID PRN (Reason: mouth pain) Qty: 100 0RF Rx Instructions: Do not use more than 3 days. Magic Mouthwash Diphen/Lido/Antacid 1:1:1 240 mL suspension 5 ml PO TID Qty: 240 0RF Rx Instructions: Lidocaine Viscous 2 % 80mL; diphenhydramine 12.5 mg/5 mL 80mL; aluminum-mag hydrox-simeth [id number]/5mL 80mL Swish and spit, do not swallow lidocaine HCl [Lidocaine Viscous] 2 % solution 1 appl mucous membrane TID PRN (Reason: pain) Qty: 100 0RF famotidine 20 mg tablet 20 mg PO BID sumatriptan succinate [Imitrex] 50 mg tablet See Rx Instructions PO .COMPLEX PRN (Reason: Migraine Headache) Rx Instructions: take 1 tab at onset of headache; if no relief may repeat 1 tab after at least 2 hrs; max = 4 tabs/24 hr PO losartan 50 mg tablet 50 mg PO DAILY cholecalciferol (vitamin D3) 25 mcg (1,000 unit) capsule 25 mcg PO DAILY albuterol sulfate [ProAir HFA] 90 mcg/actuation HFA aerosol inhaler 2 puff inhalation Q4H PRN metformin 1,000 mg tablet 1,000 mg PO BID omeprazole 20 mg capsule,delayed release(DR/EC) 20 mg PO DAILY tramadol 50 mg tablet 50 mg PO Q6H PRN (Reason: severe pain) simethicone 125 mg tablet,chewable 125 mg PO Q8H PRN (Reason: gas) dicyclomine 10 mg capsule 10 mg PO BID PRN (Reason: abdominal discomfort) Qty: 90 2RF Referrals: Brianna Matt MD [Primary Care Provider] - Stand Alone Forms: Work/School Release Interventions: ED Discharge Assessment Last Done: 12/19/23 19:04 Discharge Date/Time: 12/19/23 19:05 Print Language: Ukrainian
[2023-12-19 15:06] LABS: MANUAL DIFF FLAG NO
[2023-12-19 15:09] LABS: Basophils Percent Auto 0.6 % (0-2); Eosinophils Absolute Auto 0.1 X10*3/uL (0.0-0.4); Eosinophils Percent Auto 1.4 % (0-4); Hematocrit 38.2 % (37.0-47.0); Hemoglobin 13.1 g/dl (12.0-16.0); Imm Gran Abs Auto 0.03 X10*3/uL (0.00-0.03); Imm Gran Pct Auto 0.5 % (0.0-0.4); Lymphocytes Absolute Auto 2.3 X10*3/uL (1.2-4.9); Lymphocytes Percent Auto 35.4 % (20-40); Mean Corpuscular HGB Conc 34.3 g/dl (31.0-35.0); Mean Corpuscular Hemoglobin 32.6 pg (27.0-33.0); Mean Platelet Volume 9.5 fL (9.4-12.3); Monocytes Absolute Auto 0.4 X10*3/uL (0.1-1.2); Neutrophils Absolute Auto 3.6 x10*3/uL (2.0-8.3); Neutrophils Percent Auto 56.1 % (45-73); Platelet Count 307 X10*3/uL (160-400); Red Blood Count 4.02 X10*6/uL (4.20-5.50); Red Cell Distribution Width 12.8 % (11.0-16.0); White Blood Count 6.5 X10*3/uL (4.8-10.8)
[2023-12-19 15:13] LABS: Appearance Urine Clear; Color Urine Yellow; Glucose Urine UA Negative (Negative); Leukocyte Esterase Urine Small (1+) (Negative); Nitrite Urine Negative (Negative); UMIC TRIGGER UACC YES; Urine Blood Negative (Negative); Urine Ketones Negative (Negative); Urine Protein Negative (Neg-Trace)
[2023-12-19 15:20] LABS: Alanine Aminotransferase 11 U/L (0-31); Albumin Level 4.1 g/dL (3.5-5.0); Alkaline Phosphatase 92 U/L (39-117); Anion Gap 13 (12-20); Aspartate Amino Transferase 13 U/L (5-31); Bilirubin Total 0.4 mg/dL (0.0-1.0); Blood Urea Nitrogen 15 mg/dL (9-16); Calcium 9.6 mg/dL (8.4-10.2); Carbon Dioxide 26 mmol/L (22-29); Chloride 106 mmol/L (96-108); Creatinine Clr Calc Pharmacy 63.4; Estimated Glomerular Filt Rate > 60; Glucose Random 147 mg/dL (60-115); Lipase 20 U/L (8-78); Magnesium 1.8 mg/dL (1.6-2.6); Sodium 141 mmol/L (135-145); Total Protein 7.3 g/dL (6.5-8.0)
[2023-12-19 15:24] LABS: Bacteria Urine None Seen (None Seen); Hyaline Casts Urine 0-2 /LPF (0-2); RBC Urine 0-2 /HPF (0-2); UACC Culture Trigger YES; WBC Urine 0-5 /HPF (0-5)
[2023-12-19 16:46] VITALS: BP 148/72; PULSE 86; RESP 16; TEMP 36.3; O2SAT 98
--- NOTE | 2023-12-19 18:27 | PC.NURSE ---
assumed care of this pt at 1815. pt reports 10/10 back pain and belly pain. pt a+o x3, vss.
[2023-12-19] MEDS: Cyclobenzaprine HCl 5 MG TABLET PO (18:54)
[2023-12-19 18:57] VITALS: BP 143/90; PULSE 91; RESP 16; TEMP 36.9; O2SAT 98
== END 2023-12-19 19:05 | disposition home or self-care (01) ==
PROVIDERS: Physician Assistant Medical; Emergency Provider Emergency Medicine; PCP Internal Medicine
DX: K59.00 Constipation, unspecified (principal); M54.6 Pain in thoracic spine
CPT/HCPCS: 36415; 74176; 80053; 81001; 83690; 83735; 85025; 87086; 99284

== ENCOUNTER 2023-12-31 17:50 | Emergency (ER) | payer MEDICAID, SELFPAY ==
[2023-12-31 18:11] VITALS: BP 132/81; PULSE 101; RESP 16; O2SAT 98; BMI 29.3
[2023-12-31 19:35] VITALS: BP 123/78; PULSE 106; RESP 16; TEMP 36.7; O2SAT 93
[2023-12-31 19:55] VITALS: PULSE 95; O2SAT 99
--- NOTE | 2023-12-31 22:10 | ED.GENADULT ---
HPI - General Adult General Chief complaint: Dental/Oral Stated complaint: ? 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 She states the pain started today while she was watching TV Denies any trauma to the area. She states she feels like the pain is ?deep inside. ? She states the pain is worse with eating/chewing Related Data Home Medications Medication Instructions Recorded Confirmed cholecalciferol (vitamin D3) 25 25 mcg PO DAILY 09/12/20 07/24/23 mcg (1,000 unit) capsule famotidine 20 mg tablet 20 mg PO BID 09/12/20 07/24/23 losartan 50 mg tablet 50 mg PO DAILY 09/12/20 07/24/23 sumatriptan succinate 50 mg tablet See Rx Instructions PO .COMPLEX 09/12/20 07/24/23 (Imitrex) PRN Migraine Headache albuterol sulfate 90 mcg/actuation 2 puff inhalation Q4H PRN 08/21/22 07/24/23 aerosol inhaler (ProAir HFA) metformin 1,000 mg tablet 1,000 mg PO BID 08/21/22 07/24/23 omeprazole 20 mg capsule,delayed 20 mg PO DAILY 08/21/22 07/24/23 release simethicone 125 mg chewable tablet 125 mg PO Q8H PRN gas 07/24/23 07/24/23 tramadol 50 mg tablet 50 mg PO Q6H PRN severe pain 08/28/23 Previous Rx's Medication Instructions Recorded dicyclomine 10 mg capsule 10 mg PO BID PRN abdominal 05/27/23 discomfort #90 caps acyclovir 400 mg tablet 400 mg PO TID 1 week #21 tabs 08/12/23 lidocaine HCl 2 % mucosal solution 1 appl mucous membrane TID PRN 09/15/23 (Lidocaine Viscous) mouth pain #100 mL Magic Mouthwash 5 ml PO TID #240 mL 09/26/23 Diphen/Lido/Antacid 1:1:1 240 mL suspension lidocaine HCl 2 % mucosal solution 1 appl mucous membrane TID PRN 10/23/23 (Lidocaine Viscous) pain #100 mL cyclobenzaprine 5 mg tablet 5 mg PO TID PRN muscle spasm 7 12/19/23 days #21 tabs magnesium citrate 37.5 ml PO BID PRN constipation 12/19/23 #296 mL tramadol 50 mg tablet 50 mg PO Q6H PRN severe pain 12/31/23 (scale score 7-10) #12 tabs Allergies Allergy/AdvReac Type Severity Reaction Status Date / Time No Known Allergies Allergy Verified 12/19/23 14:47 [No Known Allergies*] Review of Systems Constitutional: Constitutional: Denies chills, Denies fever(s) and Denies headache(s) Eyes: Eyes: Denies blurry vision ENT: Reports otalgia, Denies headache(s) and Reports mouth pain Cardiovascular: Cardiovascular: Denies chest pain Neurologic: Denies headache(s) PMFSH Past Medical History Medical History Chest discomfort SOB (shortness of breath) Right knee pain Encounter for screening for malignant neoplasm of colon Diabetes mellitus Gouty arthritis of left great toe HTN (hypertension) Migraine headache Asthma Surgical History Hx of colonoscopy Family History Family History Father No problems noted. Mother No problems noted. 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 The patient is exquisitely tender to the left temporomandibular joint. Head: Yes normocephalic and Yes atraumatic Ears: external ears normal and TM's normal bilaterally Teeth and gingiva: dentition normal and dentition not poor Throat: Yes posterior oropharynx normal Eyes Eyelids: Yes eyelids normal Conjunctivae: conjunctivae normal Sclerae: sclerae normal Corneas: corneas normal Pupils: Equal, round and reactive pupils present EOM: EOMs intact bilaterally Neck Neck: Yes full ROM Resp Effort & Inspection: normal respiratory effort, able to speak in complete sentences and not labored Neuro General: patient oriented x3 Cranial nerves: Yes Equal, round and reactive pupils present and Yes Bilaterally intact EOM present Cognition (Neuro): normal cognition Extrem Other: Moving all extremities well without any obvious deformities Medications Administered Discontinued Medications Generic Name Dose Route Start Last Admin Trade Name Freq PRN Reason Stop Dose Admin Tramadol HCl 50 mg 12/31/23 21:49 12/31/23 22:20 Tramadol Hcl 50 Mg Tablet PO 12/31/23 21:50 50 mg ONCE ONE Administration Medical Decision Making Medical Decision Making [facility] Narrative: Patient's physical exam is most consistent with TMJ disorder. She has no evidence of dental caries, dental abscess or dental infection. Patient was discharged with tramadol for control of her pain Differential Diagnosis Differential Diagnoses: The differential diagnosis associated with the presentation includes TMJ disorder Arthralgia Dental abscess Dental caries Gingivitis Discharge Plan Discharge Clinical Impression: TMJ arthralgia Patient Disposition: Home, Self-Care Instructions: Temporomandibular Disorder (ED) Additional Instructions: Your physical exam shows no signs of infection or dental issues Your pain is most likely related to temporomandibular joint disorder Use tramadol as needed for severe breakthrough pain This may make you sleepy, do not drink alcohol or drive after taking Follow-up with your primary doctor Prescriptions: New tramadol 50 mg tablet 50 mg PO Q6H PRN (Reason: severe pain (scale score 7-10)) Qty: 12 0RF No Action acyclovir 400 mg tablet 400 mg PO TID 7 Days Qty: 21 0RF lidocaine HCl [Lidocaine Viscous] 2 % solution 1 appl mucous membrane TID PRN (Reason: mouth pain) Qty: 100 0RF Rx Instructions: Do not use more than 3 days. Magic Mouthwash Diphen/Lido/Antacid 1:1:1 240 mL suspension 5 ml PO TID Qty: 240 0RF Rx Instructions: Lidocaine Viscous 2 % 80mL; diphenhydramine 12.5 mg/5 mL 80mL; aluminum-mag hydrox-simeth [id number]/5mL 80mL Swish and spit, do not swallow lidocaine HCl [Lidocaine Viscous] 2 % solution 1 appl mucous membrane TID PRN (Reason: pain) Qty: 100 0RF cyclobenzaprine 5 mg tablet 5 mg PO TID PRN (Reason: muscle spasm) 7 Days Qty: 21 0RF magnesium citrate Solution 37.5 ml PO BID PRN (Reason: constipation) Qty: 296 0RF famotidine 20 mg tablet 20 mg PO BID sumatriptan succinate [Imitrex] 50 mg tablet See Rx Instructions PO .COMPLEX PRN (Reason: Migraine Headache) Rx Instructions: take 1 tab at onset of headache; if no relief may repeat 1 tab after at least 2 hrs; max = 4 tabs/24 hr PO losartan 50 mg tablet 50 mg PO DAILY cholecalciferol (vitamin D3) 25 mcg (1,000 unit) capsule 25 mcg PO DAILY albuterol sulfate [ProAir HFA] 90 mcg/actuation HFA aerosol inhaler 2 puff inhalation Q4H PRN metformin 1,000 mg tablet 1,000 mg PO BID omeprazole 20 mg capsule,delayed release(DR/EC) 20 mg PO DAILY tramadol 50 mg tablet 50 mg PO Q6H PRN (Reason: severe pain) simethicone 125 mg tablet,chewable 125 mg PO Q8H PRN (Reason: gas) dicyclomine 10 mg capsule 10 mg PO BID PRN (Reason: abdominal discomfort) Qty: 90 2RF Interventions: ED Discharge Assessment Last Done: 12/31/23 22:23 Discharge Date/Time: 12/31/23 22:24
[2023-12-31] MEDS: traMADoL HCL 50 MG TABLET PO (22:20)
== END 2023-12-31 22:24 | disposition home or self-care (01) ==
PROVIDERS: Emergency Provider Emergency Medicine
DX: M26.623 Arthralgia of bilateral temporomandibular joint (principal); K08.89 Other specified disorders of teeth and supporting structures
CPT/HCPCS: 99283

== ENCOUNTER 2024-01-13 09:39 | Outpatient (REF) | payer MEDICAID, SELFPAY ==
[2024-01-13 11:59] LABS: Cholesterol 141 mg/dL (<200); HDL Cholesterol 42 mg/dL (>40); LDL Cholesterol Calculated 86 mg/dL (<100); Triglycerides 65 mg/dL (<150)
[2024-01-13 12:01] LABS: HIV AB/AG Nonreactive (Nonreactive); HIV Num 1 0.06 S/CO (0.00-0.99); ~Hepatitis C Antibody Nonreactive (Nonreactive)
== END 2024-01-13 09:40 | disposition home or self-care (01) ==
LOC: HO.HHCL 09:39
PROVIDERS: Visit Provider Internal Medicine
DX: R63.4 Abnormal weight loss (principal)
CPT/HCPCS: 36415; 80061; 84443; 86803; 87389

== ENCOUNTER 2024-01-20 13:19 | Outpatient (REF) | payer MEDICAID, SELFPAY ==
--- NOTE | ~2024-01-20 | XR_ITS ---
EXAMINATION: XR HAND, RIGHT CLINICAL INFORMATION: Right hand pain. COMPARISON: April 24, 2023. TECHNIQUE: PA, lateral, and oblique views of the right hand. FINDINGS: The second DIP joint is held in flexion on all views, somewhat limiting the study. Study is otherwise unremarkable. No fracture or dislocation is appreciated. Bony mineralization appears preserved. Joint spaces appear maintained. XR/XR hand RT min 3V IMPRESSION: Second DIP joint held in flexion on all views. Otherwise unremarkable study.
== END 2024-01-20 13:20 | disposition home or self-care (01) ==
LOC: HO.HOSX 13:19
PROVIDERS: Visit Provider Orthopaedic Surgery
DX: M11.0 Hydroxyapatite deposition disease (principal)
CPT/HCPCS: 73130; 99202

== ENCOUNTER 2024-01-20 13:19 | Outpatient (AMB) | payer MEDICAID, SELFPAY ==
--- NOTE | 2024-01-20 13:46 | MHC.OFFVIS ---
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 States she has pain in her index finger from her PIP to her MCP. She is not table to fully bend her finger and is painful to when gripping or gripping. She has tried O.T (10 sessions) with no improvement. Denies recent injury, numbness or tingling. She is diabetic and is unsure of her A1C. 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 She complains of pain with in the knuckles of her index finger. She says she is unable to make a fist with her index finger without pain, and she feels limited in her daily activities. She says this pain is causing her to be unable to work. She says she tries to move her finger at home, but this is difficult & painful and she struggles to do any exercises. She has been seen by Dr. Goss, found no relief from ~1 week of colchicine, and received an index finger MCP joint steroid injection on 08/28/23, with [ ] relief. She says she tried ~10 sessions of OT hand therapy, and found no improvement. [facility] Medical History Chest discomfort SOB (shortness of breath) Right knee pain Encounter for screening for malignant neoplasm of colon Diabetes mellitus Gouty arthritis of left great toe HTN (hypertension) Migraine headache Asthma Surgical History Hx of colonoscopy Family History Father No problems noted. Mother No problems noted. 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 Review of Systems Const All systems reviewed & are unremarkable except as noted in HPI and below Physical Exam Vital Signs: BMI result Body Mass Index 29.3 Const General: cooperative, healthy appearing and no acute distress Orientation/consciousness: patient oriented x3 HEENT Head: Yes normocephalic and Yes atraumatic Eyes EOM: EOMs intact bilaterally Resp Effort & Inspection: normal respiratory effort and able to speak in complete sentences Cardio Jugular venous distension: no JVD Skin General skin exam: turgor normal Rashes: no rashes Neuro General: patient oriented x3 Extrem Other: Evaluation of Right Upper Extremity: The patient is alert, oriented, and in no acute distress Neuro: Median, Ulnar, Radial nerves motor and sensory intact and sensation is normal to the tips of all digits Vascular: Cap refill brisk ROM: Initially she was hesitant to move her index finger and was holding it extended at the MCP & PIP joints When asking her to make a fist she would bring all her fingers but the index closed to a fist She can bring her index finger MCP joint ~65 degrees and her PIP joint to ~40 degrees of flexion When she relaxed she was able to improve her MCP joint to ~80-85 degrees of flexion As we tried to work on exercises in clinic today, she would bring her index fingertip to ~3cm from her palm, but said she would not bring it farther She has no swelling, erythema, or warmth about the index finger the MCP & PIP joints are stable on exam Skin: No lacerations or abrasions. General: No Ecchymosis. No Erythema or evidence of infection. Radiographs: 3 views of the right hand were taken and viewed by me today in clinic. They show no fractures or dislocations. 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 There are some very faint calcifications, primarily along the track of the ulnar collateral ligament of the 2nd MCP joint. Right hand MRI FINDINGS: There is intermediate signal and mild edema along the ulnar collateral ligament at the 2nd MCP joint corresponding with the area of faint calcification on the radiographs likely representing calcific capsulitis. This could be the sequela of a remote injury. There is a partial tear of the radial collateral ligament at its insertion onto the 2nd metacarpal head. Collateral ligaments appear otherwise intact. No joint effusions or active erosions. No fracture. Flexor and extensor tendons appear intact. Mild degenerative changes including small dorsal osteophytes of the 2nd and 3rd DIP joints. 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 IMPRESSION: 1. Probable calcific capsulitis of the 2nd MCP joint with a partial tear of the radial collateral ligament at its insertion onto the metacarpal head. 2. Mild degenerative changes as described. Dictated By: Adam Mitchell MD 06/25/23 Psych Appearance: grossly normal Affect: normal affect Attitude: cooperative Assessment & Plan Assessment & Plan (1) Stiffness of finger joint of right hand: Code(s): M25.641 - Stiffness of right hand, not elsewhere classified Plan Assessment & Plan: 1. Right index finger stiffness Slight calcifications seen on radiographs along the UCL, but at this point I think it is not causing any particular problems. No acute processes that I can see. I educated her about this condition The biggest problem she has is the stiffness in her index finger MCP and PIP joints. We tried to do exercises today in clinic to bring all of her fingers including the index finger to a fully closed fist, but she was very resistant to this. That being said, we got her very close. I saw her get her MCP joint to about 80-85 degrees of flexion and then she was able to bring the tip of her index finger to about 3 cm from her palm. I was very clear with her that what she needs to do is work on exercises to bring her fingers to a fully closed fist and she needs to do this at least 20 times a day and hold it there for about 20-30 seconds each time to stretch out the tissues around the finger. If she ignores my advice, I do not know that she will get better. However, if she would work on these exercises to bring her fingers closed to a fist, she should be able to do it by the end of the week, at which point this should start becoming less painful. She should work on these ROM exercises 20x daily at home She refused another referral to OT hand therapy I have no reason to keep her from returning to work at full duty. She will follow up prn Scribed for Deirdre Jones MD by Teddy Adan, certified medical technician assistant, on 01/20/24 at 2:25 PM, EST. Orders: Orders XR hand RT min 3V Today M79.641 - Pain in right hand Coding Level of Care Code New Pt Level 3 (42619) Diagnoses Stiffness of finger joint of right hand M25.641
[2024-01-20 13:47] VITALS: BMI 29.3
== END 2024-01-20 14:27 | disposition home or self-care (01) ==
PROVIDERS: Referring Provider Internal Medicine; Visit Provider Orthopaedic Surgery
DX: M25.641 Stiffness of right hand, not elsewhere classified (principal)
CPT/HCPCS: 99203

== ENCOUNTER 2024-03-03 10:13 | Outpatient (REF) | payer MEDICAID, SELFPAY ==
[2024-03-04 03:17] LABS: Syphilis Screen Nonreactive (Nonreactive)
[2024-03-04 03:29] LABS: HBS Num1 22.12 mIU/mL (0-7.99); HBc Num1 0.12 S/CO (0.00-0.79); HBsAGNum1 0.33 S/CO (0.00-0.99); Hepatitis B Core Antibody Nonreactive (Nonreactive); Hepatitis B Surface Antigen Negative (Negative); ~Hepatitis B Surface Antibody REACTIVE (Nonreactive)
[2024-03-04 10:18] LABS: Herpes Simplex Type 2 IgG <0.90 index
== END 2024-03-03 10:14 | disposition home or self-care (01) ==
LOC: HO.HHCL 10:13
PROVIDERS: Visit Provider Internal Medicine Infectious Disease
DX: K12.0 Recurrent oral aphthae (principal); Z20.2 Contact with and (suspected) exposure to infections with a predominantly sexual mode of transmission
CPT/HCPCS: 36415; 86695; 86696; 86704; 86706; 86780; 87340

== ENCOUNTER 2024-04-14 08:35 | Outpatient (REF) | payer MEDICAID, SELFPAY ==
[2024-04-14 11:37] LABS: MANUAL DIFF FLAG NO
[2024-04-14 11:41] LABS: Basophils Percent Auto 0.5 % (0-2); Eosinophils Absolute Auto 0.2 X10*3/uL (0.0-0.4); Eosinophils Percent Auto 2.5 % (0-4); Hematocrit 37.6 % (37.0-47.0); Hemoglobin 12.5 g/dl (12.0-16.0); Imm Gran Abs Auto 0.01 X10*3/uL (0.00-0.03); Imm Gran Pct Auto 0.2 % (0.0-0.4); Lymphocytes Percent Auto 50.2 % (20-40); Mean Corpuscular HGB Conc 33.2 g/dl (31.0-35.0); Mean Corpuscular Hemoglobin 31.9 pg (27.0-33.0); Mean Corpuscular Volume 95.9 fL (80.0-98.0); Mean Platelet Volume 10.2 fL (9.4-12.3); Monocytes Absolute Auto 0.4 X10*3/uL (0.1-1.2); Monocytes Percent Auto 6.2 % (2-11); Neutrophils Absolute Auto 2.4 x10*3/uL (2.0-8.3); Neutrophils Percent Auto 40.4 % (45-73); Platelet Count 323 X10*3/uL (160-400); Red Blood Count 3.92 X10*6/uL (4.20-5.50); Red Cell Distribution Width 13.2 % (11.0-16.0)
[2024-04-14 11:43] LABS: Appearance Urine Clear; Color Urine Yellow; Glucose Urine UA Negative (Negative); Leukocyte Esterase Urine Trace (Negative); Nitrite Urine Negative (Negative); PH 6.5 (5.0-9.0); Specific Gravity - Urine 1.025 (1.005-1.025); UMIC TRIGGER UACC YES; Urine Blood Negative (Negative); Urine Ketones Negative (Negative); Urine Protein Negative (Neg-Trace)
[2024-04-14 11:50] LABS: Bacteria Urine None Seen (None Seen); Hyaline Casts Urine 0-2 /LPF (0-2); RBC Urine 0-2 /HPF (0-2); WBC Urine 0-5 /HPF (0-5)
[2024-04-14 12:00] LABS: Anion Gap 12 (12-20); Blood Urea Nitrogen 18 mg/dL (9-16); C Reactive Protein 0.54 mg/dL (< or = 0.50); Calcium 9.5 mg/dL (8.4-10.2); Carbon Dioxide 27 mmol/L (22-29); Chloride 107 mmol/L (96-108); Estimated Glomerular Filt Rate > 60; Glucose Random 182 mg/dL (60-115); Sodium 142 mmol/L (135-145)
[2024-04-14 13:54] LABS: Folate 8.4 ng/mL (> or = 4.0); Vitamin B12 304 pg/mL (200-900)
[2024-04-18 14:44] LABS: Vitamin D 25-OH, D2 <4 ng/mL; Vitamin D 25-OH, D3 33 ng/mL; Vitamin D 25-OH, Total 33 ng/mL (30-100)
== END 2024-04-14 08:36 | disposition home or self-care (01) ==
LOC: HO.HHCL 08:35
PROVIDERS: Internal Medicine; Nurse Practitioner Family; Visit Provider Internal Medicine
DX: R42 Dizziness and giddiness (principal); R31.29 Other microscopic hematuria; R19.7 Diarrhea, unspecified; K58.9 Irritable bowel syndrome, unspecified; E55.9 Vitamin D deficiency, unspecified
CPT/HCPCS: 36415; 80048; 81001; 82306; 82607; 82746; 85025; 86140

== ENCOUNTER 2024-06-07 13:30 | Outpatient (REF) | payer MEDICAID, SELFPAY | END 2024-06-07 13:31 | disposition home or self-care (01) | LOC: HO.MAMMO 13:30 | PROVIDERS: PCP Internal Medicine; Visit Provider Internal Medicine | DX: Z12.31 Encounter for screening mammogram for malignant neoplasm of breast (principal) | CPT/HCPCS: 77063; 77067 ==

== ENCOUNTER → 2024-06-07 13:45 | Outpatient (BNV) | payer MEDICAID, SELFPAY | PROVIDERS: PCP Internal Medicine; Visit Provider Radiology Diagnostic Radiology | DX: Z12.31 Encounter for screening mammogram for malignant neoplasm of breast (principal) | CPT/HCPCS: 77063; 77067 ==